=== PATIENT | male | born 1995 | race Caucasian/White ===

== ENCOUNTER 2023-05-23 14:41 | Outpatient (AMB) | payer BC, SELFPAY ==
[2023-05-23 14:46] VITALS: BP 120/90; PULSE 40; BMI 26.7
--- NOTE | 2023-05-23 14:46 | A.OFFVIS_ITS ---
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 We have seen him in the past in 2018. At that time, he had various symptoms including palpitations, dizziness extra. From notes, EKG with sinus bradycardia at 47 at that time and Holter had shown rare PVCs. He was only reassured. More recently, he had an episode of palpitations sometimes in December. After that, he is undergone workup through cardiology at [facility]. He has had episodes where he feels like his heart is beating very fast and also the sensation that heart is very erratic as well. Some dizziness off and on. No clear syncope. Otherwise, unlimited exercise tolerance. He has been extremely active in the past including playing various sports and also cycling outside extra. That might be the reason for low resting heart rate. [facility] Family History (Updated 05/23/23 @ 14:51 by Cassidy Singh MA) Mother A-fib Maternal Grandmother A-fib Social History (Updated 05/23/23 @ 14:52 by Cassidy Singh MA) Alcohol intake: current Alcohol intake frequency: a few times a week Patient Tobacco Use Status: Never used Tobacco Review of Systems Const Denies chills, Denies fatigue, Denies fever(s), Denies frequent falls, Denies weakness, Denies weight gain and Denies weight loss ENT Reports dizziness Card Reports chest pain, Denies leg edema, Reports lightheadedness, Denies palpitations, Denies dyspnea, Denies dyspnea on exertion and Denies orthopnea Resp Denies cough, Denies dyspnea and Denies dyspnea on exertion GI Denies bloating and Denies change in bowel habits Musc Denies muscle weakness, Denies numbness and Denies tingling Neuro Reports dizziness, Denies frequent falls, Denies numbness, Denies tingling and Denies weakness Endo Denies fatigue and Denies palpitations Physical Exam Vital Signs: Last Vital Signs Pulse 40 L 05/23/23 14:46 BP 120/90 H 05/23/23 14:46 BMI result Body Mass Index 26.7 Const General: comfortable and no acute distress Orientation/consciousness: patient oriented x3 HEENT Other: Unremarkable Head: Yes normal to inspection Neck Neck: Yes normal visual inspection Chest Chest palpation & inspection: normal inspection of the chest Resp Auscultation: clear to auscultation bilaterally Cardio Palpation: normal PMI Heart sounds: S1 normal heart sound present, S2 normal heart sound present, no gallops, no murmurs and no rubs GI Palpation (GI): Soft to palpation Back/Spine/Pelvis Other: unremarkable Skin General skin exam: no rashes or lesions noted Neuro General: patient oriented x3 Extrem General: Yes normal to inspection Psych Mental Status: mental status grossly normal Office Procedures EKG Details: EKG with sinus bradycardia at 40/Min; no significant ST-T changes and otherwise [place]remarkable[place] [id number], Complete Assessment & Plan Assessment & Plan (1) Sinus bradycardia: Code(s): R00.1 - Bradycardia, unspecified (2) Heart palpitations: Code(s): R00.2 - Palpitations (3) Elevated blood pressure reading without diagnosis of hypertension: Code(s): R03.0 - Elevated blood-pressure reading, without diagnosis of hypertension Plan All the available records were reviewed. In our prior notes from 2018, described to have sinus bradycardia 47 with Holter showing rare PVCs. At that time, normal chronotropic response on the stress test. More recently, cardiology consultation Say describes dizziness/presyncope episodes and there is mention of a blocked PAC and racing question of heart block. However, when he underwent Holter/30 day monitoring, there was really no significant arrhythmias noted. Holter had described rare PVCs/bradycardia during sleep. Heart rate average was 66/Min. In the 30 day monitor, average heart rate was 61/Min with rare PACs/PVCs. The patient had triggered the device 240 2 times but association is only with sinus/rare ectopy. In the echocardiogram, LVEF 65-70% with normal diastolic function. Normal right ventricular size and systolic function. Normal atrial dimensions. Valves are also unremarkable. In the stress test, he was able to exercise for 10:54 minutes on Gary protocol. Achieved 13.4 Mets. Reached 98% of max predicted heart rate. No ischemic findings on the EKG. Blood pressure responses also appropriate. Overall unremarkable. Hence essentially resting sinus bradycardia and rare supraventr icular/ventricular ectopy but symptoms are somewhat out of proportion to the findings. He might have had short runs of SVT but not clear. Either way, as he has slow heart rates at baseline not going to be suitable for any meds. So far, no evidence of any advanced AV blocks. Considering his young age and fairly active lifestyle vagal tone may just play a role. At this time, I am just reassuring him as much. It seems that was what done by other cardiologists including EP who have seen recently. I do suggest however doing a sleep study to ensure he does not have any occult obstructive sleep apnea. He agrees with that. With regard to blood pressure, borderline high on the diastolic side. Systolic seems normal. Possibly lose some weight for now but hold off meds. We discussed about this. Follow-up will be arranged. We will also need to look for the inpatient admission discharge summary from [facility]. Total time spent including review of data, counseling, documentation, coordination of care-50 minutes. All the available records reviewed. Orders: Orders RT home sleep study Today G47.33 - Obstructive sleep apnea (adult) (pediatric) Coding Level of Care Code New Pt Level 4 (94166) Diagnoses Sinus bradycardia R00.1 Heart palpitations R00.2 Elevated blood pressure reading without diagnosis of hypertension R03.0 CPT Codes EKG - CPT: [id number]-[id number], Complete ([id number])
== END 2023-05-23 15:23 | disposition home or self-care (01) ==
PROVIDERS: PCP Pediatrics; Visit Provider Internal Medicine
DX: R00.1 Bradycardia, unspecified (principal); R00.2 Palpitations; R03.0 Elevated blood-pressure reading, without diagnosis of hypertension
CPT/HCPCS: 93010; 99204

== ENCOUNTER → 2023-05-23 14:41 | Outpatient (BNVA) | payer BC, SELFPAY | PROVIDERS: PCP Pediatrics; Visit Provider Internal Medicine | DX: R00.1 Bradycardia, unspecified (principal); R00.2 Palpitations; R03.0 Elevated blood-pressure reading, without diagnosis of hypertension | CPT/HCPCS: 93005 ==

== ENCOUNTER 2023-08-15 14:24 | Outpatient (AMB) | payer BC, SELFPAY ==
--- NOTE | 2023-08-15 14:32 | A.OFFVIS_ITS ---
Vital Signs 08/15/23 14:33 Height 6 ft Weight 190 lb BMI 25.8 BP 116/60 Blood Pressure Location Lt brachial Position Sitting Pulse 42 L Pulse Source Monitor Intake Visit Reasons: f/u (home sleep study denied by ins) Allergies No Known Allergies Allergy (Unverified 11/14/19 16:33) Medication List - Last Reconciled 08/15/23 by Javon Rees MD buspirone 5 mg PO BID HPI Comments Details: Ry returns for follow-up. Recently seen in consultation regarding arrhythmias. We have seen him originally in 2018. At that time, he had various symptoms including palpitations, dizziness extra. From notes, EKG with sinus bradycardia at 47 at that time and Holter had shown rare PVCs. He was only reassured. More recently, he has been having brief episodes of palpitations, most likely lasting only seconds. He underwent extensive workup through [facility]. Otherwise, no symptoms like presyncope or syncope. Extremely active with no limitations. Please various sports including bicycling extra. No new concerns otherwise. [facility] Family History (Updated 05/23/23 @ 14:51 by Cassidy Singh DIRECTOR IT) Mother A-fib Maternal Grandmother A-fib Social History (Updated 05/23/23 @ 14:52 by Cassidy Singh CMA) Alcohol intake: current Alcohol intake frequency: a few times a week Patient Tobacco Use Status: Never used Tobacco Review of Systems Const Denies weakness ENT Denies dizziness Card Reports chest pain, Denies chest pain with activity, Denies syncope, Denies rapid heart rate, Denies pedal edema, Denies edema, Denies leg edema, Denies lightheadedness, Denies palpitations, Denies dyspnea, Denies dyspnea on exertion and Denies orthopnea Resp Denies cough, Denies dyspnea and Denies dyspnea on exertion GI Denies hematochezia and Denies change in stool character Musc Denies abnormal gait, Denies muscle cramps, Denies muscle weakness, Denies numbness, Denies radiating pain into limb and Denies tingling Neuro Denies abnormal gait, Denies dizziness, Denies syncope, Denies numbness, Denies tingling and Denies weakness Endo Denies palpitations Physical Exam Vital Signs: Last Vital Signs Pulse 42 L 08/15/23 14:33 BP 116/60 08/15/23 14:33 BMI result Body Mass Index 25.8 Const General: comfortable and no acute distress Orientation/consciousness: patient oriented x3 HEENT Other: Unremarkable Head: Yes normal to inspection Neck Neck: Yes normal visual inspection Chest Chest palpation & inspection: normal inspection of the chest Resp Auscultation: clear to auscultation bilaterally Cardio Palpation: normal PMI Heart sounds: S1 normal heart sound present, S2 normal heart sound present, no gallops, no murmurs and no rubs GI Palpation (GI): Soft to palpation Back/Spine/Pelvis Other: unremarkable Skin General skin exam: no rashes or lesions noted Neuro General: patient oriented x3 Extrem General: Yes normal to inspection Psych Mental Status: mental status grossly normal Office Procedures EKG Details: EKG with sinus bradycardia at 42/Min; no significant ST-T changes; normal CO and corrected QT. No evidence of pre-excitation. [id number], Complete Assessment & Plan Assessment & Plan (1) Heart palpitations: Code(s): R00.2 - Palpitations Category: Medical (2) Sinus bradycardia: Code(s): R00.1 - Bradycardia, unspecified Category: Medical (3) PAC (premature atrial contraction): Code(s): I49.1 - Atrial premature depolarization Category: Medical (4) PVC (premature ventricular contraction): Code(s): I49.3 - Ventricular premature depolarization Category: Medical Plan Cardiac results summarized. In our prior notes from 2018, described to have sinus bradycardia 47 with Holter showing rare PVCs. At that time, normal chronotropic response on the stress test. Holter/30 day monitoring- no significant arrhythmias noted. Holter had described rare PVCs/bradycardia during sleep. Heart rate average was 66/Min. In the 30 day monitor, average heart rate was 61/Min with rare PACs/PVCs. In the echocardiogram, LVEF 65-70% with normal diastolic function. Normal right ventricular size and systolic function. Normal atrial dimensions. Valves are also unremarkable. In the stress test, he was able to exercise for 10:54 minutes on Gary protocol. Achieved 13.4 Mets. Reached 98% of max predicted heart rate. No ischemic findings on the EKG. Blood pressure responses also appropriate. Overall unremarkable. Overall, he has sinus bradycardia and supraventricular/ventricular ectopy and possibly short runs of SVT but nothing persistent. As he also has resting sinus bradycardia, he is not going to be suitable for any beta-blockers or calcium channel blockers. We discussed this at length today. As episodes of palpitations are extremely brief and last only seconds, no specific interventions for now. In case they do get prolonged, then may need another Holter. With regard to the bradycardia episodes, probably all from active lifestyle and high vagal tone. Again no specific interventions and he does not need a pacemaker. Plan discussed in great detail and he understands. We will check another Holter in 1 year. Total time spent including review of data, counseling, documentation, coordinati on care-31 minutes. Orders: Orders ECG 7 day holter monitor 1 Year I47.10 - Supraventricular tachycardia, unspecified, R00.1 - Bradycardia, unspecified, R00.2 - Palpitations Coding Level of Care Code Est Pt Level 4 (20127) Diagnoses Heart palpitations R00.2 Sinus bradycardia R00.1 PAC (premature atrial contraction) I49.1 PVC (premature ventricular contraction) I49.3 CPT Codes EKG - CPT: [id number]-[id number], Complete ([id number])
[2023-08-15 14:33] VITALS: BP 116/60; PULSE 42; BMI 25.8
== END 2023-08-15 15:00 | disposition home or self-care (01) ==
PROVIDERS: PCP Pediatrics; Visit Provider Internal Medicine
DX: R00.2 Palpitations (principal); R00.1 Bradycardia, unspecified; I49.1 Atrial premature depolarization; I49.3 Ventricular premature depolarization
CPT/HCPCS: 93010; 99214

== ENCOUNTER → 2023-08-15 14:24 | Outpatient (BNVA) | payer BC, SELFPAY | PROVIDERS: PCP Pediatrics; Visit Provider Internal Medicine | DX: R00.2 Palpitations (principal); R00.1 Bradycardia, unspecified; I49.1 Atrial premature depolarization; I49.3 Ventricular premature depolarization; I47.10 Supraventricular tachycardia, unspecified | CPT/HCPCS: 93005 ==

== ENCOUNTER 2024-04-17 14:45 | Outpatient (AMB) | payer BC, SELFPAY ==
[2024-04-17 15:02] VITALS: BP 110/78; PULSE 67; BMI 27.0
--- NOTE | 2024-04-17 15:02 | MHC.OFFVIS ---
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 He was previously seen in the office for similar symptoms, at which time a Holter monitor revealed bradycardia and rare PVCs. Patient underwent a thorough cardiac workup at [facility], including a 30 day cardiac event monitor, echocardiogram and stress test all of which were negative. However, during the 30 day monitoring., patient was informed of the possible life-threatening arrhythmia and was called on it, but there are no records supporting this claim in the report. Today, the patient returns reporting similar symptoms. He is aware of bradycardia but notes that it persist during exertion such as walking or ejaculation, and when he checks his heart rate during these times the in the 40s. Patient checks for this due to symptoms of lightheadedness. Otherwise patient notes that his resting heart rate is mostly in the 50s. Additionally, the patient has been experiencing left-sided chest pain under the nipple, radiating into his back and he reports that this has been ongoing for the past 1 year. The pain comes on and off with exertion as well as with rest. Patient reports that he remains active and has no intolerance to exercise. He denies any associated symptoms of fatigue, orthopnea, PND, leg edema, presyncope, or syncope. COUNTS INCLUDE 234 BEDS AT THE [facility] Family History Mother A-fib Maternal Grandmother A-fib Social History Alcohol intake: current Alcohol intake frequency: a few times a week Patient Tobacco Use Status: Never used Tobacco Review of Systems Const Denies chills, Denies fatigue, Denies fever(s), Denies weight gain and Denies weight loss ENT Denies dizziness Card Reports chest pain, Reports irregular heart rhythm, Denies leg edema, Denies lightheadedness, Denies palpitations, Denies dyspnea on exertion, Denies orthopnea and Denies other Resp Denies cough and Denies dyspnea on exertion GI Denies hematochezia and Denies change in stool character Musc Denies abnormal gait, Denies muscle weakness, Denies numbness, Denies radiating pain into limb and Denies tingling Neuro Denies abnormal gait, Denies dizziness, Denies numbness and Denies tingling Endo Denies fatigue and Denies palpitations Physical Exam Vital Signs: Last Vital Signs Pulse 67 04/17/24 15:02 BP 110/78 04/17/24 15:02 BMI result Body Mass Index 27.0 Const General: cooperative, healthy appearing, comfortable and no acute distress Orientation/consciousness: patient oriented x3 HEENT Head: Yes normal to inspection Neck Neck: Yes normal visual inspection, Yes trachea midline and Yes supple Chest Chest palpation & inspection: normal inspection of the chest Resp Effort & Inspection: normal respiratory effort Auscultation: clear to auscultation bilaterally, no crackles, no rales, no rhonchi and no wheezes Cardio Jugular venous distension: no JVD Palpation: normal PMI Rate: regular rate Rhythm: regular rhythm Heart sounds: S1 normal heart sound present, S2 normal heart sound present, no click, no gallops, no murmurs and no rubs Peripheral pulses: Peripheral pulses 2+ throughout GI Inspection: Yes normal to inspection Palpation (GI): Soft to palpation Auscultation: normal bowel sounds Skin General skin exam: no rashes or lesions noted Neuro General: patient oriented x3 Extrem General: Yes normal to inspection, No no pedal edema and No calf tenderness Psych Appearance: grossly normal Mental Status: mental status grossly normal Speech and movement: Normal speech and movement present Office Procedures EKG Details: EKG today shows normal sinus rhythm, 67 beats per minute, nonspecific T-wave in lead 3 which could be a normal variant, normal [place], [place] [id number], Complete Assessment & Plan Assessment & Plan (1) Atypical chest pain: Code(s): R07.89 - Other chest pain Plan: No history of coronary artery disease, ischemic disease, or cardiomyopathy. Patient's symptoms of chest pain sound atypical in nature however we will proceed with a exercise treadmill stress test to look for any ischemic changes. (2) Dizziness: Code(s): R42 - Dizziness and giddiness Plan: Previous echo with EF 65-70% with normal wall motion and valve function. We will repeat an echo to look for any changes. Advised patient to increase water intake and to avoid caffeinated beverages. Sometimes patient states his symptoms are positional. Patient feels strongly about a tilt-table test, an order in place. Blood pressure stable today at 110/78. (3) Heart palpitations: Code(s): R00.2 - Palpitations Category: Medical Plan: EKG today showed normal sinus rhythm. Previous Holter so with rare PVCs shown. Due to his low resting heart rate, patient not suitable for any medication intervention at this time. Advised to continue with regular exercise. Follow up with the completion of test. In the interim, patient will call us with any concerns or change in symptoms. This note was generated using voice recognition software. While every effort has been made to ensure accuracy and proper wood patternmaker, there may be occasional errors that could affect the content or meaning of the described symptoms. Orders: Orders CA stress test Today R00.2 - Palpitations ECG Tilt Table Test Today AMB EKG-In Office Today R00.2 - Palpitations CA echo transthoracic complete Today R00.2 - Palpitations ECG 7 day holter monitor Today R00.2 - Palpitations Coding Level of Care Code Est Pt Level 4 (74149) Diagnoses Atypical chest pain R07.89 Dizziness R42 Heart palpitations R00.2 CPT Codes EKG - CPT: 77714-[id number], Complete ([id number]) Time Spent (min) 32 Comment Time spent in reviewing the chart, test results, assessment, counseling and documentation.
== END 2024-04-17 15:54 | disposition home or self-care (01) ==
DX: R07.89 Other chest pain (principal); R42 Dizziness and giddiness; R00.2 Palpitations
CPT/HCPCS: 93010; 99214

== ENCOUNTER → 2024-04-17 14:45 | Outpatient (BNVA) | payer BC, SELFPAY | DX: R00.2 Palpitations (principal); R07.89 Other chest pain; R42 Dizziness and giddiness | CPT/HCPCS: 93005 ==

== ENCOUNTER → 2024-05-07 07:52 | Outpatient (REF) | payer BC, SELFPAY ==
--- OUTSIDE RECORDS SUMMARY | 2024-05-07 07:55 | XMS_ITS | Encounter Summary ---
Author Organization Merged With [facility] Address [address] [place] [id number] Phone Care Team Providers Care Competency Evaluated Nurse Aide Name Role Phone Trell Serrano MD Primary Care Provider [phone] Trell Serrano MD Primary Care Provider [phone] Tona Barksdale CNP Unavailable [phone] Douglas Rojas MD Unavailable [phone] Encounter Details Date Type Department Care Team (Late st Contact Info) Description 01/25/2023 Procedure Pass [facility] [address] [place] [address] Social History Tobacco Use Types Packs/Day Years Used Date Smoking Tobacco: Never Smokeless Tobacco: Never Alcohol Use Standard Drinks/Week Comments Yes 0 (1 standard drink = 0.6 oz pur e alcohol) 4-5/ week Education Answer Date Recorded Are you interested in more education? Not on apple e 06/25/2022 Are you concerned about learning? Not on file 06/25/2022 No 06/25/2022 No 06/25/2022 Digital Access Answer Date Recorded No 07/26/2022 No 07/26/2022 Reliable internet access at home? Not on file 07/26/2022 Device with a working camera? Not on file Sex and Gender Information Value Date Recorded Sex Assigned at Male 01/18/2023 11:43 PM EST Gender Identity Male 01/18/2023 11:43 PM EST Sexual Orientation Not on file documented as of this encounter Plan of Treatment Upcoming Encounters Date Type Department Care Team (Late Contact Info) Description 05/13/2024 9:15 AM EDT Office Visit [facility] [address] [address] Antonia Onofre PA-C 104 [facility] [address] [place] [address] 05/13/2024 9:30 AM EDT Evaluation [facility] 104 [facility] [address] [place] [address] 06/20/2024 8:30 AM EDT Office Visit [address] [address] Douglas Rojas MD [address] [address] 06/25/2024 8:40 AM EDT Telemedicine [facility] [address] [address] Trell Serrano MD 2 [employer] [address] [phone] 09/12/2024 9:00 AM EDT Office Visit [facility] [address] [address] Trell Serrano MD [address] [phone] documented as of this encounter Visit Diagnoses Not on filedocumented in this encounter Additional Health Concerns Assessment Noted Time PHQ-2 Depression Total Score: 0 08/13/19 23 1:26 PM EDT documented as of this encounter Care Teams Competency Evaluated Nurse Aide Relationship Specialty Start Date End Date Trell Serrano MD 2 [facility] [address] [phone] PCP - General Family Medicine 04/19/22 03/06/23 Trell Serrano MD [address] [phone] PCP - General Family Medicine 03/07/23 Tona Barksdale CNP [address] [phone] Nurse Practitioner 06/08/23 Douglas Rojas MD [address] [place] [id number] Cardiology 06/08/23 documented as of this encounter Additional Source Comments The information contained in this document represents components of the legal health record. It is not the complete legal health record.[facility]
--- OUTSIDE RECORDS SUMMARY | 2024-05-07 07:55 | XMS_ITS | Encounter Summary ---
Author Organization [facility] Address [address] [place] [address] [place] [address] Phone Care Team Providers Care Civil Rights Investigator Name Role Phone Trell Serrano MD Primary Care Provider [phone] Tona Barksdale ACCOUNT DEVELOPMENT SPECIALIST Unavailable [phone] Douglas Rojas MD Unavailable [phone] Reason for Referral * Consultation (Elective) - New Request Specialty Diagnoses / Procedures Referred By [place] Referred To Contact Otolaryngology Diagnoses Fluid level behind tympanic membrane of both ears Trell Serrano MD [address] [facility] [address] [place] [address] Email: Yifan Hills MD [address] [facility] [address] [place] [address] Email: [email or web address] Referral ID Status Reason Start Date Expiration Date V isits Requested Visits Authorized [id number] New Request 04/19/2024 04/19/2025 1 1 Scheduling Instructions PLEASE CALL the office to schedule your appointment. [facility] - Dr. Yifan Hills [address] [facility], [address], [place] [address] Encounter Details Date Type Department Care Team ([facility] st Contact Info) Description 04/19/2024 Orders Only [facility] 2 [facility] [address] [place] [address] Trell Serrano MD 2 [facility] 180 [place] [address] [email or web address] Fluid level behind tympanic membrane of both ears (Primary Dx) Social History Tobacco Use Types Packs/Day Years Used Date Smoking Tobacco: Never Passive Smoke Exposure: Past Smokeless Tobacco: Never Alcohol Use Standard Drinks/Week Comments Yes 2 (1 standard drink = 0.6 oz pur e alcohol) 3/ week Education Answer Date Recorded Are you interested in more education? Not on apple e 06/25/2022 Are you concerned about learning? Not on file 06/25/2022 No 06/25/2022 No 06/25/2022 Digital Access Answer Date Recorded No 07/26/2022 No 07/26/2022 Reliable internet access at home? Not on file 07/26/2022 Device with a working camera? Not on file Intimate Partner Violence Answer Date R ecorded Are you denied basic needs s uch as food, clothing, or medical care? No 09/12/2023 In the past 12 months have y ou been in a relationship with a person who hurts, threatens, or tries to control you? No 09/12/2023 Are you denied basic needs s uch as food, clothing, or medical care? No 09/12/2023 In the past 12 months have y ou been in a relationship with a person who hurts, threatens, or tries to control you? No 09/12/2023 Sex and Gender Information Value Date Recorded Sex Assigned at Male 01/18/2023 11:43 PM EST Gender Identity Male 01/18/2023 11:43 PM EST Sexual Orientation Not on file documented as of this encounter Plan of Treatment Upcoming Encounters Date Type Department Care Team (Late st Contact Info) Description 05/13/2024 9:15 AM EDT Office Visit [facility] 104 [facility] 100 [place] [address] Antonia Onofre, OTIS 104 [facility] 100 [place] [address] 05/13/2024 9:30 AM EDT Evaluation [facility] 104 [facility] 100 [place] [address] 06/20/2024 8:30 AM EDT Office Visit [facility] 22 [facility] 301 [place] [address] Douglas Rojas MD 22 [facility] 301 [place] [address] 06/25/2024 8:40 AM EDT Telemedicine [facility] 2 [employer] [address] [address] Trell Serrano MD [address] [facility] [address] [phone] 09/12/2024 9:00 AM EDT Office Visit [facility] [address] [facility] [address] [address] Trell Serrano MD 2 [employer] [address] [phone] Scheduled Referrals Name Type Priority Associated Diagnoses Order Schedule Ambulatory referral to Otolaryngology Outpatient Referral Routine Fluid level behind tympanic membrane of both ears Ordered: 04/19/2024 documented as of this encounter Visit Diagnoses Diagnosis Fluid level behind tympanic membrane of both ears- Primary documented in this encounter Additional Health Concerns Assessment Noted Time PHQ-9 Depression Total Score: 5 04/25/19 24 8:35 AM EST PHQ-2 Depression Total Score: 0 09/12/19 24 1:28 PM EDT documented as of this encounter Care Teams Civil Rights Investigator Relationship Specialty Start Date End Date Trell Serrano MD 2 [employer] [address] [phone] PCP - General Family Medicine 03/07/23 Tona Barksdale CNP [address] [place] [address] [address] [place] [address] Nurse Practitioner 06/08/23 Douglas Rojas MD [address] [place] [address] [address] [place] [address] Cardiology 06/08/23 documented as of this encounter Additional Source Comments The information contained in this document represents components of the legal health record. It is not the complete legal health record.[facility]
--- OUTSIDE RECORDS SUMMARY | 2024-05-07 07:55 | XMS_ITS | Clinical Summary ---
Author Organization [facility] Address [address] [place] [address] Phone Care Team Providers Care Yoghurt Maker Name Role Phone Trevor Vásquez MD Primary Care Provider [phone] Surgical History Surgery Date Site/Laterality Comments KNEE ARTHROSCOPY W/ MENISCAL REPAIR 2011 PROCEDURE: [place] ARTHROSCOPY KNEE W/MENISCUS RPR MEDIAL/LATERAL; COMMENT: R knee OTHER SURGICAL HISTORY 05/13 PROCEDURE: ---- OTHER ----; COMMENT: trichilemmal cyst Medical History Medical History Date Comments Other developmental speech o r language disorder DX:Other developmental speec h or language disorder; COMMENT: language delay Contact dermatitis and other eczema due to other specified agent DX:Contact dermatitis and other eczema due to other specified agent; COMMENT: eczema Medial meniscus tear surg 07/08 DX:Medial m eniscus tear; COMMENT: lateral meniscus extensive tearing Asthma amadeo Chávez DX:Asthma; COMME NT: on Asmanex 04/10 Family History Medical History Relation Name Comments Depression Father 2000 Other: heart Paternal Grandmother Relation Name Status Comments Brother Alive older Father suicide 2000 Mother Alive Paternal Grandmother Sister Alive x3 - both young er Social History Tobacco Use Types Packs/Day Years Used Date Smoking Tobacco: Never Smokeless Tobacco: Never Alcohol Use Standard Drinks/Week Comments Yes 0 (1 standard drink = 0.6 oz pur e alcohol) Sex and Gender Information Value Date Recorded Sex Assigned at Not on file Legal Sex Male 6:03 PM EST Gender Identity Not on file Sexual Orientation Not on file Obstetrics History Plan of Treatment Upcoming Encounters Date Type Department Care Team (Late st Contact Info) Description 06/04/2024 2:30 PM EDT Appointment [facility] Xray [address] [place] [address] Health Maintenance Due Date Last Done Comments Pneumococcal Vaccine: Pediatrics (0 to 5 Years) and At-Risk Patients (6 to 64 Years) (1 of 2 - PCV) 2013 COVID-19 Vaccine (1 - season) 2023 Influenza Vaccine (#1) 2023 7, 01/19/2016, 03/02/2015, Additional history exists Depression Screening 04/19/2024 HIV Screening 04/19/2024 Hepatitis C Screening 04/19/2024 Social Influencers of Health Screening 04/19/2024 DTaP,Tdap,and Td Vaccines (8 - Td or Tdap) 09/20/2026 09/20/2016, 05/29/2006, 05/03/1999, Additional history exists Hepatitis B Vaccines Completed 01/31/1995, 1994, 1994 HIB Vaccines Completed 08/01/1995, 07/1994, 1994, Additional history exists IPV Vaccines Completed 05/03/1999, 05/1995, 1994, Additional history exists MMR Vaccines Completed 05/03/1999, 08/01/1995 Varicella Vaccines Completed 02/24/2009, 05/05/1995 Meningococcal ACWY Vaccine Completed 04/19/2012, HPV Vaccines Aged Out No longer eligi ble based on patient's age to complete this topic Hepatitis A Vaccines Aged Out No long er eligible based on patient's age to complete this topic Meningococcal B Vacine Aged Out No lo nger eligible based on patient's age to complete this topic RSV Immunization Patients Under 20 months Aged Out No longer eligible based on patient's age to complete this topic Insurance [facility] Member Subscriber Plan / Payer (Ef fective 2024-Present) Name:Ry Pino Relation to Subscriber:Self Name:AlvarezRy Michelle Payer ID:[id number] Type:Not on file Address: [place] [id number] Care Teams Yoghurt Maker Relationship Specialty Start Date End Date Trevor Vásquez MD PCP - General Internal Medicine 08/16/16
--- OUTSIDE RECORDS SUMMARY | 2024-05-07 07:55 | XMS_ITS | Encounter Summary ---
Author Organization [facility] Address [address] [place] [address] Phone Care Team Providers Care Storage Battery Inspector Name Role Phone Trell Serrano MD Primary Care Provider [phone] Trell Serrano MD Primary Care Provider + [phone] Tona Barksdale CNP Unavailable [phone] Douglas Rojas MD Unavailable [phone] Encounter Details Date Type Department Care Team (Late st Contact Info) Description 02/06/2023 Procedure Pass [facility], Ct Scan - [address] [address] Social History Tobacco Use Types Packs/Day Years [...] Description 05/13/2024 9:15 AM EDT Office Visit [facility] [address] [address] Antonia Onofre PA-C [address] [address] 05/13/2024 9:30 AM EDT Evaluation [facility] [address] [address] 06/20/2024 8:30 AM EDT Office Visit [facility] [address] [place] [address] Douglas Rojas MD [address] [place] [address] 06/25/2024 8:40 AM EDT Telemedicine [facility] [address] [address] Trell Serrano MD [address] [phone] 09/12/2024 9:00 AM EDT Office Visit [facility] [address] [address] Trell Serrano MD [address] [phone] documented as of this encounter Visit Diagnoses Not on filedocumented in this encounter Additional Health Concerns Assessment Noted Time PHQ-2 Depression Total Score: 0 01/27/20 23 8:32 AM EST documented as of this encounter Care Teams Storage Battery Inspector Relationship Specialty Start Date End Date Trell Serrano MD [address] [phone] PCP - General Family Medicine 04/19/22 03/06/23 Trell Serrano MD [address] [phone] PCP - General Family Medicine 03/07/23 Tona Barksdale CNP [address] [phone] Nurse Practitioner 06/08/23 Douglas Rojas MD [address] [place] [phone] Cardiology 06/08/23 documented as of this encounter Additional Source Comments The information contained in this document represents components of the legal health record. It is not the complete legal health record.[facility]
--- OUTSIDE RECORDS SUMMARY | 2024-05-07 07:55 | XMS_ITS | Encounter Summary ---
Author Organization [facility] Address [address] [place] [address] Phone Care Team Providers Care Production Grader Name Role Phone Trell Serrano MD Primary Care Provider + [phone] Trell Serrano MD Primary Care Provider + [phone] Tona Barksdale CNP Unavailable [phone] Douglas Rojas MD Unavailable [phone] Encounter Details Date Type Department Care Team (Late st Contact Info) Description 01/24/2023 Procedure Pass Non-Invasive Cardiology [address] [place] [address] Social History Tobacco Use Types Packs/Day Years [...] Description 05/13/2024 9:15 AM EDT Office Visit [facility] [address] [address] Antonia Onofre PA-C 104 [facility] 100 [place] [address] 05/13/2024 9:30 AM EDT Evaluation [facility] 104 [facility] 100 [place] [address] 06/20/2024 8:30 AM EDT Office Visit [address] [address] Douglas Rojas MD [address] [address] 06/25/2024 8:40 AM EDT Telemedicine [facility] [address] [address] Trell Serrano MD 2 [employer] [address] [phone] 09/12/2024 9:00 AM EDT Office Visit [facility] [address] [address] Trell Serrano MD [address] [phone] documented as of this encounter Visit Diagnoses Not on filedocumented in this encounter Additional Health Concerns Assessment Noted Time PHQ-2 Depression Total Score: 0 08/13/19 23 1:26 PM EDT documented as of this encounter Care Teams Production Grader Relationship Specialty Start Date End Date Trell Serrano MD [address] [employer] [address] [phone] PCP - General Family Medicine 04/19/22 03/06/23 Trell Serrano MD [address] [phone] PCP - General Family Medicine 03/07/23 Tona Barksdale CNP [address] [phone] Nurse Practitioner 06/08/23 Douglas Rojas MD [address] [place] [address] Cardiology 06/08/23 documented as of this encounter Additional Source Comments The information contained in this document represents components of the legal health record. It is not the complete legal health record.[facility]
--- OUTSIDE RECORDS SUMMARY | 2024-05-07 07:55 | XMS_ITS | Clinical Summary ---
Author Organization [facility] Address [address] [place] [phone] Phone Care Team Providers Care Technical Administrative Assistant Name Role Phone Trell Serrano MD Primary Care Provider [phone] Tona Barksdale INSURANCE CLAIMS ANALYST Unavailable [phone] Douglas Rojas MD Unavailable [phone] Allergies No known active allergies Medications Medication Sig Dispensed Refills Start Date End Date Status sertraline (ZOLOFT) 25 MG tabletIndications:A nxiety,Depression, unspecified depression type TAKE 1 TABLET (25 MG TOTAL) BY MOUTH DAILY. 90 tablet 1 03/14/2023 Active Additional Information Patient not taking.Reported on 03/23/2023 fluticasone propionate (FLONASE) 50 mcg/actuation nasal sprayIndications:Ac stebbins effusion of left ear SPRAY 2 SPRAYS BY NASAL ROUTE DAILY 48 mL 05/14/2023 Active busPIRone (BUSPAR) 5 MG tablet Take 5 mg by mouth 2 (two) times a day. Active sertraline (ZOLOFT) 25 MG tablet 1 tab daily for 3 weeks then 2 tabs daily 90 tablet 04/16/2024 Active Active Problems Problem Noted Date Diagnosed Date Palpitations 03/09/2023 Assessment & Plan (04/16/2024 11:41 AM EST): H/o atypical chest pain. S/p ETT - normal. Had seen cardiology. F/u as planned. Assessment & Plan (04/09/2023 11:13 PM EST): Patient's palpitations have come down currently. Anxiety 02/16/2023 Assessment & Plan (04/16/2024 11:41 AM EST): Ongoing symptoms. Not controlled. Tried zoloft 1 week only and stopped. Reiterated to try SSRI again, Aim to increase to 50 mg . Zoloft new script sent. F/u 6 weeks . VV . He lives in [facility] [place]. Restart buspar 5 mg bid. Encouraged to try therapy. Assessment & Plan (09/12/2023 3:06 PM EDT): Reports symptoms well-controlled on BuSpar 5 mg twice daily. Continue. Assessment & Plan (06/09/2023 2:41 PM EDT): Patient continues on BuSpar 5 mg twice daily. Patient is doing well on this dose. No side effects. He has Atarax 25 mg as needed. He has not needed to use this. He is aware that he can take another 5 mg of Buspar daily if his anxiety symptoms increase and to let me know when he does. He was trialed on 10 mg twice daily and stated that he did not like the side effects. Patient has been stable and will reach out if anything changes. He has a physical exam in June with Dr. Serrano. Assessment & Plan (03/23/2023 4:28 PM EST): Medications: BuSpar. Recommended counseling. Therapist offered through his work- will set up an initial appointment Instructed patient to contact office or on-call physician promptly should condition worsen or any new symptoms appear and provided on-call telephone numbers. IF THE PATIENT HAS ANY SUICIDAL OR HOMICIDAL IDEATIONS, CALL THE OFFICE, DISCUSS WITH A SUPPORT MEMBER, OR GO TO THE ER IMMEDIATELY. Patient was agreeable with this plan. Follow up: 1 month. Continue exercising and building coping skills to deal with anxiety In 2 weeks, if still feeling anxious and side effects are not worsening can increase to Buspar 20 mg daily. Advised 10 mg BID or 10 mg in the morning and 5 mg in the afternoon and at night. Continue exercising and building coping skills to deal with anxiety Assessment & Plan (02/16/2023 4:43 PM EST): He was recently diagnosed with heart arrhythmia. He is followed by cardiology. Hx anxiety and depression. Not on medication and not currently seeing a therapist. Started him on Zoloft 25 mg E-visit in 2 weeks- will increase 50 mg if tolerating medication Reviewed side effects- information provided Referral to [employer] to be connected with a therapist Referral to [facility] Depression 02/16/2023 Assessment & Plan (02/16/2023 4:43 PM EST): He was recently diagnosed with heart arrhythmia. He is followed by cardiology. Hx anxiety and depression. Not on medication and not currently seeing a therapist. Started him on Zoloft 25 mg E-visit in 2 weeks- will increase 50 mg if tolerating medication Reviewed side effects- information provided Referral to [employer] to be connected with a therapist Referral to [facility] Benign paroxysmal positional vertigo 02/16/2023 Assessment & Plan (02/16/2023 4:38 PM EST): Positive Standish-Hallpike Advised to take meclizine as needed for dizziness Reviewed Kev maneuver- assigned via portal to reference Follow-up in 1 to 2 weeks. If these interventions do not improve symptoms, will refer to vestibular physical therapy. Tachycardia 02/12/2023 Assessment & Plan (06/09/2023 2:38 PM EDT): Ry had a second opinion regarding his tachycardia symptoms. Recently seen by cardiology. They reviewed all of his tests and reassured him that there were no concerning findings. They recommended that he get a sleep apnea test. He wants them to review the specific episodes that occurred when he was wearing his Holter monitor. He stated that he will feel better once these are reviewed. No episodes of tachycardia since March. No cardiac symptoms. Will follow-up with cardiology Assessment & Plan (04/09/2023 11:12 PM EST): No clear evidence of supraventricular tachycardia. Patient symptoms have come down currently Assessment & Plan (02/12/2023 6:41 PM EST): He has episodes of tachycardia. These tachycardias do not have an abrupt rise and fall characteristic for SVT and or possibly related to sinus tachycardia. AV block 02/12/2023 Assessment & Plan (02/12/2023 6:42 PM EST): Episodes of AV block are noted at high heart rates. He also has sinus arrhythmia. Denies any episodes of syncope currently. These episodes also happen with artifact during the tracings. Will request for MRI and stress test to evaluate further SVT (supraventricular tachycardia) 01/29/2023 Assessment & Plan (01/29/2023 2:28 PM EST): Presyncopal event/SVT -Suspect underlying cardiac arrhythmia, possible SVT versus sick sinus syndrome -EKG on my interpretation revealed sinus rhythm with marked sinus arrhythmia, HR of 70, no ST/T wave changes, no Delta Wave. -Has had holter monitor for the last few days, no report available at this time. -Echocardiogram performed 01/25/2023 revealed normal LVEF otherwise unremarkable. -Spoke with cardiology, recommended admission for continued monitoring as well as initiation of metoprolol 12.5 mg twice daily Plan: Start metoprolol 12.5 mg twice daily Continue EKG monitoring Cardiology consulted recs appreciated Attempt to obtain limited report from monitor #[id number] Fall precautions Soft tissue mass 08/12/2022 Assessment & Plan (08/12/2022 2:00 PM EDT): Does not feel like a lymph node and area is not typical for LN. Could be a cyst. Hard tender lump in lower abdomen in midline - not soft like a lipoma. No overlying skin changes. No fevers or chills. Does not seem infected. - ultrasound ordered to better evaluate soft tissue mass - follow up with PCP after US results are back Annual physical exam 07/12/2022 Assessment & Plan (09/12/2023 3:05 PM EDT): Encouraged to continue healthy lifestyle-healthy diet, regular exercise, good sleep hygiene. - Labs ordered - UTD with vaccinations. Continue annual physical Assessment & Plan (07/12/2022 8:29 AM EDT): Encouraged to continue healthy lifestyle-healthy diet, regular exercise. Self testicular exam advised. Screening labs ordered. Up-to-date with vaccination. Continue annual physicals. Resolved Problems Problem Noted Date Diagnosed Date Resolved Date Hypophosphatemia 01/29/2023 04/16/2024 Assessment & Plan (01/29/2023 2:28 PM EST): Hypophosphatemia -Replete phosphate. Encounters Date Type Department Care Team Description 04/25/2024 Telephone [facility] [address] [place] [address] Trell Serrano MD Labs 04/19/2024 Orders Only [facility] [address] [place] [address] Trell Serrano MD Fluid level behind tympanic membrane of both ears (Primary Dx) 04/16/2024 11:35 AM EST - 04/16/2024 11:59 PM EST Hospital Encounter [facility] [address] [place] [address] Trell Serrano MD Discharge Disposition: Home or Self Care 04/16/2024 11:20 AM EST Office Visit [facility] [address] [place] [address] Trell Serrano MD Anxiety (Primary Dx); Screening for metabolic disorder; Palpitations; Fluid level behind tympanic membrane of both ears from Last 3 Months Immunizations Name Administration Dates Next Due COVID-19 (Pre-12/19) Pfizer Vaccine, mRNA, gaby-sucrose, PF 06/05/2021,05/04/2020 DTP 1994,1994,1994 DTaP 05/03/1999,11/03/1995 Flu H1n1 Tiv Preservative Free 02/10/2009 Hepatitis B, unspecified formulation 01/31/1995, 1994,1994 Hib, unspecified formulation 08/01/1995, 1994,1994,06/27 IPV 05/03/1999 Influenza Quadrivalent Prese rvative Free IM 02/07/2014,11/16/2012 Influenza, Unspecified Formulation 01/03,01/19/2016,03/02/2015,12/02,11/04/2010,04/19/2010,02/15/2009 ,12/15/2007,01/06/2007,12/29/2005,07/1997,12/18/1996,01/10/1996, 6 MMR 05/03/1999,08/01/1995 Meningococcal MCV4P 04/19/2012,10/06/2006 Polio, Unspecified Formulation 1994,1994,1994 Tdap 07/10/2022,09/20/2016,05/29/2006 Varicella 02/24/2009,05/05/1995 Family History Medical History Relation Comments Atrial fibrillation Mother Anxiety disorder Sister Breast cancer Neg Hx Colon polyps Neg Hx Coronary artery disease Neg Hx Relation Status Comments Mother Sister Social History Tobacco Use Types Packs/Day Years Used Date Smoking Tobacco: Never Passive Smoke Exposure: Past Smokeless Tobacco: Never Tobacco Cessation:Counseling Given: No Alcohol Use Standard Drinks/Week Comments Yes 2 [...] PM EST Sexual Orientation Not on file Last Filed Vital Signs Vital Sign Reading Time Taken Comments Blood Pressure 120/78 04/16/2024 11:11 AM EST Pulse 60 04/16/2024 11:11 AM EST Temperature 36.8 ??C (98.2 ??F) 04/16/2024 11:[address] Respiratory Rate 22 02/06/2023 8:00 PM EST Oxygen Saturation 98% 04/16/2024 11:11 AM EST Inhaled Oxygen Concentration - - Weight 88.5 kg (195 lb) 04/16/2024 11:11 AM EST Height 181.6 cm (5' 11.5 ) 12/21/2023 2:00 PM ED T Body Mass Index 26.82 12/21/2023 2:00 PM EDT Plan of Treatment Upcoming Encounters Date Type Department Care Team (Late st Contact Info) Description 05/13/2024 9:15 AM EDT Office Visit [facility] [address] [place] [phone] Antonia Onofre PA-C [address] [address] 05/13/2024 9:30 AM EDT Evaluation [facility] [address] [address] 06/20/2024 8:30 AM EDT Office Visit [facility] [address] [place] [phone] Douglas Rojas MD [address] [place] [address] 06/25/2024 8:40 AM EDT Telemedicine [facility] [address] [address] Trell Serrano MD [address] [phone] 09/12/2024 9:00 AM EDT Office Visit [facility] [address] [place] [address] Trell Serrano MD [address] [place] [address] Health Maintenance Due Date Last Done Comments INFLUENZA VACCINE (#1) 2023 7, 01/19/2016, 01/19/2016, Additional history exists COVID-19 VACCINE ( season) 2023 06/05/2021, 05/04/2020 DEPRESSION SCREENING 09/11/2024 09/12/2023, 04/25/19 24 Adult Td,Tdap Booster 07/10/2032 07/10/2022 , 09/20/2016, 05/29/2006 HIB VACCINES Completed 08/01/1995, 07/1994, 1994, Additional history exists MENINGOCOCCAL VACCINES (ACWY) Completed 04/19/2012, 10/06/2006 HEPATITIS C SCREENING Completed 07/13/2022 HIV ONE-TIME SCREENING (18-65 YEARS) Completed 07/13/2022 SMOKING STATUS SCREENING (Once After 26 Yrs) Completed 04/16/2024 HEPATITIS A VACCINES Aged Out No long er eligible based on patient's age to complete this topic PNEUMOCOCCAL VACCINES (0-49 years) Aged Out No longer eligible based on patient's age to complete this topic Medical Devices Not on file Procedures Procedure Name Priority Date/Time Associated Diagnosis Comments 25-OH VITAMIN D Routine 04/16/2024 11:36 AM EST Screening for metabolic disorder VITAMIN B12 Routine 04/16/2024 11:36 AM EST Screening for metabolic disorder HEPATITIS B SURFACE ANTIBODY Routine 04/16/2024 11:36 AM EST Screening for metabolic disorder CBC Routine 04/16/2024 11:36 AM EST Annual physical exam COMPREHENSIVE METABOLIC PANEL Routine 04/16/2024 11:36 AM EST Annual physical exam LIPID PANEL Routine 04/16/2024 11:36 AM EST Annual physical exam TSH WITH REFLEX Routine 04/16/2024 11:36 AM EST Annual physical exam HEMOGLOBIN A1C Routine 04/16/2024 11:36 AM EST Annual physical exam HEPATITIS C ANTIBODY, QUALITATIVE Routine 07/13/2022 10:54 AM EDT Need for hepatitis C screening test from Last 3 Months or Most Recently Relevant to Health Maintenance Results * (ABNORMAL) Comprehensive metabolic panel (04/16/2024 11:36 AM EST) SODIUM 142 136 - 145 mmol/L [facility] POTASSIUM 4.2 3.6 - 5.1 mmol/L [facility] CHLORIDE 100 98 - 107 mmol/L [facility] CO2 27 22 - 32 mmol/L [facility] BUN 13 6 - 20 mg/dL [facility] CREATININE 1.06 0.6 - 1.3 mg/dL [facility] GLUCOSE 84 65 - 99 mg/dL [facility] ALBUMIN 4.9 3.5 - 5.2 g/dL [facility] TOTAL PROTEIN 7.9 6.1 - 8.1 g/dL [facility] CALCIUM 10.4(H) 8.9 - 10.3 mg/dL [facility] ALKALINE PHOSPHATASE 94 40 - 130 U/L [facility] TOTAL BILIRUBIN 0.9 0.0 - 1.2 mg/dL [facility] AST 29 15 - 41 U/L [facility] ALT 39 10 - 50 U/L [facility] GLOBULIN 3.0 1.9 - 4.1 g/dL [facility] EGFR 97 60 - 128 mL/min/1.7 3m2 [facility] Comment:Estimated glomerular filtration rate calculated using the CKD-EPI refit equation. ANION GAP 15 3 - 17 mmol/L [facility] Blood 04/16/2024 11:3 6 AM EST 04/16/2024 4:07 PM EST Trell Serrano MD LAB BLOOD ORDERABLES Performing Organization Address City/[facility]/ZIP Co de Phone Number [address] [phone] * TSH with reflex (04/16/2024 11:36 AM EST) SCREENING PANEL: TSH 2.03 0.34 - 5.00 uIU/mL [facility] Blood 04/16/2024 11:3 6 AM EST 04/16/2024 4:07 PM EST Trell Serrano MD LAB BLOOD ORDERABLES Performing Organization Address [facility]/ZIP Co de Phone Number [address] [phone] * 25-OH vitamin D (04/16/2024 11:36 AM EST) 25 OH VIT D (TOTAL) 35 20 - 80 ng/mL [facility] Comment: ? REFERENCE RANGE: Optimal: ??25-80 Suboptimal: 20-24 Deficient: ??<20 At risk for toxicity: >80 Blood 04/16/2024 11:3 6 AM EST 04/16/2024 4:07 PM EST Trell Serrano MD LAB BLOOD ORDERABLES Performing Organization Address City/[facility]/ZIP Co de Phone Number [address] [phone] * Hepatitis B surface antibody (04/16/2024 11:36 AM EST) HBV SURFACE AB,QUAL Negative Negative [facility] Blood 04/16/2024 11:3 6 AM EST 04/16/2024 4:07 PM EST Trell Serrano MD LAB BLOOD ORDERABLES [address] [phone] * (ABNORMAL) CBC (04/16/2024 11:36 AM EST) WBC 7.58 4.00 - 11.00 K/uL [facility] RBC 5.27 4.50 - 5.90 M/uL [facility] HGB 16.5 13.5 - 17.5 g/dL [facility] HCT 49.5 41.0 - 53.0 % [facility] PLT 245 150 - 450 K/uL [facility] MCV 93.9 80.0 - 100.0 fL [facility] MCH 31.3(H) 27.0 - 31.0 pg [facility] MCHC 33.3 32.0 - 36.0 g/dL [facility] RDW 12.1 11.5 - 14.5 % [facility] MPV 9.9 8.4 - 12.0 fL [facility] NRBC 0.00 0.00 /100 WBCs [facility] ABSOLUTE NRBC 0.00 0.00 K/uL [facility] Blood 04/16/2024 11:3 6 AM EST 04/16/2024 4:07 PM EST Trell Serrano MD LAB BLOOD ORDERABLES [address] [phone] * Hemoglobin A1c (04/16/2024 11:36 AM EST) HEMOGLOBIN A1C 5.0 4.2 - 5.6 % [facility] Comment:Hemoglobin A1c value s between 5.7 and 6.4% indicate an increased risk for diabetes. Values of 6.5% or greater are diagnostic of diabetes. CALC MEAN BLD GLUC 97 mg/dL [facility] Blood 04/16/2024 11:3 6 AM EST 04/16/2024 4:06 PM EST Trell Serrano MD LAB BLOOD ORDERABLES [place] [id number], [facility] [phone] * Vitamin B12 (04/16/2024 11:36 AM EST) VITAMIN B12 692 251 - 911 pg/mL [facility] Comment: ? Additional Interpretative Information: Deficiency Unlikely: >300 pg/mL Borderline: 200-300 pg/mL Low (c/w Deficiency): <200 pg/mL Blood 04/16/2024 11:3 6 AM EST 04/16/2024 4:07 PM EST Trell Serrano MD LAB BLOOD ORDERABLES Performing Organization Address City/[facility] Co de Phone Number [address] [address], [facility] [phone] * (ABNORMAL) Lipid panel (04/16/2024 11:36 AM EST) HDL 52 >39 mg/dL [facility] CHOLESTEROL 232(H) 0 - 200 mg/dL [facility] TRIGLYCERIDES 136 0 - 150 mg/dL [facility] LDL 153(H) <130 mg/dL [facility] Comment: REFERENCE RANGE: Adult >= 18 years: - Desirable: ??<100 - Above desirable: 100-129 - Borderline high: 130-159 - High: 160-189 - Very High: >=190 Pediatric 2-17 years: - Acceptable: <110 - Borderline high: 110-129 - High: >=130 Reference ranges have not been established for patients that are less than 24 months of age. CARDIAC RISK RATIO 4.5 <5 N [facility] NON-HDL CHOLESTEROL 180 mg/dL [facility] Comment:Reference Range: The non-HDL Cholesterol value should not exceed the desired LDL-C by more than 30 mg/dl. Blood 04/16/2024 11:3 6 AM EST 04/16/2024 4:07 PM EST Trell Serrano MD LAB BLOOD ORDERABLES [address] [address], [facility] [phone] * Hepatitis C antibody, qualitative (07/13/2022 10:54 AM EDT) HCV ANTIBODY Negative Negative [facility] Blood 07/13/2022 10:5 4 AM EDT 07/13/2022 1:42 PM EDT Trell Serrano MD [place] [address], [facility] [phone] from Last 3 Months or Most Recently Relevant to Health Maintenance Advance Directives For more information, please contact: [phone] (9AM - 5PM [employer], Monday-Monday) Documents on File Type Date Recorded Patient Binder And Box Builder Expl anation Healthcare Proxy 01/31/2023 3:10 PM * Full Code (Latest Code Status on File) Date Activated Date Inactivated Comments 01/29/2023 3:44 PM Question Answer Comments Code Status Confirmed With: Patient Code Status Communicated To: Inpatient Attending Care Teams Technical Administrative Assistant Relationship Specialty Start Date End Date Trell Serrano MD [address] [phone] [email or web address] PCP - General Family Medicine 03/07/23 Tona Barksdale CNP [address] [phone] Nurse Practitioner 06/08/23 Douglas Rojas MD [address] [place] [address], [facility] [address] [place] [address] [email or web address] Cardiology 06/08/23 Additional Source Comments The information contained in this document represents components of the legal health record. It is not the complete legal health record.[facility]
--- OUTSIDE RECORDS SUMMARY | 2024-05-07 07:55 | XMS_ITS | Encounter Summary ---
Author Organization [facility] Address [address] [place] [address] [place] [address] Phone Care Team Providers Care Scrap Metal Burner Name Role Phone Trell Serrano MD Primary Care Provider Tona Barksdale [employer] Unavailable [phone] Douglas Rojas MD Unavailable [phone] Reason for Visit * Reason Comments Ear Pain Fluid in ears for mo nths, they pop, a little jaw pain Encounter Details Date Type Department Care Team (Late st Contact Info) Description 04/16/2024 11:20 AM EST Office Visit [facility] 2 [facility] [address] [place] [address] Trell Serrano MD 2 [facility] [address] [place] [address] [email or web address] Anxiety (Primary Dx); Screening for metabolic disorder; Palpitations; Fluid level behind tympanic membrane of both ears Social History Tobacco Use Types Packs/Day Years [...] on file documented as of this encounter Last Filed Vital Signs Vital Sign Reading Time Taken Comments Blood Pressure 120/78 04/16/2024 11:11 AM EST Pulse 60 04/16/2024 11:11 AM EST Temperature 36.8 ??C (98.2 ??F) 04/16/2024 11:[address] Respiratory Rate - - Oxygen Saturation 98% 04/16/2024 11:11 AM EST Inhaled Oxygen Concentration - - Weight 88.5 kg (195 lb) 04/16/2024 11:11 AM EST Height - - Body Mass Index 26.82 12/21/2023 2:00 PM EDT documented in this encounter Progress Notes * Trell Serrano MD - 04/16/2024 11:20 AM EST Reason for visit :Ear Pain (Fluid in ears for months, they pop, a little jaw pain) HPI Follow up Anxiety, atypical chest pain, palpitations. Ears feel full - both sides for few months now. Some mild ringing . No vertigo H/o ear infections in childhood. Has ent scheduled appt in oct 2024 . Feels some Pressure in face .No pnd . No fevers , cough. Anxiety - takes buspar once a day only. Tried zoloft 1 week only and had some sexual side effect. Admits ongoing anxiety symptoms daily. He will be getting labs today and wants to add new labs. Current Outpatient Medications on File Prior to Visit Medication Sig Dispense Refill Last Dispense busPIRone (BUSPAR) 5 MG tablet Take 5 mg by mouth 2 (two) times a day. Unknown (patient-reported) fluticasone propionate (FLONASE) 50 mcg/actuation nasal spray SPRAY 2 SPRAYS BY NASAL ROUTE DAILY 48 mL 0 Unknown (outside pharmacy) sertraline (ZOLOFT) 25 MG tablet TAKE 1 TABLET (25 MG TOTAL) BY MOUTH DAILY. (Patient not taking: Reported on 03/23/2023) 90 tablet 1 Unknown (outside pharmacy) No current facility-administered medications on file prior to visit. Past Medical History: Diagnosis Date Anxiety disorder Past Surgical History: Procedure Laterality Date right knee surgery Right meniscal repair at 15/17 y/ o Social History Social History Narrative Has GF [employer] - does off [employer] Exercise - gym 5-6 days/ week Review of Systems Physical Exam Constitutional: Appearance: Normal appearance. HENT: Right Ear: A middle ear effusion is present. Tympanic membrane is not injected. Left Ear: A middle ear effusion is present. Tympanic membrane is not injected. Ears: Comments: No wax Cardiovascular: Rate and Rhythm: Regular rhythm. Heart sounds: Normal heart sounds. Pulmonary: Effort: No respiratory distress. Breath sounds: Normal breath sounds. Neurological: Mental Status: He is oriented to person, place, and time. No visits with results within 3 Month(s) from this visit. Latest known visit with results is: Hospital Outpatient Visit on 10/17/2023 Component Date Value Ref Range Status Max Predicted Heart Rate 10/17/2023 191 bpm Final Assessment and Plan: Assessment & Plan Screening for metabolic disorder Orders: 25-OH vitamin D; Future Vitamin B12; Future Hepatitis B surface antibody; Future Anxiety Ongoing symptoms. Not controlled. Tried zoloft 1 week only and stopped. Reiterated to try SSRI again, Aim to increase to 50 mg . Zoloft new script sent. F/u 6 weeks . VV . He lives in [facility] now. Restart buspar 5 mg bid. Encouraged to try therapy. Palpitations H/o atypical chest pain. S/p ETT - normal. Had seen cardiology. F/u as planned. Fluid level behind tympanic membrane of both ears chronic. will need ENT eval , will try to get appt scheduled earlier than oct. The above assessment and plan was discussed with the patient in detail and patient understood the assessment and agrees with the plan. Patient had time to ask questions and all concerns and questionswere addressed. The patient was advised to call the office if worsening symptoms or develops any new or worrisome symptoms. Trell Serrano MD documented in this encounter Miscellaneous Notes * Assessment & Plan Note - Trell Serrano MD - 04/16/2024 11:20 AM EST Associated Problem(s): Anxiety Ongoing symptoms. Not controlled. Tried zoloft 1 week only and stopped. Reiterated to try SSRI again, Aim to increase to 50 mg . Zoloft new script sent. F/u 6 weeks . VV . He lives in [facility] now. Restart buspar 5 mg bid. Encouraged to try therapy. * Assessment & Plan Note - Trell Serrano MD - 04/16/2024 11:20 AM EST Associated Problem(s): Palpitations H/o atypical chest pain. S/p ETT - normal. Had seen cardiology. F/u as planned. documented in this encounter Plan of Treatment Upcoming Encounters Date Type Department Care Team (Late st Contact Info) Description 05/13/2024 9:15 AM EDT Office Visit [facility] [address] [place] [address] Antonia Onofre PA-C 104 [facility] 100 [place] [address] 05/13/2024 9:30 AM EDT Evaluation [facility] 104 [facility] 100 [place] [address] 06/20/2024 8:30 AM EDT Office Visit [facility] 22 [facility] 301 [place] [address] Douglas Rojas MD 22 [facility], [address] [place] [address] 06/25/2024 8:40 AM EDT Telemedicine [facility] 2 [facility] [address] [place] [address] Trell Serrano MD [address] [facility] [address] [phone] 09/12/2024 9:00 AM EDT Office Visit [facility] 2 [facility] [address] [place] [address] Trell Serrano MD [address] [phone] documented as of this encounter Results * Hepatitis B surface antibody (04/16/2024 11:36 AM EST) HBV SURFACE AB,QUAL Negative Negative [facility] Blood 04/16/2024 11:3 6 AM EST 04/16/2024 4:07 PM EST Trell Serrano MD LAB BLOOD ORDERABLES [address] [phone] * Vitamin B12 (04/16/2024 11:36 AM EST) VITAMIN B12 692 251 - 911 pg/mL [facility] Comment: ? Additional Interpretative Information: Deficiency Unlikely: >300 pg/mL Borderline: 200-300 pg/mL Low (c/w Deficiency): <200 pg/mL Blood 04/16/2024 11:3 6 AM EST 04/16/2024 4:07 PM EST Trell Serrano MD LAB BLOOD ORDERABLES [address] [phone] * 25-OH vitamin D (04/16/2024 11:36 AM EST) 25 OH VIT D (TOTAL) 35 20 - 80 ng/mL [facility] Comment: ? REFERENCE RANGE: Optimal: ??25-80 Suboptimal: 20-24 Deficient: ??<20 At risk for toxicity: >80 Blood 04/16/2024 11:3 6 AM EST 04/16/2024 4:07 PM EST Trell Serrano MD LAB BLOOD ORDERABLES [address] [phone] documented in this encounter Visit Diagnoses Diagnosis Anxiety- Primary Anxiety state, unspecified Screening for metabolic disorder Palpitations Fluid level behind tympanic membrane of both ears documented in this encounter Additional Health Concerns Assessment Noted Time PHQ-9 Depression Total Score: 5 04/25/19 24 8:35 AM EST PHQ-2 Depression Total Score: 0 09/12/19 24 1:28 PM EDT documented as of this encounter Care Teams Scrap Metal Burner Relationship Specialty Start Date End Date Trell Serrano MD [address] [place] [phone] PCP - General Family Medicine 03/07/23 Tona Barksdale CNP [address] [place] [phone] Nurse Practitioner 06/08/23 Douglas Rojas MD [address] [place] [address], [facility] 301 [place] [address] [email or web address] Cardiology 06/08/23 documented as of this encounter Additional Source Comments The information contained in this document represents components of the legal health record. It is not the complete legal health record.[facility]
--- OUTSIDE RECORDS SUMMARY | 2024-05-07 07:55 | XMS_ITS | Encounter Summary ---
Author Organization [facility] Address [address] [place] [address] Phone Care Team Providers Care Slide Fastener Chain Assembler Name Role Phone Trell Serrano MD Primary Care Provider [phone] Trell Serrano MD Primary Care Provider [phone] Tona Barksdale CNP Unavailable [phone] Douglas Rojas MD Unavailable [phone] Encounter Details Date Type Department Care Team (Late st Contact Info) Description 01/25/2023 Procedure Pass Non-Invasive Cardiology 30 [place] [address] Social History Tobacco Use Types Packs/Day Years [...] Description 05/13/2024 9:15 AM EDT Office Visit [facility] [address] [address] Antonia Onofre PA-C 104 [facility] 100 [place] [address] 05/13/2024 9:30 AM EDT Evaluation [facility] 104 [facility] 100 [place] [address] 06/20/2024 8:30 AM EDT Office Visit [facility] [address] [place] [address] Douglas Rojas MD [address] [address] 06/25/2024 8:40 AM EDT Telemedicine [facility] [address] [address] Trell Serrano MD [address] [employer] [address] [phone] 09/12/2024 9:00 AM EDT Office Visit [facility] [address] [address] Trell Serrano MD [address] [phone] documented as of this encounter Visit Diagnoses Not on filedocumented in this encounter Additional Health Concerns Assessment Noted Time PHQ-2 Depression Total Score: 0 08/13/19 23 1:26 PM EDT documented as of this encounter Care Teams Slide Fastener Chain Assembler Relationship Specialty Start Date End Date Trell Serrano MD [address] [employer] [address] [phone] PCP - General Family Medicine 04/19/22 03/06/23 Trell Serrano MD [address] [phone] PCP - General Family Medicine 03/07/23 Tona Barksdale CNP [address] [phone] Nurse Practitioner 06/08/23 Douglas Rojas MD [address] [place] [address] Cardiology 06/08/23 documented as of this encounter Additional Source Comments The information contained in this document represents components of the legal health record. It is not the complete legal health record.[facility]
--- NOTE | 2024-05-07 07:56 | CA_ITS ---
Transthoracic Echocardiogram Patient (Last, First, Middle): Ry Pino T Gender: Male Date of : 1995 Age: 29 Procedure Date: 05/07/2024 Procedure Type: Transthoracic Echocardiogram Location: OP Height: 182.88 cm Weight: 87.09 kg BSA: 2.09 m2 Heart Rate: bpm BP: 120 / 70 mmHg Truck Loader Overhead Crane: TO Referring MD: Shaggy Maradiaga WIG COMBER Symptoms: R00.2 - Palpitations Study Quality: Adequate ECG Rhythm: Sinus bradycardia Conclusions: - The left ventricular systolic function is low normal. The visually estimated ejection fraction is between 50-55%. The calculated ejection fraction is 55% by biplane method. LVEF by 3D 54%. - No obvious valvular pathology seen on this study. Findings Left Ventricle Normal left ventricular cavity size. The left ventricular systolic function is low normal. The visually estimated ejection fraction is between 50-55%. The calculated ejection fraction is 55% by biplane method. There is no evidence of regional wall motion abnormalities. There is mild septal and mild basal asymmetric hypertrophy. LV peak GLS -18.1%. LVEF by 3D 54%. Right Ventricle Mildly increased right ventricular cavity size. There is normal right ventricular systolic function. Atria The left atrium is mildly dilated. The right atrium is normal in size. Aortic Valve There is a normal trileaflet aortic valve. There is no aortic valve stenosis. There is no aortic valve regurgitation. Mitral Valve The mitral valve appears normal. There is no mitral valve regurgitation. There is no mitral valve stenosis. Pulmonic Valve There is trace to mild pulmonic valve regurgitation. Tricuspid Valve There is trace tricuspid valve regurgitation. There is no evidence of pulmonary hypertension. Great Vessels The asc aorta is normal in size. Venous The inferior vena cava is mildly dilated and collapses greater than 50% with inspiration. Pericardium/Pleural There is no evidence of pericardial effusion. Prior Study Comparison No significant change compared to prior study dated: 01/31/2018. LVEF slightly lower than previously reported; on visual comparison, no major change. Recommendations, Care & Conclusions No obvious valvular pathology seen on this study. Measurements 2D Linear Measurements IVSd: 1.03 0.6-0.9/0.6-1.0 cm LVIDd: 5.18 3.9-5.3/4.2-5.9 cm LVIDd Index: 2.48 2.4-3.2/2.2-3.1 cm/m2 LVIDs: 3.65 2.0-3.6 cm LVPWd: 0.81 0.7-1.1 cm LA Diam: 3.20 2.7-3.8/3.0-4.0 cm LAIDs Index: 1.53 1.5-2.3 cm/m2 LV Mass: 215.23 67-162/88-224 g LV Mass Index: 102.98 43-95/49-115 g/m2 LVOT Diam: 2.70 3.0+(-)1.3 cm 2D Systolic Function EF 4C: 51.30 >55% EF 2C: 55.60 >55% EF BiP: 54.50 >55% Mitral Valve MV Pk E: 0.66 MV PK A: 0.25 MV Decel Time: 148.00 E/A: 2.60 E'Lateral: 17.20 E'Medial: 11.70 E/E' Med: 5.60 E/E' Lat: 3.80 PHT: 57.00 MVA PHT: 3.86 Decel Russell: 3.42 Aortic Valve AoV Pk Manas: 1.12 AoV Mn Manas: 0.77 AoV VTI: 0.27 AoV Pk Grad: 5.00 Aov Mn Grad: 3.00 VANCE Cont.VTI: 4.62 LVOT LVOT Pk Manas: 0.97 LVOT Mn Manas: 0.60 LVOT VTI: 0.22 LVOT Pk Grad: 4.00 LVOT Mn Grad: 2.00 LVOT Diam: 2.70 LVOT Area: 5.73 Diastolic Function MV Pk E: 0.66 MV Pk A: 0.25 E/A: 2.60 E'Medial: 11.70 E/E' Med: 5.60 E' Laterial: 17.20 E/E' Lat: 3.80 Right Ventricle TAPSE (mm): 20.40 TVS' Manas: 13.60 Tricuspid Valve RA Press: 8.00 Great Vessels Aorta Sinus of Valsalva: 3.71 2.0-3.5 cm Ao Asc: 3.00 2.1-3.4 cm Ao Arch: 2.90 Updated in Other Vendor System with Status of Final Javon Rees MD electronically signed on 05/07/2024 10:52:18 AM with status of Final
--- NOTE | 2024-05-07 07:56 | CA_ITS ---
Acquisition Time: 2024-05-07 09:25:28 Total Exercise Time: 00:12:46 Test Indications: CP,Abnormal ECG BRADYCARDIA/PVC'S Medications: SERTRALINE Protocol: PAULO Max HR: 162 BPM 85% of Pred: 190 BPM Max BP: 168/80 mmHG Max Work Load: 14.8 METS Exercise Stress Test with exercise 12 mins 46 secs of Paulo Protocol, achieving 85% MPHR, with rerpots of dizziness at baseline that got worse with exercise, no chest discomfort, without any arrythmias, with normotensive response to exercise. Without EKG changes meeting criteria for ischemia. In recovery, dizziness returned to baseline that pt states is constant. Test reviewed with Dr. Rees. Referred By: Shaggy Maradiaga Electronically Signed By: Shaggy Maradiaga
--- OUTSIDE RECORDS SUMMARY | 2024-05-07 07:56 | XMS_ITS | Encounter Summary ---
Author Organization [facility] Address [address] [place] [address] Phone Care Team Providers Care Kettle Room Helper Name Role Phone Trell Serrano MD Primary Care Provider [phone] Trell Serrano MD Primary Care Provider + [phone] Tona Barksdale CNP Unavailable [phone] Douglas Rojas MD Unavailable [phone] Encounter Details Date Type Department Care Team (Late st Contact Info) Description 09/02/2022 Ancillary Orders [facility] [address] [place] [address] Giselle Flor MD [email or web address] Soft tissue mass Social History Tobacco Use Types Packs/Day Years [...] Description 05/13/2024 9:15 AM EDT Office Visit [facility] 104 [facility] 100 [place] [address] Antonia Onofre PA-C 104 [facility] 100 [place] [address] 05/13/2024 9:30 AM EDT Evaluation [facility] 104 [facility] 100 [place] [address] 06/20/2024 8:30 AM EDT Office Visit [facility] [address] [place] [address] Douglas Rojas MD [address] [address] 06/25/2024 8:40 AM EDT Telemedicine [facility] 2 [address] [employer] [address] [address] Trell Serrano MD [address] [employer] [address] [phone] 09/12/2024 9:00 AM EDT Office Visit [facility] [address] [address] Trell Serrano MD [address] [place] [phone] documented as of this encounter Results * US Inguinal (Right) (08/26/2022 5:19 PM EDT) Anatomical Region Laterality Modality Chest Ultrasound Impressions 08/26/2022 6:33 PM EDT 1. ??The palpable abnormality likely represents an area of cellulitis and reactive adenopathy. An inflamed skin appendage could also have this appearance. 2. ??No organized abscess or pathologic mass or adenopathy. RECOMMENDATION: Recommend clinical follow-up. Narrative 08/26/2022 6:33 PM EDT US INGUINAL (BILATERAL) TECHNIQUE: Ultrasound of the right inguinal region at the site of the patient's palpable lump.. COMPARISON: None. FINDINGS: The palpable abnormality corresponds to a hypoechoic linear area originating from the skin and extending into the subcutaneous fat of the right groin. There is an adjacent lymph node measuring 12 x 9 mm in the subcutaneous fat of the right inguinal region. Giselle Flor MD IMG US EXTREMITY documented in this encounter Visit Diagnoses Diagnosis Soft tissue mass Disorders of soft tissue, unspecified Soft tissue mass Disorders of soft tissue, unspecified documented in this encounter Additional Health Concerns Assessment Noted Time PHQ-2 Depression Total Score: 0 08/13/19 1:26 PM EDT documented as of this encounter Care Teams Kettle Room Helper Relationship Specialty Start Date End Date Trell Serrano MD [address] [employer] [address] [phone] [email or web address] PCP - General Family Medicine 04/19/22 03/06/23 Trell Serrano MD [address] [phone] [email or web address] PCP - General Family Medicine 03/07/23 Tona Barksdale CNP [address] [employer] [address] [phone] Nurse Practitioner 06/08/23 Douglas Rojas MD [address] [place] [address], [facility] 301 [place] [address] Cardiology 4/11/24 documented as of this encounter Additional Source Comments The information contained in this document represents components of the legal health record. It is not the complete legal health record.[facility]
--- OUTSIDE RECORDS SUMMARY | 2024-05-07 07:56 | XMS_ITS | Encounter Summary ---
Author Organization [facility] Address [address] [place] [address] Phone Care Team Providers Care Poultry Inseminator Name Role Phone Trell Serrano MD Primary Care Provider [phone] Trell Serrano MD Primary Care Provider + [phone] Tona Barksdale CNP Unavailable [phone] Douglas Rojas MD Unavailable [phone] Encounter Details Date Type Department Care Team (Late st Contact Info) Description 08/26/2022 Ancillary Orders [facility] [address] [place] [address] Giselle Flor MD [email or web address] Soft tissue mass Social History Tobacco Use [...] Description 05/13/2024 9:15 AM EDT Office Visit [facility] 104 [facility] 100 [place] [address] Antonia Onofre PA-C 104 [facility] 100 [place] [address] 05/13/2024 9:30 AM EDT Evaluation [facility] 104 [facility] 100 [place] [address] 06/20/2024 8:30 AM EDT Office Visit [facility] [address] [address] Douglas Rojas MD [address] [address] 06/25/2024 8:40 AM EDT Telemedicine [facility] [address] [employer] [address] [address] Trell Serrano MD [address] [employer] [address] [phone] 09/12/2024 9:00 AM EDT Office Visit [facility] [address] [employer] [address] [address] Trell Serrano MD [address] [employer] [address] [phone] documented as of this encounter Visit Diagnoses Diagnosis Soft tissue mass Disorders of soft tissue, unspecified documented in this encounter Additional Health Concerns Assessment Noted Time PHQ-2 Depression Total Score: 0 08/13/19 23 1:26 PM EDT documented as of this encounter Care Teams Poultry Inseminator Relationship Specialty Start Date End Date Trell Serrano MD 2 [facility] 180 [place] [phone] [email or web address] PCP - General Family Medicine 04/19/22 03/06/23 Trell Serrano MD [address] [phone] [email or web address] PCP - General Family Medicine 03/07/23 Tona Barksdale CNP [address] [phone] [email or web address] Nurse Practitioner 06/08/23 Douglas Rojas MD [address] [place] [address] [email or web address] Cardiology 06/08/23 documented as of this encounter Additional Source Comments The information contained in this document represents components of the legal health record. It is not the complete legal health record.[facility]
--- OUTSIDE RECORDS SUMMARY | 2024-05-07 07:56 | XMS_ITS | Encounter Summary ---
Author Organization [facility] Address [address] [place] [address] [place] [address] Phone Care Team Providers Care Scientific Glass Blower Name Role Phone Trell Serrano MD Primary Care Provider Tona Barksdale ONSITE CASE MANAGER Unavailable [phone] Douglas Rojas MD Unavailable [phone] Reason for Visit * Reason Onset Date Comments Labs 04/25/2024 Encounter Details Date Type Department Care Team (Late st Contact Info) Description 04/25/2024 Telephone [facility] [address] [place] [address] Trell Serrano MD [address] [place] [address] [email or web address] Social History Tobacco Use Types Packs/Day Years [...] on file documented as of this encounter Progress Notes * Freida Handley - 04/25/2024 8:35 AM EST Images from the original note were not included. Please advise if PT needs appt or if labs can be added. PT was here on 04/16/24 Appointment Request (Newest Message First) Ry Zhou [facility] Nancy Fd10 hours ago (9:39 PM) AG Dc Freida, is it possible to just have Dr. Serrano order the hormone labs? I don't think I need another appointment, no new symptoms, just forgot to ask when I was there the other day. The drive is [address] for me. Feel free to call me if need be. Thanks! You Ry Hancockk2 days ago DANIEL Raza. I have scheduled your follow up visit to discuss request for lab work with Dr. Serrano on 05/01/24 at1:40 pm with arrival time of 1:25 pm. Eloisa Youngblood routed conversation to You2 days ago Ry [facility] Napoleon Fd2 days ago AG Appointment Request From: Ry Pino With Provider: Trell Serrano MD [[facility]] Preferred Date Range: Any Preferred Times: Any Time Reason for visit: Follow-Up Visit Comments: Hi - I was looking to get one more blood test ordered to check all hormone levels including thyroid. Forgot to bring this up when I was at my appointment last week. Thank you! documented in this encounter Plan of Treatment Upcoming Encounters Date Type Department Care Team (Late st Contact Info) Description 05/13/2024 9:15 AM EDT Office Visit [facility] [address] [facility] [address] [place] [address] Antonia Onofre PA-C 104 [facility] 100 [place] [address] 05/13/2024 9:30 AM EDT Evaluation [facility] [address] [address] 06/20/2024 8:30 AM EDT Office Visit [facility] [address] [place] [address] Douglas Rojas MD [address] [place] [address] 06/25/2024 8:40 AM EDT Telemedicine [facility] [address] [address] Trell Serrano MD [address] [phone] 09/12/2024 9:00 AM EDT Office Visit [facility] [address] [address] Trell Serrano MD [address] [phone] documented as of this encounter Visit Diagnoses Not on filedocumented in this encounter Additional Health Concerns Assessment Noted Time PHQ-9 Depression Total Score: 5 04/25/19 24 8:35 AM EST PHQ-2 Depression Total Score: 0 09/12/19 24 1:28 PM EDT documented as of this encounter Care Teams Scientific Glass Blower Relationship Specialty Start Date End Date Trell Serrano MD [address] [facility] [address] [place] [phone] [email or web address] PCP - General Family Medicine 03/07/23 Tona Barksdale CNP [address] [place] [address] [email or web address] Nurse Practitioner 06/08/23 Douglas Rojas MD [address] [place] [address], [address] [address] [email or web address] Cardiology 06/08/23 documented as of this encounter Additional Source Comments The information contained in this document represents components of the legal health record. It is not the complete legal health record.[facility]
--- OUTSIDE RECORDS SUMMARY | 2024-05-07 07:56 | XMS_ITS | Encounter Summary ---
Author Organization [facility] Address [address] [place] [address] [place] [address] Phone Care Team Providers Care Breaker Layer Name Role Phone Trell Serrano MD Primary Care Provider [phone] Trell Serrano MD Primary Care Provider [phone] Tona Barksdale CNP Unavailable [phone] Douglas Rojas MD Unavailable [phone] Encounter Details Date Type Department Care Team (Late st Contact Info) Description 08/26/2022 Ancillary Orders [facility] [address] [place] [address] Giselle Flor MD [email or web address] Social History Tobacco Use Types Packs/Day Years [...] Description 05/13/2024 9:15 AM EDT Office Visit [facility] [address] [address] Antonia Onofre PA-C [address] [address] 05/13/2024 9:30 AM EDT Evaluation [facility] [address] [address] 06/20/2024 8:30 AM EDT Office Visit [facility] [address] [address] Douglas Rojas MD [address] [place] [address] 06/25/2024 8:40 AM EDT Telemedicine [facility] [address] [place] [address] [address] [address] Trell Serrano MD [address] [address] 09/12/2024 9:00 AM EDT Office Visit [facility] [address] [place] [address] [address] [address] Trell Serrano MD [address] [place] [address] [address] documented as of this encounter Visit Diagnoses Not on filedocumented in this encounter Additional Health Concerns Assessment Noted Time PHQ-2 Depression Total Score: 0 08/13/19 23 1:26 PM EDT documented as of this encounter Care Teams Breaker Layer Relationship Specialty Start Date End Date Trell Serrano MD [address] [address] [email or web address] PCP - General Family Medicine 04/19/22 03/06/23 Trell Serrano MD 2 [facility] [address] [place] [address] [email or web address] PCP - General Family Medicine 03/07/23 Tona Barksdale CNP 2 [facility] [address] [place] [address] [email or web address] Nurse Practitioner 06/08/23 Douglas Rojas MD [address] [place] [address] [address] [place] [address] [email or web address] Cardiology 06/08/23 documented as of this encounter Additional Source Comments The information contained in this document represents components of the legal health record. It is not the complete legal health record.[facility]
[2024-05-07 12:03] LABS: Mean Corpuscular HGB Conc 34.9 g/dl (31.0-36.0); Mean Corpuscular Hemoglobin 31.6 pg (27.0-33.0); Mean Corpuscular Volume 90.5 fL (80.0-98.0); Mean Platelet Volume 10.2 fL (9.4-12.4); Platelet Count 215 X10*3/uL (160-400); Red Blood Count 4.75 X10*6/uL (4.60-5.80); Red Cell Distribution Width 11.8 % (11.0-16.0); White Blood Count 4.6 X10*3/uL (4.8-10.8)
[2024-05-07 12:51] LABS: Anion Gap 13 (12-20); Blood Urea Nitrogen 12 mg/dL (9-16); Calcium 10.1 mg/dL (8.4-10.2); Carbon Dioxide 28 mmol/L (22-29); Chloride 107 mmol/L (96-108); Estimated Glomerular Filt Rate > 60; Glucose Random 84 mg/dL (60-115); Potassium 4.6 mmol/L (3.3-5.1); Sodium 143 mmol/L (135-145)
[2024-05-07 13:11] LABS: TSH reflex Free T4 0.97 uIU/mL (0.32-4.0)
== END ==
LOC: HO.CARD 07:52
DX: R00.2 Palpitations (principal); R42 Dizziness and giddiness
CPT/HCPCS: 36415; 80048; 84443; 85027; 93017; 93242; 93306

== ENCOUNTER → 2024-05-07 07:56 | Outpatient (BNV) | payer BC, SELFPAY | PROVIDERS: Visit Provider Internal Medicine | DX: I42.2 Other hypertrophic cardiomyopathy (principal); I37.1 Nonrheumatic pulmonary valve insufficiency; R94.31 Abnormal electrocardiogram [ECG] [EKG]; R42 Dizziness and giddiness | CPT/HCPCS: 76376; 93016; 93018; 93350; 93356 ==

== ENCOUNTER 2024-06-07 14:04 | Outpatient (AMB) | payer BC, SELFPAY ==
--- NOTE | 2024-06-07 14:16 | MHC.OFFVIS ---
Vital Signs 06/07/24 14:20 Height 6 ft Weight 190 lb 0.615 oz BMI 25.8 BP 120/70 Blood Pressure Location Lt brachial Position Sitting Pulse 56 Pulse Source Pulse Oximeter Intake Visit Reasons: pt request results echo stress tilt holter Intake Note: f/up stress echo/tilt/ holter Core Rescuer Required: No Accompanied by: Self / Same As Patient Allergies No Known Allergies Allergy (Unverified 11/14/19 16:33) Medication List - Last Reconciled 06/07/24 by Shaggy Maradiaga NP sertraline 50 mg PO DAILY HPI Comments Details: This is a 29-year-old male patient presenting for a follow-up visit. Patient has had a history of recurrent palpitations and dizziness which has been on ongoing. He has undergone multiple Holter monitors including a comprehensive cardiac workup at [facility] with a 30 day event monitor, echocardiogram, stress test of which showed bradycardia and occasional PVCs. Due to his persistent symptoms and complaints of chest pain, patient recently underwent another Holter monitor, stress test, tilt-table test. Today, the patient reports continued palpitations and dizziness but no add that he has also been experiencing neck pain, headaches, blurry vision and occasional tingling in his tongue and down his arms during these episodes. However, he denies any more chest pain, shortness of breath, orthopnea, PND, leg edema, presyncope, or syncope. The patient also reports reducing his alcohol intake to occasional use due to these symptoms. [facility] Family History Mother A-fib Maternal Grandmother A-fib Social History Alcohol intake: current Alcohol intake frequency: a few times a week Patient Tobacco Use Status: Never used Tobacco Review of Systems Const Denies chills, Denies fatigue, Denies fever(s), Denies frequent falls, Denies weakness, Denies weight gain and Denies weight loss ENT Denies dizziness Card Denies chest pain, Denies leg edema, Denies lightheadedness, Denies palpitations, Denies dyspnea and Denies dyspnea on exertion Resp Denies cough, Denies dyspnea and Denies dyspnea on exertion GI Denies hematochezia Musc Denies abnormal gait, Denies muscle weakness, Denies numbness, Denies radiating pain into limb and Denies tingling Neuro Denies abnormal gait, Denies dizziness, Denies frequent falls, Denies numbness, Denies tingling and Denies weakness Endo Denies fatigue and Denies palpitations Physical Exam Vital Signs: Last Vital Signs Pulse 56 06/07/24 14:20 BP 120/70 06/07/24 14:20 BMI result Body Mass Index 25.8 Const General: cooperative, healthy appearing, comfortable and no acute distress Orientation/consciousness: patient oriented x3 HEENT Head: Yes normal to inspection Neck Neck: Yes normal visual inspection, Yes trachea midline and Yes supple Chest Chest palpation & inspection: normal inspection of the chest Resp Effort & Inspection: normal respiratory effort Auscultation: clear to auscultation bilaterally, no crackles, no rales, no rhonchi and no wheezes Cardio Jugular venous distension: no JVD Palpation: normal PMI Rate: bradycardic Rhythm: regular rhythm Heart sounds: S1 normal heart sound present, S2 normal heart sound present, no click, no gallops, no murmurs and no rubs Peripheral pulses: Peripheral pulses 2+ throughout GI Inspection: Yes normal to inspection Palpation (GI): Soft to palpation Auscultation: normal bowel sounds Skin General skin exam: no rashes or lesions noted Neuro General: patient oriented x3 Extrem General: Yes normal to inspection, No no pedal edema and No calf tenderness Psych Appearance: grossly normal Mental Status: mental status grossly normal Speech and movement: Normal speech and movement present Assessment & Plan Assessment & Plan (1) Dizziness: Code(s): R42 - Dizziness and giddiness Category: Medical (2) Sinus bradycardia: Code(s): R00.1 - Bradycardia, unspecified Category: Medical (3) Heart palpitations: Code(s): R00.2 - Palpitations Category: Medical Plan 05/07/2024-patient underwent a treadmill stress test with exercise of 12 minutes 40 seconds achieving 85% MPHR without any EKG changes. 05/07/2024-patient's echo study showed low-normal EF between 50-55% with no wall motion or valvular abnormalities. 05/07/2024-patient underwent another Holter monitor for 7 days that showed frequent sinus bradycardia 68% of the time with 1 pause of 2.7 seconds during sleep hours, and occasional PACs. Due to his symptomatic bradycardia and the pause seen on the Holter, we have referred patient out to an EP for a pacemaker discussion. He is waiting to hear back from the EP office for an appointment. 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 Given his orthostatic response, recommended trying midodrine for his symptoms. But at this time, the patient would like to hold off on starting a new medication until he sees a Neurology to see if his symptoms of facial tingling, blurry vision, and headache. We will refer him to Neurology for this matter. Advised increasing fluid intake and salt intake. Advised regular exercise and avoiding stimulants. Patient will follow-up with us in a year, sooner if needed. In the interim, patient will call us with any concerns or change in symptoms. This note was generated using voice recognition software. While every effort has been made to ensure accuracy and proper immersion metalcleaner, there may be occasional errors that could affect the content or meaning of the described symptoms. Orders: Referrals Neurology Referral R42 - Dizziness and giddiness Coding Level of Care Code Est Pt Level 4 (36881) Complex EM visit Add On G2211 Diagnoses Dizziness R42 Sinus bradycardia R00.1 Heart palpitations R00.2 Time Spent (min) 31 Comment Time spent in reviewing the chart, test results, assessment, counseling and documentation.
[2024-06-07 14:20] VITALS: BP 120/70; PULSE 56; BMI 25.8
--- OUTSIDE RECORDS SUMMARY | 2024-06-07 14:27 | XMS_ITS | Clinical Summary ---
Author Organization [facility] Address [address] [place] [address] Phone Care Team Providers Care Clinical Research Management Associate Name Role Phone Abraham Loredo MD Primary Care Provider [phone] Encounters Date Type Department Care Team Description 06/04/2024 2:12 PM EDT - 06/04/2024 11:59 PM EDT Hospital Encounter [facility] Xray [address] [place] [address] Palpitations Discharge Disposition: Home or Self Care from Last 3 Months Surgical History Surgery Date Site/Laterality Comments KNEE ARTHROSCOPY W/ MENISCAL REPAIR 2011 PROCEDURE: VA ARTHROSCOPY KNEE W/MENISCUS RPR MEDIAL/LATERAL; COMMENT: R [...] tear; COMMENT: lateral meniscus extensive tearing Asthma sees Kyler DX:Asthma; COMME NT: on Asmanex 04/10 Family [...] Value Date Recorded Sex Assigned at Male 05/31/2024 10:32 AM EDT Legal Sex Male 6:03 PM EST Gender Identity Male 05/31/2024 10:32 AM EDT Sexual Orientation Straight 05/31/2024 10 :32 AM EDT Obstetrics History Plan of Treatment Health Maintenance Due Date Last Done Comments Pneumococcal Vaccine: Pediatrics (0 to 5 Years) and At-Risk Patients (6 to 64 Years) (1 of 2 - PCV) 2013 COVID-19 Vaccine (3 - season) 2023 06/05/2021, 05/04/2020 HIV Screening 04/19/2024 Social Influencers of Health Screening 04/19/2024 Depression Screening 04/25/2024 04/25/2023 Influenza Vaccine (Season Ended) 2024 01/03/2017, 01/19/2016, 03/02/2015, Additional history exists Cholesterol Screening (Lipid Panel) 04/16/2029 04/16/2024 DTaP,Tdap,and Td Vaccines (9 - Td or Tdap) 07/10/2032 07/10/2022, 09/20/2016, 05/29/2006, Additional history exists Hepatitis B Vaccines Completed 01/31/1995, 1994, 1994 HIB Vaccines Completed 08/01/1995, 05/1995, 1994, Additional history exists IPV Vaccines Completed 05/03/1999, 05/1995, 1994, Additional history exists MMR Vaccines Completed 05/03/1999, 08/01/1995 Varicella Vaccines Completed 02/24/2009, 05/05/1995 Meningococcal ACWY Vaccine Completed 04/19/2012, Hepatitis C Screening Completed 07/13/2022 HPV Vaccines Aged Out No longer eligi ble based on patient's age to complete this topic Hepatitis A Vaccines Aged Out No long er eligible based on patient's age to complete this topic Meningococcal B Vaccine Aged Out No l onger eligible based on patient's age to complete this topic RSV Immunization Patients Under 20 months Aged Out No longer eligible based on patient's age to complete this topic Procedures Procedure Name Priority Date/Time Associated Diagnosis Comments TILT TABLE Routine 06/04/2024 2:36 PM EDT Palpitations from Last 3 Months Results * Tilt table (06/04/2024 2:36 PM EDT) Anatomical Region Laterality Modality Radiographic Pura ging Narrative 06/04/2024 3:18 PM EDT Pt given information on Vasovagal Syncope. ??He has high vagal tone with resting bradycardia but appropriate HR and BP response to activity. Reassurance given regarding bradycardia as this causes him anxiety. Tilt Table The patient was brought to lab in fasting state. Patient lied supine for 5 minutes for equilibrium. Baseline ECG showed sinus bradycardia. Baseline supine minimum BP: 116/78 mmHg Baseline supine minimum HR: 35 bpm Patient tilted to 70 degrees. Tilt maintained for 1 minutes. Minimum BP during tilt: 76/40 mmHg Maximum BP during tilt: 128/80 mmHg Minimum heart rate during tilt: 31 bpm Maximum heart rate during tilt: 78 bpm Rhythm during tilt: SB then junctional There was a clear orthostatic response noted. Patient experienced a physiologic HR increase with tilt. Symptoms seen on tilt include: dizziness and near syncope. Premonitory symptoms were reproduced. Syncope/presyncope symptoms were reproduced. Patient experienced sudden onset of concomitant bradycardia and hypotension. Conclusion: Abnormal tilt test with findings consistant with neurocardiogenic physiology. Javon Rees MD [facility] PRO CEDURES Final Result from Last 3 Months Insurance [facility] ([facility]) Care Teams Clinical Research Management Associate Relationship Specialty Start Date End Date Abraham Loredo MD [facility] [address] [place] [address] [address] [place] [address] PCP - General Internal Medicine 05/31/24
--- OUTSIDE RECORDS SUMMARY | 2024-06-07 14:27 | XMS_ITS | Encounter Summary ---
Author Organization [facility] Address [address] [place] [address] Care Team Providers Care Wax Pourer Name Role Phone Abraham Loredo MD Primary Care Provider [phone] Reason for Referral * Cardiac Stress Testing (Routine) - Pending Review Specialty Diagnoses / Procedures Referred By Santa akins Referred To Contact Cardiology Diagnoses Palpitations Procedures Tilt table Javon Rees MD [address] [facility] [place] [address] Phone: tel: fax: [facility] Referral ID Status Reason Start Date Expiration Date V isits Requested Visits Authorized [id number] Pending Review 04/19/2024 04/19/2025 1 1 Reason for Visit * Cardiac Stress Testing (Routine) - Pending Review Specialty Diagnoses / Procedures Referred By Santa akins Referred To Contact Cardiology Diagnoses Palpitations Procedures Tilt table Javon Rees MD [address] [facility] [place] [address] Phone: tel: fax: [facility] Referral ID Status Reason Start Date Expiration Date V isits Requested Visits Authorized [id number] Pending Review 04/19/2024 04/19/2025 1 1 Encounter Details Date Type Department Care Team (Latest Contact Info) Description 06/04/2024 2:12 PM EDT - 06/04/2024 11:59 PM EDT Hospital Encounter [facility] Xray [address] [place] [address] Palpitations Discharge Disposition: Home or Self Care Social History Tobacco Use Types Packs/Day Years [...] Orientation Straight 05/31/2024 10 :32 AM EDT documented as of this encounter Discharge Disposition Disposition Code Departure Means Destination Home or Self Care documented in this encounter Plan of Treatment Not on file documented as of this encounter Procedures Procedure Name Priority Date/Time Associated Diagnosis Comments TILT TABLE Routine 06/04/2024 2:36 PM EDT Palpitations documented in this encounter Results * Tilt table (06/04/2024 2:36 PM [...] test with findings consistant with neurocardiogenic physiology. us Javon Rees MD [facility] PRO CEDURES Final Result documented in this encounter Visit Diagnoses Diagnosis Palpitations documented in this encounter Care Teams Wax Pourer Relationship Specialty Start Date End Date Abraham Loredo MD [facility] [address] [place] [address] [address] [place] [address] PCP - General Internal Medicine 05/31/24 documented as of this encounter
== END 2024-06-07 14:45 | disposition home or self-care (01) ==
DX: R42 Dizziness and giddiness (principal); R00.1 Bradycardia, unspecified; R00.2 Palpitations
CPT/HCPCS: 99214

== ENCOUNTER → 2024-06-07 14:04 | Outpatient (BNVA) | payer BC, SELFPAY | DX: Z13.89 Encounter for screening for other disorder (principal) ==

== ENCOUNTER 2024-11-13 13:16 | Outpatient (AMB) | payer BC, SELFPAY ==
--- NOTE | 2024-11-13 13:20 | MHC.OFFVIS ---
Vital Signs 11/13/24 13:21 Height 6 ft Weight 201 lb 4 oz BMI 27.3 BP 112/70 Blood Pressure Location Rt brachial Position Sitting Pulse 59 Pulse Source Pulse Oximeter Pulse Oximetry (%) 97 Oxygen Delivery Method Room Air Intake Visit Reasons: INP-Dizziness and giddiness Intake Note: Dizziness and Giddiness Senior Web Engineer Required: No Accompanied by: Self / Same As Patient Allergies No Known Allergies Allergy (Verified 11/13/24 13:21) Medication List - Last Reconciled 11/13/24 by Jennifer Bartlett MD amitriptyline 10 mg PO BEDTIME HPI Comments Details: 29y/o male comes for neurological evaluation . 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 He had numbness in neck and rios UE - CT showed dissection .He was on Plavix for 3 weeks and on aspirin for 3 mths. He sees neurovascular specialist at [facility]. For his dizziness ( started 18 mths ago ) he had extensive cardiac evaluation . His first episode was palpitations and he thought it was a panic attack . He describes the dizziness as his body moving . He denies syncope has some lightheadedness.He has on and off tinnitus . he feels his ears are full , was seen by ENT but no diagnosis. The dizziness is worse when he drives, moves his head, when he bends and has headaches. He describes the headaches are band in the forehead. No nausea. He has light sensitivity . He has visual tracking issues.No recent head injury . He has headaches almost everyday - takes ibuprofen on and off tylenol .He sees flashes of light during headaches. He also reports excessive daytime fatigue. He does not sleep well. He snores and has excessive daytime sleepiness. [facility] Medical History (Updated 11/13/24 @ 13:57 by Jennifer Bartlett MD) Chronic headaches Hypersomnia Snoring Family History Mother A-fib Maternal Grandmother A-fib Social History Alcohol intake: current Alcohol intake frequency: a few times a week Patient Tobacco Use Status: Never used Tobacco Physical Exam Vital Signs: Last Vital Signs Pulse 59 11/13/24 13:21 BP 112/70 11/13/24 13:21 Pulse Ox 97 11/13/24 13:21 Oxygen Delivery Method Room Air 11/13/24 13:21 BMI result Body Mass Index 27.3 Const General: cooperative, healthy appearing, comfortable, no acute distress and anxious Nutritional Appearance: average body habitus Orientation/consciousness: patient oriented x3 Eyes Pupils: Equal, round and reactive pupils present Neck Neck: Yes no meningeal signs Neuro General: patient oriented x3, gait normal, tone normal, moves all extremities, no meningeal signs and no focal motor deficits Cranial nerves: Yes Facial sensation intact/muscles of mastication intact, Yes Equal, round and reactive pupils present, Yes Bilaterally intact EOM present, Yes Nystagmus not present, Yes Normal facial strength present, Yes Midline tongue present, Yes Symmetric palate elevation present and Yes Ability to bilaterally elevate shoulders present Cognition (Neuro): normal cognition Gait exam (Neuro): Normal gait present Motor exam (neuro): 5/5 motor strength present throughout Deep tendon reflexes (DTR's): Right triceps reflex intensity grade: 2+, Left triceps reflex intensity grade: 2+, Rt Biceps (C5, C6): 2+, Left biceps reflex intensity grade: 2+, Right brachioradialis reflex intensity grade: 2+, Left brachioradialis reflex intensity grade: 2+, Right patellar reflex intensity grade: 2+ and Left patellar reflex intensity grade: 2+ Coordination: [id number] test normal Assessment & Plan Assessment & Plan (1) Dizziness: Comment: ? vertgo BPV Vetsibular migraine Code(s): R42 - Dizziness and giddiness Category: Medical (2) Snoring: Code(s): R06.83 - Snoring Category: Medical (3) Hypersomnia: Code(s): G47.10 - Hypersomnia, unspecified Category: Medical (4) Chronic headaches: Comment: cervicogenic , vestibular migraine Code(s): R51.9 - Headache, unspecified; G89.29 - Other chronic pain Category: Medical Plan MRI MRA report from [facility] for review I will trial him on amitriptyline 10mg qhs Home sleep test to r/o sleep apnea. Orders: Orders RT home sleep study Today G47.10 - Hypersomnia, unspecified, R06.83 - Snoring Medications: New amitriptyline 10 mg PO BEDTIME 30 tabs 6RF Coding Level of Care Code New Pt Level 4 (25117) Complex EM visit Add On G2211 Diagnoses Dizziness R42 Snoring R06.83 Hypersomnia G47.10 Chronic headaches R51.9; G89.29
[2024-11-13 13:21] VITALS: BP 112/70; PULSE 59; O2SAT 97; BMI 27.3
--- OUTSIDE RECORDS SUMMARY | 2024-11-13 17:00 | XMS_ITS | Encounter Summary ---
Author Organization [facility] Address [address] [facility] [address] [place] [address] Phone Care Team Providers Care Deburring Machine Operator Name Role Phone Trell Serrano MD Primary Care Provider [phone] Trell Serrano MD Primary Care Provider [phone] Tona Barksdale CNP Unavailable [phone] Douglas Rojas MD Unavailable [phone] Encounter Details Date Type Department Care Team (Late st Contact Info) Description 09/02/2022 Ancillary Orders [facility] [address] [place] [address] Giselle Flor MD [email or web address] Soft tissue mass Social History Tobacco Use [...] Assigned at Male 01/18/2023 11:43 PM EST Legal Sex Male 11:02 AM EST Gender Identity Male 01/18/2023 11:43 PM EST Sexual Orientation Not on file documented as of this encounter Plan of Treatment Upcoming Encounters Date Type Department Care Team (Late st Contact Info) Description 11/28/2024 11:15 AM EDT Office Visit [facility] Division of Community Surgery [address] [place] [address] Jeanette Mueller, HEALTHCARE RECRUITER [address] [place] [address] [email or web address] 03/28/2025 1:30 PM EST Office Visit [facility] Neurology [address] [place] [address] Edmar Severino MD 22 [facility], 2nd [place] [address] [email or web address] 05/12/2025 9:00 AM EDT Office Visit [facility] Department of Neurology [address] [facility], 8th Floor, [address] [place] [address] Ana Luisa Guerrier MD 60 [place] [address] [email or web address] documented as of this encounter Results * US Inguinal (Right) (08/26/2022 5:19 PM EDT) Anatomical Region Laterality Modality Chest Ultrasound Impressions 08/26/2022 6:33 PM EDT 1. The palpable abnormality likely represents an area of cellulitis and reactive adenopathy. An inflamed skin appendage could also have this appearance. 2. No organized abscess or pathologic mass or adenopathy. [...] the right inguinal region. Giselle Flor MD [facility] Edited Result - Final documented in this encounter Visit Diagnoses Diagnosis Soft tissue mass Disorders of soft tissue, unspecified Soft tissue mass Disorders of soft tissue, unspecified documented in this encounter Additional Health Concerns Assessment Noted Time PHQ-2 Depression Total Score: 0 08/13/19 1:26 PM EDT documented as of this encounter Care Teams Deburring Machine Operator Relationship Specialty Start Date End Date Trell Serrano MD 2 [employer] [address] [address] PCP - General Family Medicine 04/19/22 03/06/23 Trell Serrano MD 2 [employer] [address] [address] PCP - General Family Medicine 03/07/23 Tona Barksdale CNP [address] [employer] [address] [address] Nurse Practitioner 06/08/23 Douglas Rojas MD [address] [place] [address], [address] [address] Cardiology 06/08/23 documented as of this encounter Additional Source Comments The information contained in this document represents components of the legal health record. It is not the complete legal health record.[facility]
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
--- OUTSIDE RECORDS SUMMARY | 2024-11-13 17:00 | XMS_ITS | Encounter Summary ---
Author Organization [facility] Address [address] [facility] [address] [place] [address] Phone Care Team Providers Care Coin Machine Service Repairer Name Role Phone Trell Serrano MD Primary Care Provider [phone] Trell Serrano MD Primary Care Provider [phone] Tona Barksdale CNP Unavailable [phone] Douglas Rojas MD Unavailable [phone] Encounter Details Date Type Department Care Team (Late st Contact Info) Description 01/25/2023 Procedure Pass Non-Invasive Cardiology [address] [place] [address] Social History Tobacco Use Types Packs/Day Years Used Date Smoking Tobacco: Never Smokeless Tobacco: Never Alcohol Use Standard Drinks/Week Comments Yes 0 (1 standard drink = 0.6 oz pur e alcohol) 4-5/ week Education Answer Date Recorded Are you interested in more education? Not on appel e 06/25/2022 Are you concerned about learning? [...] on file documented as of this encounter Functional Status * Calculated C-SSRS Risk Score (Lifetime/Recent) Answer Date of Assessment Author No Risk Indicated 01/25/2023 8:24 AM Jessica Hidalgo RN * Hale Suicide Severity Rating Scale (Screener/Recent Self-Report) Question Answer Date of Assessment Author 1. Wish to be (Past 1 Month) No 01/25/2023 8:24 AM Lisa Santillan RN 2. Non-Specific Active Suicidal Thoughts (Past 1 Month) No 01/25/2023 8:24 AM Lisa Santillan RN 6. Suicidal Behavior (Lifetime) No 01/25/2023 8:24 AM Lisa Santillan RN documented as of this encounter Plan of Treatment Upcoming Encounters Date Type Department Care Team ([facility] st Contact Info) Description 11/28/2024 11:15 AM EDT Office Visit [facility] Division of Community Surgery [address] [facility] [address] [place] [address] Jeanette Mueller CNP [address] [place] [address] [email or web address] 03/28/2025 1:30 PM EST Office Visit [facility] Neurology [address] [place] [address] Edmar Severino MD [address] [place] [address], 2nd [place] [address] [email or web address] 05/12/2025 9:00 AM EDT Office Visit [facility] Department of Neurology [address] [facility], 8th Floor, [address] [place] [address] Ana Luisa Guerrier MD 60 [place] [address] [email or web address] documented as of this encounter Visit Diagnoses Not on filedocumented in this encounter Additional Health Concerns Assessment Noted Time PHQ-2 Depression Total Score: 0 08/13/19 23 1:26 PM EDT documented as of this encounter Care Teams Coin Machine Service Repairer Relationship Specialty Start Date End Date Trell Serrano MD 2 [facility] 180 [place] [phone] PCP - General Family Medicine 04/19/22 03/06/23 Trell Serrano MD 2 [facility] [address] [place] [address] PCP - General Family Medicine 03/07/23 Tona Barksdale CNP [address] [phone] Nurse Practitioner 06/08/23 Douglas Rojas MD [address] [place] [address] Cardiology 06/08/23 documented as of this encounter Additional Source Comments The information contained in this document represents components of the legal health record. It is not the complete legal health record.[facility]
--- OUTSIDE RECORDS SUMMARY | 2024-11-13 17:00 | XMS_ITS | Encounter Summary ---
Author Organization [facility] Address [address] [facility] [address] [place] [address] Phone Care Team Providers Care School Office Manager Name Role Phone Trell Serrano MD Primary Care Provider [phone] Trell Serrano MD Primary Care Provider + [phone] Tona Barksdale CNP Unavailable [phone] Douglas Rojas MD Unavailable [phone] Encounter Details Date Type Department Care Team (Late st Contact Info) Description 01/24/2023 Procedure Pass Non-Invasive Cardiology [address] [place] [address] Social History Tobacco Use Types Packs/Day Years [...] 01/25/2023 8:24 AM Jessica Hidalgo RN * Barnes Suicide Severity Rating Scale (Screener/Recent Self-Report) Question [...] Upcoming Encounters Date Type Department Care Team ([facility] st Contact Info) Description 11/28/2024 11:15 AM EDT Office Visit [facility] Division of Community Surgery [address] [facility] [address] [place] [address] Jeanette Mueller CNP 55 [place] [address] [email or web address] 03/28/2025 1:30 PM EST Office Visit [facility] Neurology [address] [place] [address] Edmar Severino MD [address] [place] [address], 2nd [place] [address] [email or web address] 05/12/2025 9:00 AM EDT Office Visit [facility] Department of Neurology [address] [facility], 8th Floor, [address] [place] [address] Ana Luisa Guerrier MD 60 [place] [address] [email or web address] documented as of this encounter Visit Diagnoses Not on filedocumented in this encounter Additional Health Concerns Assessment Noted Time PHQ-2 Depression Total Score: 0 08/13/19 23 1:26 PM EDT documented as of this encounter Care Teams School Office Manager Relationship Specialty Start Date End Date Trell Serrano MD 2 [facility] 180 [place] [phone] [email or web address] PCP - General Family Medicine 04/19/22 03/06/23 Trell Serrano MD 2 [facility] [address] [place] [address] PCP - General Family Medicine 03/07/23 Tona Barksdale CNP [address] [address] Nurse Practitioner 06/08/23 Douglas Rojas MD [address] [place] [address] Cardiology 06/08/23 documented as of this encounter Additional Source Comments The information contained in this document represents components of the legal health record. It is not the complete legal health record.[facility]
--- OUTSIDE RECORDS SUMMARY | 2024-11-13 17:00 | XMS_ITS | Encounter Summary ---
Author Organization [facility] Address [address] [facility] [address] [place] [address] Phone Care Team Providers Care Field Services Analyst Name Role Phone Trell Serrano MD Primary Care Provider [phone] Trell Serrano MD Primary Care Provider + [phone] Tona Barksdale CNP Unavailable [phone] Douglas Rojas MD Unavailable [phone] Encounter Details Date Type Department Care Team (Late st Contact Info) Description 02/06/2023 Procedure Pass [facility] Scan - [address] [address] Social History Tobacco Use Types Packs/Day Years [...] Date of Assessment Author No Risk Indicated 02/06/2023 4:45 PM EST Chris Cannon RN * Mono Suicide Severity Rating Scale (Screener/Recent Self-Report) Question Answer Date of Assessment Author 1. Wish to be (Past 1 Month) No 023 4:45 PM Chris Reyes RN 2. Non-Specific Active Suici teddy Thoughts (Past 1 Month) No 02/06/2023 4:45 PM EST Omar Cannon RN 6. Suicidal Behavior (Lifetime) No 3 4:45 PM EST Chris Cannon RN documented as of this encounter Plan of Treatment Upcoming Encounters Date Type Department Care Team ([facility] st Contact Info) Description 11/28/2024 11:15 AM EDT Office Visit [facility] Division of Community Surgery [address] [facility] [address] [place] [address] Jeanette Mueller, KIM [address] [place] [address] [email or web address] 03/28/2025 1:30 PM EST Office Visit [facility] Neurology [address] [place] [address] Edmar Severino MD [address] [place] [address], 2nd [place] [address] [email or web address] 05/12/2025 9:00 AM EDT Office Visit [facility] Department of Neurology [address] [facility], 8th Floor, [address] [place] [address] Ana Luisa Guerrier MD 60 [place] [address] [email or web address] documented as of this encounter Visit Diagnoses Not on filedocumented in this encounter Additional Health Concerns Assessment Noted Time PHQ-2 Depression Total Score: 0 01/27/20 23 8:32 AM EST documented as of this encounter Care Teams Field Services Analyst Relationship Specialty Start Date End Date Trell Serrano MD 2 [facility] [address] [place] [phone] [email or web address] PCP - General Family Medicine 04/19/22 03/06/23 Trell Serrano MD 2 [facility] [address] [place] [phone] [email or web address] PCP - General Family Medicine 03/07/23 Tona Barksdale CNP 2 [facility] 180 [place] [address] [email or web address] Nurse Practitioner 06/08/23 Douglas Rojas MD [address] [place] [id number] [email or web address] Cardiology 06/08/23 documented as of this encounter Additional Source Comments The information contained in this document represents components of the legal health record. It is not the complete legal health record.[facility]
--- OUTSIDE RECORDS SUMMARY | 2024-11-13 17:00 | XMS_ITS | Encounter Summary ---
Author Organization [facility] Address [address] [facility] [address] [place] [address] Phone Care Team Providers Care Enrichment Director Name Role Phone Trell Serrano MD Primary Care Provider [phone] Trell Serarno MD Primary Care Provider [phone] Tona Barksdale CNP Unavailable [phone] Douglas Rojas MD Unavailable [phone] Encounter Details Date Type Department Care Team (Late st Contact Info) Description 08/26/2022 Ancillary Orders [facility] [address] [facility] [address] [address] [place] [address] Giselle Flor MD [email or web address] Soft tissue mass Social History Tobacco Use [...] Description 11/28/2024 11:15 AM EDT Office Visit [facility] Division of Community Surgery [address] [place] [address] Jeanette Mueller, COURTROOM DEPUTY 55 [place] [address] [email or web address] 03/28/2025 1:30 PM EST Office Visit [facility] Neurology 22 [place] [address] Edmar Severino MD 22 [facility], 2nd [place] [address] [email or web address] 05/12/2025 9:00 AM EDT Office Visit [facility] Department of Neurology 55 [facility], 8th Floor, [address] [place] [address] Ana Luisa Guerrier MD 60 [place] [address] [email or web address] documented as of this encounter Visit Diagnoses Diagnosis Soft tissue mass Disorders of soft tissue, unspecified documented in this encounter Additional Health Concerns Assessment Noted Time PHQ-2 Depression Total Score: 0 08/13/19 23 1:26 PM EDT documented as of this encounter Care Teams Enrichment Director Relationship Specialty Start Date End Date Trell Serrano MD 2 [facility] 180 [place] [phone] PCP - General Family Medicine 04/19/22 03/06/23 Trell Serrano MD [address] [employer] [address] [phone] PCP - General Family Medicine 03/07/23 Tona Barksdale CNP [address] [place] [address] 180 [place] [phone] [email or web address] Nurse Practitioner 06/08/23 Douglas Rojas MD [address] [place] [address] 301 [place] [address] [email or web address] 06/08/23 documented as of this encounter Additional Source Comments The information contained in this document represents components of the legal health record. It is not the complete legal health record.[facility]
--- OUTSIDE RECORDS SUMMARY | 2024-11-13 17:00 | XMS_ITS | Clinical Summary ---
Author Organization [facility] Address [address] [place] [address] Phone Care Team Providers Care Diesel Lube Tech Name Role Phone Trell Serrano MD Primary Care Provider [phone] Tona Barksdale TICKET SPECULATOR Unavailable [phone] Douglas Rojas MD Unavailable [phone] Allergies No known active allergies Medications aspirin 81 MG EC tablet Take 81 mg by mouth daily. Active amitriptyline (ELAVIL) 10 MG tabletIndicatio ns:Chronic daily headache Take 1 tablet (10 mg total) by mouth nightly at bedtime. 90 tablet 2 5 Active sertraline (ZOLOFT) 25 MG tabletIndicatio ns:Depression, unspecified depression type,Anxiety state TAKE 1 TABLET (25 MG TOTAL) BY MOUTH DAILY. 90 tablet 5 Active sertraline (ZOLOFT) 25 MG tabletIndicatio ns:Depression, unspecified depression type,Anxiety state Take 1 tablet (25 mg total) by mouth daily. 90 tablet 5 025 Discontinued Active Problems Problem Noted Date Diagnosed Date Dizziness and giddiness 09/12/2024 Assessment & Plan (09/12/2024 12:26 PM EDT): Ongoing dizziness and ear fullness with history of vertebral artery dissection. Neurology suspects vestibular cause. ENT evaluation scheduled for 2nd opinion. First ENT evaluation did not evaluate vestibular cause - Proceed with ENT appointment for vestibular evaluation. - Consider MRI of vestibular area if recommended by ENT. TMJ (temporomandibular joint disorder) Assessment & Plan (09/12/2024 12:27 PM EDT): TMJ disorder causing headaches and ear fullness. Physical therapy beneficial. Amitriptyline started for headaches, minimal improvement. Neurology advised continuation before dosage adjustment. - Continue physical therapy for TMJ. - Consider increasing amitriptyline to 25 mg if no improvement after 1-1.5 months. Pilar cyst of scalp 09/12/2024 Assessment & Plan (09/12/2024 12:27 PM EDT): Chronic scalp cysts, larger cyst 1.75 cm, smaller 1 cm. No infection or acute changes. Considering removal. - Referral placed Mixed hyperlipidemia 09/12/2024 Assessment & Plan (09/12/2024 12:31 PM EDT): Previously elevated levels. Lost 6 pounds and has changed diet - Will recheck cholesterol levels Vertebral artery dissection 07/25/2024 Assessment & Plan (09/12/2024 12:24 PM EDT): Post-chiropractic manipulation vertebral artery dissection. On aspirin. Completed plavix - Continue aspirin until October 10 follow-up. - Follow up with neurology as scheduled Assessment & Plan (07/25/2024 5:57 AM EDT): Post chiropractic manipulation. Records in media-noted. Pulmonary history from the patient. Agree with aspirin, Plavix as per neurology, neurosurgery plan. Follow-up with specialist as planned. Palpitations 03/09/2023 Assessment & Plan (04/16/2024 11:41 AM EST): H/o atypical chest pain. S/p ETT - normal. Had seen cardiology. F/u as planned. Assessment & Plan (04/09/2023 11:13 PM EST): Patient's palpitations have come down currently. Anxiety about health 02/16/2023 Assessment & Plan (09/12/2024 12:28 PM EDT): Health anxiety post-vertebral artery dissection. Tapering sertraline, engaged in beneficial weekly therapy. Off ativan. Overall, patient is doing better - Continue tapering sertraline to 12.5 mg for two weeks, then discontinue. - Continue weekly in-person therapy sessions. Assessment & Plan (07/25/2024 5:57 AM EDT): Anxiety worsened with recent vertebral artery dissection. Uses ativan prn - refills given. Follow-up with me as planned in office. Assessment & Plan (06/25/2024 9:15 AM EDT): History of panic attack in 2022 . anxiety symptoms since then. Ongoing phobia, body regarding possible palpitations. No history of mental health illness ongoing up. Never had neuropsych exam. Denies depression. Situational low mood from him being single currently. He exercises-runs daily. No cardiac symptoms. He feels better with exercise. Minimal generalized stress. Currently single. Family history of anxiety in mom and sister. Restarted Zoloft since last 6 weeks. Also seeing therapist weekly. -Continue 50 mg dose. Follow-up in August. Plan to increase dose as needed and tolerated -Reports no ongoing panic attacks at this time. Hold off short acting medications including BuSpar at this time -Sleep disturbed but no anxiety symptoms at night. Encouraged to try OTC melatonin. Continue healthy lifestyle. Include yoga, meditation and lifestyle. Assessment & Plan (04/16/2024 11:41 AM EST): Ongoing symptoms. Not controlled. Tried zoloft 1 week only and stopped. Reiterated to try SSRI again, Aim to increase to 50 mg . Zoloft new script sent. F/u 6 weeks . VV . He lives in [facility] now. Restart buspar 5 mg bid. Encouraged [...] Reviewed side effects- information provided Referral to [employer] to be connected with a therapist Referral to Depression 02/16/2023 Assessment & Plan (02/16/2023 4:43 PM EST): He was recently diagnosed with heart arrhythmia. He is followed by cardiology. Hx anxiety and depression. Not on medication and not currently seeing a therapist. Started him on Zoloft 25 mg E-visit in 2 weeks- will increase 50 mg if tolerating medication Reviewed side effects- information provided Referral to [facility] to be connected with a therapist Referral to SW Tachycardia 02/12/2023 Assessment & Plan (06/09/2023 2:38 [...] MRI and stress test to evaluate further Annual physical exam 07/12/2022 Assessment & Plan (09/12/2024 12:23 PM EDT): 29-year-old male presenting for routine wellness exam. Age and gender appropriate health maintenance and counseling provided during visit. Routine lab work ordered. Vaccines: UTD Colonoscopy: age 44, no red flag symptoms Vision: eye exam completed, reports floaters---no other vision changes Hearing: no issues Dental: routine cleanings Skin: does not wear sunscreen. Advised importance, no concerning lesions Chronic problems addressed as above. Follow-up in 1 year for next annual exam. Counseled patient on the following: Reviewed seat belt/sports safety Emphasized importance of using sunscreen/hat/protective clothing. Monitor for any new or changing skin lesions. Reviewed ABCD's melanoma. Safe sex/contraception/STD prevention Reinforced smoking cessation. Reviewed available options/methods Reviewed healthy diet- plant based foods, less processed foods. Less red meat, more leaner options such as poultry and fish. Fruits in moderation. Aerobic exercise- at least 30 minutes five times per week- brisk walking, running, cycling, elliptical, stair stepper, swimming --> promotes cardiovascular health Resistance exercise- body weight exercises -yoga, band exercises, weights--> promotes musculoskeletal health Core exercise- body weight, band, weight exercises that focus on abdominal and low back strength--> promotes improved balance Assessment & Plan (09/12/2023 3:05 PM EDT): [...] Problem Noted Date Diagnosed Date Resolved Date Benign paroxysmal positional vertigo 02/16/2023 09/12/2024 Assessment & Plan (02/16/2023 4:38 PM EST): Positive Neoga-Hallpike Advised to take meclizine as needed for dizziness Reviewed Kev maneuver- assigned via portal to reference Follow-up in 1 to 2 weeks. If these interventions do not improve symptoms, will refer to vestibular physical therapy. SVT (supraventricular tachycardia) 01/29/2023 06/25/2024 Assessment & Plan (01/29/2023 2:28 PM EST): [...] Attempt to obtain limited report from monitor #[phone] Fall precautions Hypophosphatemia 01/29/2023 04/16/2024 Assessment & Plan (01/29/2023 2:28 PM EST): Hypophosphatemia -Replete phosphate. Soft tissue mass 08/12/2022 09/12/2024 Assessment & Plan (08/12/2022 2:00 PM EDT): [...] with PCP after US results are back Encounters Date Type Department Care Team Description 11/09/2024 Refill [facility] [address] [place] [address] Trell Serrano MD Medication Refill 09/25/2024 8:40 AM EDT - 09/25/2024 11:59 PM EDT Hospital Encounter [facility] [address] [place] [address] Tona Barksdale CNP Discharge Disposition: Home or Self Care 09/25/2024 Transcribe Orders [facility] [address] [place] [address] Tona Barksdale CNP Mixed hyperlipidemia (Primary Dx); Annual physical exam 09/12/2024 8:00 AM EDT Office Visit [facility] [address] [employer] [facility] [address] [place] [address] Tona Barksdale CNP Annual physical exam (Primary Dx); Screening for human immunodeficiency virus; Need for hepatitis C screening test; Pilar cyst of scalp; Screening examination for STI; Need for hepatitis B screening test; Mixed hyperlipidemia; Vertebral artery dissection; Dizziness and giddiness; TMJ (temporomandibular joint disorder); Anxiety about health 08/27/2024 1:00 PM EDT Telemedicine [facility] [address] [place] [address] Tashi Smith PA-C Chronic daily headache (Primary Dx); Dizziness 08/25/2024 Refill [facility] [address] [facility] [address] [place] [address] Trell Serrano MD Med Change Request 08/15/2024 Orders Only [facility] [address] [place] [address] Anotnia Onofre PA-C TMJ (dislocation of temporomandibular joint) (Primary Dx) from Last 3 Months Immunizations Immunization Administration Dates Next Due COVID-19 (Pre-12/19) Pfizer Vaccine, mRNA, gaby-sucrose, PF 06/05/2021,05/04/2020 DTP 1994,1994,1994 DTaP 05/03/1999,11/03/1995 Flu H1n1 Tiv Preservative Free 02/10/2009 Hepatitis B, unspecified formulation 01/31/1995, 1994,1994 Hib, unspecified formulation 08/01/1995, 1994,1994,06/27 IPV 05/03/1999 Influenza Quadrivalent Prese rvative Free IM 02/07/2014,11/16/2012 Influenza, Unspecified Formulation 01/03,01/19/2016,03/02/2015,12/02,11/04/2010,04/19/2010,02/15/2009 ,12/15/2007,01/06/2007,12/29/2005,1107/1997,12/18/1996,01/10/1996, 6 MMR 05/03/1999,08/01/1995 Meningococcal MCV4P 04/19/2012,10/06/2006 Polio, Unspecified Formulation 1994,1994,1994 Tdap 07/10/2022,09/20/2016,05/29/2006 Varicella 02/24/2009,05/05/1995 Family History Medical History Relation Comments Atrial fibrillation Mother Anxiety disorder Sister Breast cancer Neg Hx Colon cancer Neg Hx Colon polyps Neg Hx Coronary artery disease Neg Hx Relation Status Comments Mother Sister Social History Tobacco Use Types Packs/Day Years Used Date Smoking Tobacco: Never Passive Smoke Exposure: Past Smokeless Tobacco: Never Tobacco Cessation:Counseling Given: Not Answered Alcohol Use Standard Drinks/Week Comments Yes 2 [...] Sign Reading Time Taken Comments Blood Pressure 122/76 09/12/2024 7:58 AM EDT Pulse 90 09/12/2024 7:58 AM EDT Temperature 36.8 C (98.2 F) 04/16/2024 11:11 AM EST Respiratory Rate 22 02/06/2023 8:00 PM EST Oxygen Saturation 98% 09/12/2024 7:58 AM EDT Inhaled Oxygen Concentration - - Weight 86.1 kg (189 lb 12.8 oz) 09/12/2024 7:58 AM EDT Height 182 cm (5' 11.65 ) 09/12/2024 7:58 AM EDT Body Mass Index 25.99 09/12/2024 7:58 AM EDT Plan of Treatment Upcoming Encounters Date Type Department Care Team (Late st Contact Info) Description 11/28/2024 11:15 AM EDT Office Visit [facility] Division of Community Surgery [address] [place] [address] Jeanette Mueller, TICKET SPECULATOR [address] [place] [address] [email or web address] 03/28/2025 1:30 PM EST Office Visit [facility] Neurology [address] [place] [address] Edmar Severino MD [address] [place] [address], 2nd [place] [address] [email or web address] 05/12/2025 9:00 AM EDT Office Visit [facility] Department of Neurology [address] [facility], 8th Floor, [address] [place] [address] Ana Luisa Guerrier MD [address] [place] [address] [email or web address] Health Maintenance Due Date Last Done Comments INFLUENZA VACCINE (#1) 2024 7, 01/19/2016, 01/19/2016, Additional history exists COVID-19 VACCINE (2024- season) 2024 06/05/2021, 05/04/2020 DEPRESSION SCREENING 09/11/2025 09/11/2024, 04/25/19 24 Adult Td,Tdap Booster 07/10/2032 07/10/2022 , 09/20/2016, 05/29/2006 HIB VACCINES Completed 08/01/1995, 07/1994, 1994, Additional history exists MENINGOCOCCAL VACCINES (ACWY) Completed 04/19/2012, 10/06/2006 HEPATITIS C SCREENING Completed 07/13/2022 HIV ONE-TIME SCREENING (18-65 YEARS) Completed 07/13/2022 SMOKING STATUS SCREENING (Once After 26 Yrs) Completed 09/12/2024 HEPATITIS A VACCINES Aged Out No long er eligible based on patient's age to complete this topic MENINGOCOCCAL VACCINES (B) Aged Out N o longer eligible based on patient's age to complete this topic PNEUMOCOCCAL VACCINES (0-49 years) Aged Out No longer eligible based on patient's age to complete this topic Medical Devices Not on file Procedures Procedure Name Priority Date/Time Associated Diagnosis Comments CHLAMYDIA TRACHOMATIS AND NEISSERIA GONORRHOEAE NUCLEIC ACID DETECTION Routine 09/25/2024 9:28 AM EDT Screening examination for STI HEPATITIS C ANTIBODY, QUALITATIVE Routine 07/13/2022 10:54 AM EDT Need for hepatitis C screening test from Last 3 Months or Most Recently Relevant to Health Maintenance Results * Chlamydia trachomatis and Neisseria gonorrhoeae Nucleic Acid Amplification (09/25/2024 9:28 AM EDT) CHLAMYDIA TRACHOMATIS Not Detected Not Detected [facility] NEISERIA GONORRHOEAE Not Detected Not Detected [facility] SPECIMEN TYPE URINE [facility] Urine (Urine) 09/25/2024 9:2 8 AM EDT 09/25/2024 9:49 AM EDT us Tona Barksdale TICKET SPECULATOR NON CULTURE MICROBI OLOGY Final Result [address] [address] * Hepatitis C antibody, qualitative (07/13/2022 10:54 AM EDT) HCV ANTIBODY Negative Negative [facility] Blood 07/13/2022 10:5 4 AM EDT 07/13/2022 1:42 PM EDT us Trell Serrano MD LAB BLOOD ORDERABLES Final R esult [address] [place] [address], [facility] [phone] from Last 3 Months or Most Recently Relevant to Health Maintenance Insurance [employer]UE [employer]OSS OUT OF STATE PPO [employer] OUT OF STATE PPO [employer] OUT OF STATE PPO [employer] OUT OF STATE PPO [employer] OUT OF STATE PPO [employer] OUT OF STATE PPO [employer] OUT OF STATE PPO Advance Directives For more information, please contact: [phone] (9AM - 5PM [place]/[facility], Monday-Monday) Documents on File Type Date Recorded Patient Whale Trainer Expl anation Healthcare Proxy 01/31/2023 3:10 PM * Full Code (Latest Code Status on File) Date Activated Date Inactivated Comments 01/29/2023 3:44 PM Question Answer Comments Code Status Confirmed With: Patient Code Status Communicated To: Inpatient Attending Care Teams Diesel Lube Tech Relationship Specialty Start Date End Date Trell Serrano MD [address] [phone] PCP - General Family Medicine 03/07/23 Tona Barksdale, KIM [address] [phone] Nurse Practitioner 06/08/23 Douglas Rojas MD [address] [place] [address], [facility] [address] [place] [address] Cardiology 06/08/23 Additional Source Comments The information contained in this document represents components of the legal health record. It is not the complete legal health record.[facility]
--- OUTSIDE RECORDS SUMMARY | 2024-11-13 17:00 | XMS_ITS | Encounter Summary ---
Author Organization [facility] Address [address] [place] [address] Phone Care Team Providers Care Signals Intelligence Analysis Manager Name Role Phone Trell Serrano MD Primary Care Provider [phone] Trell Serrano MD Primary Care Provider [phone] Tona Barksdale CNP Unavailable [phone] Douglas Rojas MD Unavailable Encounter Details Date Type Department Care Team (Late st Contact Info) Description 08/26/2022 Ancillary Orders [facility] [address] [place] [address] Giselle Flor MD [email or web address] Social History Tobacco Use Types Packs/Day Years [...] Description 11/28/2024 11:15 AM EDT Office Visit [facility] Division of Community Surgery [address] [place] [address] Jeanette Mueller CNP [address] [place] [address] [email or web address] 03/28/2025 1:30 PM EST Office Visit [facility] Neurology [address] [place] [address] Edmar Severino MD 22 [facility], 2nd [place] [address] [email or web address] 05/12/2025 9:00 AM EDT Office Visit [facility] Department of Neurology [address] [facility], 8th Floor, [address] [place] [address] Ana Luisa Guerrier MD 60 [place] [address] [email or web address] documented as of this encounter Visit Diagnoses Not on filedocumented in this encounter Additional Health Concerns Assessment Noted Time PHQ-2 Depression Total Score: 0 08/13/19 23 1:26 PM EDT documented as of this encounter Care Teams Signals Intelligence Analysis Manager Relationship Specialty Start Date End Date Trell Serrano MD [address] [employer] [address] [phone] PCP - General Family Medicine 04/19/22 03/06/23 Trell Serrano MD 2 [employer] [address] [phone] PCP - General Family Medicine 03/07/23 Tona Barksdale, KIM [address] [place] [address] [address] [place] [address] [email or web address] Nurse Practitioner 06/08/23 Douglas Rojas MD [address] [place] [address] [address] [place] [address] [email or web address] Cardiology 06/08/23 documented as of this encounter Additional Source Comments The information contained in this document represents components of the legal health record. It is not the complete legal health record.[facility]
--- OUTSIDE RECORDS SUMMARY | 2024-11-13 17:00 | XMS_ITS | Encounter Summary ---
Author Organization [facility] Address [address] [facility] [address] [place] [address] Phone Care Team Providers Care Extermination Inspector Name Role Phone Trell Serrano MD Primary Care Provider [phone] Tona Barksdale MACHINE OPERATIONS SUPERVISOR Unavailable [phone] Douglas Rojas MD Unavailable [phone] Reason for Visit * Reason Comments Med Change Request Encounter Details Date Type Department Care Team (Late st Contact Info) Description 08/25/2024 Refill [facility] [address] [facility] [address] [place] [address] Trell Serrano MD 2 [facility] [address] [place] [phone] [email or web address] Med Change Request Social History Tobacco Use Types Packs/Day Years [...] Upcoming Encounters Date Type Department Care Team ([facility] st Contact Info) Description 11/28/2024 11:15 AM EDT Office Visit [facility] Division of Community Surgery [address] [facility] [address] [place] [address] Jeanette Mueller CNP 55 [place] [address] [email or web address] 03/28/2025 1:30 PM EST Office Visit [facility] Neurology [address] [place] [address] Edmar Severino MD [address] [place] [address], 2nd [place] [address] [email or web address] 05/12/2025 9:00 AM EDT Office Visit [facility] Department of Neurology [address] [facility], 8th Floor, [address] [place] [address] Ana Luisa Guerrier MD 60 [place] [address] [email or web address] documented as of this encounter Visit Diagnoses Not on filedocumented in this encounter Additional Health Concerns Assessment Noted Time PHQ-9 Depression Total Score: 5 04/25/19 24 8:35 AM EST PHQ-2 Depression Total Score: 2 06/26/19 25 9:01 AM EDT documented as of this encounter Care Teams Extermination Inspector Relationship Specialty Start Date End Date Trell Serrano MD [address] [phone] PCP - General Family Medicine 03/07/23 Tona Barksdale CNP [address] [phone] Nurse Practitioner 06/08/23 Douglas Rojas MD [address] [place] [address], [address] [address] Cardiology 06/08/23 documented as of this encounter Additional Source Comments The information contained in this document represents components of the legal health record. It is not the complete legal health record.[facility]
--- OUTSIDE RECORDS SUMMARY | 2024-11-13 17:00 | XMS_ITS | Encounter Summary ---
Author Organization [facility] Address [address] [facility] [address] [place] [address] Phone Care Team Providers Care Collection Teller Name Role Phone Trell Serrano MD Primary Care Provider [phone] Trell Serrano MD Primary Care Provider [phone] Tona Barksdale CNP Unavailable [phone] Douglas Rojas MD Unavailable [phone] Encounter Details Date Type Department Care Team (Late st Contact Info) Description 01/25/2023 Procedure Pass [facility] [address] [place] [address] Social History Tobacco Use Types Packs/Day Years [...] 01/25/2023 8:24 AM Jessica Hidalgo RN * [place] Suicide Severity Rating Scale (Screener/Recent Self-Report) Question [...] Upcoming Encounters Date Type Department Care Team ([facility] st Contact Info) Description 11/28/2024 11:15 AM EDT Office Visit [facility] Division of Community Surgery [address] [facility] [address] [place] [address] Jeanette Mueller CNP [address] [place] [address] [email or web address] 03/28/2025 1:30 PM EST Office Visit [facility] Neurology [address] [place] [address] Edmar Severino MD [address] [place] [address], 2nd [place] [address] [email or web address] 05/12/2025 9:00 AM EDT Office Visit [facility] Department of Neurology [address] [facility], 8th Floor, [address] [place] [address] Ana Luisa Guerrier MD [address] [place] [address] [email or web address] documented as of this encounter Visit Diagnoses Not on filedocumented in this encounter Additional Health Concerns Assessment Noted Time PHQ-2 Depression Total Score: 0 08/13/19 23 1:26 PM EDT documented as of this encounter Care Teams Collection Teller Relationship Specialty Start Date End Date Trell Serrano MD 2 [facility] [address] [place] [phone] [email or web address] PCP - General Family Medicine 04/19/22 03/06/23 Trell Serrano MD 2 [facility] [address] [place] [phone] PCP - General Family Medicine 03/07/23 Tona Barksdale CNP [address] [phone] Nurse Practitioner 06/08/23 Douglas Rojas MD [address] [place] [address] Cardiology 06/08/23 documented as of this encounter Additional Source Comments The information contained in this document represents components of the legal health record. It is not the complete legal health record.[facility]
== END 2024-11-13 14:08 | disposition home or self-care (01) ==
LOC: HO.HSMS 13:17
PROVIDERS: Visit Provider Psychiatry & Neurology Neurology
DX: R42 Dizziness and giddiness (principal); R06.83 Snoring; G47.10 Hypersomnia, unspecified; R51.9 Headache, unspecified; G89.29 Other chronic pain
CPT/HCPCS: 99204

== ENCOUNTER 2024-12-26 13:16 | Outpatient (AMB) | payer BC, SELFPAY ==
[2024-12-26 13:19] VITALS: BP 102/68; PULSE 50; BMI 27.4
--- NOTE | 2024-12-26 13:19 | MHC.OFFVIS ---
Vital Signs 12/26/24 13:19 Height 6 ft Weight 201 lb 15.095 oz BMI 27.4 BP 102/68 Blood Pressure Location Rt brachial Position Sitting Pulse 50 Pulse Source Pulse Oximeter Intake Visit Reasons: Concerns over blood pooling in feet & hands. 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 Most recent Holter study showed sinus bradycardia with a pause as he was symptomatic with these, patient was referred out to EP for pacemaker evaluation. Today, patient reports that he was recently at [facility] for face and neck tingling that he developed roughly 5 days after neck treatment with chiropractor. 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 Patient states that he has completed this and was recently cleared at a follow up appointment. Today, patient is here to discuss his concerns about palms getting red when they are down versus how it gets pale upon raising it up. Patient also concerned about having some mild swelling in his legs after standing hold his work. Patient does have significant anxiety and states that he gets fixated on things. Patient is otherwise denying any exertional symptoms of chest pain, shortness of breath, palpitations, orthopnea, PND, leg edema, presyncope or syncope. [facility] Medical History Chronic headaches Hypersomnia Snoring Family History Mother A-fib Maternal Grandmother A-fib Social History Alcohol intake: current Alcohol intake frequency: a few times a week Patient Tobacco Use Status: Never used Tobacco Review of Systems Const Denies daytime sleepiness, Denies difficulty sleeping, Denies snoring, Denies stops breathing during sleep and Denies weakness Card Denies chest pain, Denies rapid heart rate, Denies irregular heart rhythm, Denies claudication, Denies leg edema, Denies lightheadedness, Denies palpitations, Denies dyspnea, Denies dyspnea on exertion, Denies orthopnea, Denies paroxysmal nocturnal dyspnea and Denies slow heart rate Resp Denies cough, Denies dyspnea, Denies dyspnea on exertion and Denies snoring GI Reports no additional complaints, Denies hematochezia, Denies change in stool character and Denies dyspepsia Musc Denies abnormal gait, Denies muscle weakness and Denies numbness Neuro Denies abnormal gait, Denies numbness and Denies weakness Endo Denies palpitations Physical Exam Vital Signs: Last Vital Signs Pulse 50 12/26/24 13:19 BP 102/68 12/26/24 13:19 BMI result Body Mass Index 27.4 Const General: cooperative, healthy appearing, comfortable and no acute distress Orientation/consciousness: patient oriented x3 HEENT Head: Yes normal to inspection Neck Neck: Yes normal visual inspection, Yes trachea midline and Yes supple Chest Chest palpation & inspection: normal inspection of the chest Resp Effort & Inspection: normal respiratory effort Auscultation: clear to auscultation bilaterally, no crackles, no rales, no rhonchi and no wheezes Cardio Jugular venous distension: no JVD Palpation: normal PMI Rate: bradycardic Rhythm: regular rhythm Heart sounds: S1 normal heart sound present, S2 normal heart sound present, no click, no gallops, no murmurs and no rubs Peripheral pulses: Peripheral pulses 2+ throughout GI Inspection: Yes normal to inspection Palpation (GI): Soft to palpation Auscultation: normal bowel sounds Skin General skin exam: no rashes or lesions noted Neuro General: patient oriented x3 Extrem General: Yes normal to inspection, No no pedal edema and No calf tenderness Psych Appearance: grossly normal Mental Status: mental status grossly normal Speech and movement: Normal speech and movement present Assessment & Plan Assessment & Plan (1) Sinus bradycardia: Code(s): R00.1 - Bradycardia, unspecified Category: Medical (2) Dizziness: Comment: ? vertgo BPV Vetsibular migraine Code(s): R42 - Dizziness and giddiness Category: Medical Plan 05/07/2024-patient underwent a treadmill stress test with exercise of 12 minutes 40 seconds achieving 85% MPHR without any EKG changes. 05/07/2024-patient's echo study showed low-normal EF between 50-55% with no wall motion or valvular abnormalities. 05/07/2024-patient underwent another Holter monitor for 7 days that showed frequent sinus bradycardia 68% of the time with 1 pause of 2.7 seconds during sleep hours, and occasional PACs. Due to his symptomatic bradycardia and the pause seen on the Holter, we had referred patient out to an EP for a pacemaker discussion. Patient states that he has not heard back and therefore our office is reaching out to [facility]. 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 Patient is following with Neurology for this. Today's appointment patient mostly just anxious about his palms getting red and mild leg edema upon standing all day. Reassurance provided his palms getting red with gravity versus pale upon raising it up with normal and just shows there is circulation. Also reassured that mild leg edema he is dependent position and advised wearing compression socks to help with that. Patient also requested to check his orthostatic blood pressure which was negative. Blood pressure today is within normal limits. Advised addressing anxiety. Advised on heart healthy diet, adequate hydration, regular exercise, stress mitigation strategies, and avoiding stimulants. This note was generated using voice recognition software. While every effort has been made to ensure accuracy and proper pharmaceutical officer, there may be occasional errors that could affect the content or meaning of the described symptoms. Coding Level of Care Code Est Pt Level 3 (37336) Diagnoses Sinus bradycardia R00.1 Dizziness R42 Time Spent (min) 29 Comment Time spent in reviewing the chart, test results, assessment, counseling and documentation.
--- OUTSIDE RECORDS SUMMARY | 2024-12-26 16:12 | XMS_ITS | Encounter Summary ---
Author Organization [facility] Address [address] [facility] [address] [place] [address] Phone Care Team Providers Care Route Sales Delivery Drivers Supervisor Name Role Phone Trell Serrano MD Primary Care Provider [phone] Trell Serrano MD Primary Care Provider [phone] Tona Barksdale CNP Unavailable [phone] Douglas Rojas MD Unavailable [phone] Encounter Details Date Type Department Care Team (Late st Contact Info) Description 01/25/2023 Procedure Pass Non-Invasive Cardiology [address] [place] [address] Social History Tobacco Use Types Packs/Day Years [...] 01/25/2023 8:24 AM Jessica Hidalgo RN * [place] Suicide Severity Rating Scale (Screener/Recent Self-Report) Question [...] Care Team (Late st Contact Info) Description 03/28/2025 1:30 PM EST Office Visit [facility] Neurology [address] [place] [address] Edmar Severino MD [address] [place] [address], 2nd [place] [address] [email or web address] 05/14/2025 1:00 PM EDT Office Visit NEUROBEHAVIORAL [address], 3[address] Floor, [address] [place] [address] Rony Moore MD [address] [place] [address] [email or web address] documented as of this encounter Visit Diagnoses Not on filedocumented in this encounter Additional Health Concerns Assessment Noted Time PHQ-2 Depression Total Score: 0 08/13/19 23 1:26 PM EDT documented as of this encounter Care Teams Route Sales Delivery Drivers Supervisor Relationship Specialty Start Date End Date Trell Serrano MD [address] [place] [address] [address] [place] [phone] [email or web address] PCP - General Family Medicine 04/19/22 03/06/23 Trell Serrano MD [address] [place] [address] [email or web address] PCP - General Family Medicine 03/07/23 Tona Barksdale CNP [address] [facility] [address] [place] [address] [email or web address] Nurse Practitioner 06/08/23 Douglas Rojas MD [address] [place] [address], [address] [address] [email or web address] Cardiology 06/08/23 documented as of this encounter Additional Source Comments The information contained in this document represents components of the legal health record. It is not the complete legal health record.[facility]
--- OUTSIDE RECORDS SUMMARY | 2024-12-26 16:12 | XMS_ITS | Encounter Summary ---
Author Organization [facility] Address [address] [facility] [address] [place] [address] Phone Care Team Providers Care Refueling Rampman Name Role Phone Trell Serrano MD Primary Care Provider [phone] Trell Serrano MD Primary Care Provider [phone] Tona Barksdale CNP Unavailable [phone] Douglas Rojas MD Unavailable [phone] Encounter Details Date Type Department Care Team (Late st Contact Info) Description 01/24/2023 Procedure Pass Non-Invasive Cardiology [address] [place] [address] Social History Tobacco Use Types Packs/Day Years [...] 01/25/2023 8:24 AM Jessica Hidalgo RN * [place] Suicide Severity Rating Scale (Screener/Recent Self-Report) Question [...] Description 03/28/2025 1:30 PM EST Office Visit [facility] Neurology [address] [place] [address] Edmar Severino MD [address] [place] [address] 2nd [place] [address] [email or web address] 05/14/2025 1:00 PM EDT Office Visit NEUROBEHAVIORAL [address], 3rd Floor, [address] [place] [address] Rony Moore MD [address] [place] [address] [email or web address] documented as of this encounter Visit Diagnoses Not on filedocumented in this encounter Additional Health Concerns Assessment Noted Time PHQ-2 Depression Total Score: 0 08/13/19 23 1:26 PM EDT documented as of this encounter Care Teams Refueling Rampman Relationship Specialty Start Date End Date Trell Serrano MD [address] [place] [address] [address] [place] [phone] [email or web address] PCP - General Family Medicine 04/19/22 03/06/23 Trell Serrano MD [address] [place] [address] [email or web address] PCP - General Family Medicine 03/07/23 Tona Barksdale CNP [address] [place] [address] [email or web address] Nurse Practitioner 06/08/23 Douglas Rojas MD [address] [facility], [address] [address] [email or web address] Cardiology 06/08/23 documented as of this encounter Additional Source Comments The information contained in this document represents components of the legal health record. It is not the complete legal health record.[facility]
--- OUTSIDE RECORDS SUMMARY | 2024-12-26 16:12 | XMS_ITS | Encounter Summary ---
Author Organization [facility] Address [address] [facility] [address] [place] [address] Phone Care Team Providers Care Jewelry Coater Name Role Phone Trell Serrano MD Primary Care Provider [phone] Trell Serrano MD Primary Care Provider [phone] Tona Barksdale CNP Unavailable + [phone] Douglas Rojas MD Unavailable [phone] Encounter Details Date Type Department Care Team (Late st Contact Info) Description 01/25/2023 Procedure Pass [facility] [address] [place] [address] Social History Tobacco Use Types Packs/Day Years [...] 01/25/2023 8:24 AM Jessica Hidalgo RN * [place] Suicide Severity Rating Scale (Screener/Recent Self-Report) Question [...] Description 03/28/2025 1:30 PM EST Office Visit [facility] Neurology [address] [place] [address] Edmar Severino MD [address] [place] [address] 2nd [place] [address] [email or web address] 05/14/2025 1:00 PM EDT Office Visit NEUROBEHAVIORAL [address], 3[address] Floor, [address] [place] [address] Rony Moore MD [address] [place] [address] [email or web address] documented as of this encounter Visit Diagnoses Not on filedocumented in this encounter Additional Health Concerns Assessment Noted Time PHQ-2 Depression Total Score: 0 08/13/19 23 1:26 PM EDT documented as of this encounter Care Teams Jewelry Coater Relationship Specialty Start Date End Date Trell Serrano MD [address] [place] [address] [address] [place] [phone] [email or web address] PCP - General Family Medicine 04/19/22 03/06/23 Trell Serrano MD [address] [place] [address] [email or web address] PCP - General Family Medicine 03/07/23 Tona Barksdale CNP [address] [place] [address] [email or web address] Nurse Practitioner 06/08/23 Douglas Rojas MD [address] [facility], [address] [address] [email or web address] Cardiology 06/08/23 documented as of this encounter Additional Source Comments The information contained in this document represents components of the legal health record. It is not the complete legal health record.[facility]
--- OUTSIDE RECORDS SUMMARY | 2024-12-26 16:13 | XMS_ITS | Encounter Summary ---
Author Organization [facility] Address [address] [facility] [address] [place] [address] Phone Care Team Providers Care Senior It Auditor Name Role Phone Trell Serrano MD Primary Care Provider [phone] Trell Serrano MD Primary Care Provider + [phone] Tona Barksdale CNP Unavailable [phone] Douglas Rojas MD Unavailable [phone] Encounter Details Date Type Department Care Team (Late st Contact Info) Description 02/06/2023 Procedure Pass [facility], Ct Scan - [address] [address] Social History Tobacco Use Types Packs/Day Years [...] 4:45 PM EST Chris Cannon RN * [place] Suicide Severity Rating Scale (Screener/Recent Self-Report) Question Answer Date of Assessment Author 1. Wish to be (Past 1 Month) No 023 4:45 PM EST Chris Cannon RN 2. Non-Specific Active Suici teddy Thoughts (Past 1 Month) No 02/06/2023 4:45 PM EST Omar Cannon RN 6. Suicidal Behavior (Lifetime) No 3 4:45 PM EST Chris Cannon RN documented as of this encounter Plan of Treatment Upcoming Encounters Date Type Department Care Team (Late st Contact Info) Description 03/28/2025 1:30 PM EST Office Visit [facility] Neurology [address] [place] [address] Edmar Severino MD [address] [place] [address], 2nd [place] [address] [email or web address] 05/14/2025 1:00 PM EDT Office Visit NEUROBEHAVIORAL [address], 3[address] Floor, [address] [place] [address] Rony Moore MD [address] [place] [address] [email or web address] documented as of this encounter Visit Diagnoses Not on filedocumented in this encounter Additional Health Concerns Assessment Noted Time PHQ-2 Depression Total Score: 0 01/27/20 23 8:32 AM EST documented as of this encounter Care Teams Senior It Auditor Relationship Specialty Start Date End Date Trell Serrano MD [address] [address] [email or web address] PCP - General Family Medicine 04/19/22 03/06/23 Trell Serrano MD [address] [place] [address] PCP - General Family Medicine 03/07/23 Tona Barksdale CNP 2 [facility] [address] [place] [address] Nurse Practitioner 06/08/23 Douglas Rojas MD [address] [place] [address], [address] [address] Cardiology 06/08/23 documented as of this encounter Additional Source Comments The information contained in this document represents components of the legal health record. It is not the complete legal health record.[facility]
--- OUTSIDE RECORDS SUMMARY | 2024-12-26 16:13 | XMS_ITS | Data Portability ---
Author Organization [place] - [facility], Allergy Address [address] [address] Care Team Providers Care Engineer Steam Name Role Phone YOANDY SETES Primary Care Provider Assessment Encounter Date Assessment Date Assessment LastModified by Organization Details LastModified Time 11/08/2024 11/08/2024 29-year-old male presents today for evaluation of ear pressure. He notes for a couple years, but we have previous visits in 2016 and 2019 for similar symptoms. Ear exam is normal. Audiometric testing is normal. 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 This showed clear sinuses and mastoids. He does clench his teeth. I counseled him that inflammation of the jaw joint can contribute to his sensation of ear pressure. We reviewed jaw joint precautions. He also has symptoms of migraine. This would be a risk factor also for the facial pressure and the dizziness. We did give him some literature regarding this. He asked if it is possible that he has increased pressure in the brain, but I counseled him that there is usually there would be evidence of that on dilated eye exam which he had recently and MRI which was unremarkable. All questions answered [email or web address] Not available 11/08/2024 12:06:15 Plan of Treatment Reminders Order Date Submit Date Provider Last Modified By Organization Details Last Modified Time Details Appointments None record ed. Lab None record ed. Referral None record ed. Procedures None record ed. Surgeries None record ed. Imaging None record ed. Medication Orders None record ed. Patient TargetsNo targets recorded. Patient InstructionsNo instructions recorded. Reason for Referral None Reported. Results Created Date Observation Date Name Description Value Unit Range Abnormal Flag Note LastModifiedBy Organization Detail LastModifiedTime 11/20/1911/08/2024 audio gram No observ ation record ed. [email or web address] Not Available 2024 12:21:43 11/30/19 25 07/08/2024 MRI, brain , w/o contr ast No observ ation record ed. [email or web address] Not Available 2024 15:27:22 11/30/19 25 10/04/2024 CT, angio gram, neck, w/ contr ast No observ ation record ed. [email or web address] Not Available 2024 15:27:56 Result Notes None recorded. Problems Name Problem SNOMED Code Status Onset Date Resolution Date Notes Provider Name and Address Organization Details Recorded Time Otitic barotraum a 66323244 Active 2016 Otitic barotraum a, initial encounter ; Note: Date Diagnosed : 05/19/2016 10:59 AM (T70.0XXA ) Not Available [facility] 4 02:58:03 Bilateral disorder of Eustachia n tubes 07222190471 99072 Active 2016 Other specified disorders of Eustachia n tube, bilateral ; Note: Date Diagnosed : 05/19/2016 10:59 AM (H69.83) Not Available [facility] 4 02:58:03 Bilateral temporoma ndibular joint pain 18593894697 061819 Active 2016 Arthralgi a of bilateral temporoma ndibular joint; Note: Date Diagnosed : 05/19/2016 10:59 AM (M26.623) Not Available [facility] 4 02:58:00 Bilateral earache 887568658 Active 2019 Otalgia, bilateral ; Note: Date Diagnosed : 03/26/2019 10:47 AM (H92.03) Not Available [facility] 4 02:58:02 Otalgia of right ear 3801187943 Active 2019 Otalgia, right ear; Note: Date Diagnosed : 03/26/2019 10:35 AM (H92.01) Not Available [facility] 4 02:58:00 Abnormal auditory perceptio n 28667717 Active 2019 Other abnormal auditory perceptio ns, bilateral ; Note: Date Diagnosed : 03/26/2019 10:49 AM (H93.293) Not Available [facility] 4 02:58:02 Abnormal auditory perceptio n 58944359 Active [address],[place] [facility][note 3], [place], [address] , [place] - [facility] 5 10:32:12 Temporoma ndibular joint disorder 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 Procedures Surgical History Date Name Laterality Status Provider Name and Address Organization Details Recorded Time 11/08/2024 Air & Speech Audio with Tymps - 36972, 01982 & 92155 completed Do FRAUSTO [address],[place] [address], [place], [address], [facility] - [facility] 11/08/2024 10:30:40 Imaging Results None recorded. Procedure Notes None recorded. Medical Equipment None Reported. Allergies No known drug allergies Medications Name Sig Start Date Stop Date Status Note LastModified by Organization Details LastModified Time penicilli n V potassium 500 mg tablet TAKE 1 TABLET BY MOUTH TWICE A DAY FOR 10 DAYS 11/08 completed Not Available Not Available Not Available clopidogr el 75 mg tablet TAKE 1 TABLET BY MOUTH EVERY DAY X18 DAYS 11/08 completed Not Available Not Available Not Available aspirin 81 mg tablet,de layed release TAKE 1 TABLET BY MOUTH EVERY DAY 11/08 completed Not Available Not Available Not Available cephalexi n 500 mg capsule 11/08 completed Medicatio n ID: [id number] Du ration Value: 10 Brand Name: cephalexi n Send Method: E-Prescri bed Subs Allowed: subs OK Specia l Instructi on: TAKE 1 CAPSULE BY MOUTH 3 TIMES A DAY Medic ationGene ricName: cephalexi n Not Available Not Available Not Available polymyxin B sulfate 10,000 unit-trim ethoprim 1 mg/mL eye drops 11/08 completed Medicatio n ID: [id number] Du ration Value: 10 Brand Name: polymyxin B sulf-trim ethoprim Send Method: E-Prescri bed Subs Allowed: subs OK Specia l Instructi on: INSTILL 1 DROP INTO AFFECTED EYE EVERY 4 HOURS FOR 7 TO 10 DAYS (FOR 2 DAYS AFTER SYMPTOMS RESOLVE) Medicatio nGenericN brandie: polymyxin B sulf-trim ethoprim Not Available Not Available Not Available sertralin e 25 mg tablet TAKE 1 TABLET (25 MG TOTAL) BY MOUTH DAILY. 11/08 completed Not Available Not Available Not Available lorazepam 1 mg tablet TAKE 1/2 TO 1 TABLET BY MOUTH EVERY DAY NEEDED 11/08 completed Not Available Not Available Not Available sertralin e 50 mg tablet TAKE 1 TABLET BY MOUTH EVERY DAY 11/08 completed Not Available Not Available Not Available Vitals Date Recorded Body height Body mass index (BMI) Body weight Provider Name and Address Organization Details Last Updated DateTime 11/08/2024 182.88 cm 26.4 kg/m2 50821.51 g Tatyana Mejia [place] - [facility] 11/08/2024 10:30:13 Social History Question Answer Notes LastModified by Organizat ion Details LastModified Time Tobacco Smoking Status Never Smoker ROMY MADDEN MD [address] [place] [address], [address], [place] - [facility] 11/08/2024 12:00:41 How Many Years Have You Consumed Alcohol? 10 Information not available 11/08/2024 What Type Of Net Manager Do You Use? None Information not available 11/08/2024 How Many Alcoholic Drinks Do You Consume Per Day On Average? 3 Information not available 11/08/2024 Do You Have Any Pets? Yes Information not available 11/08/2024 Are You Passively Exposed To Smoke? No Information not available 11/08/2024 Are There Any Smokers In Your House? No Information not available 11/08/2024 Sex: Unknown Functional Status Question Answer Note LastModified by Organization Details LastModified Time How many times per week do you consume alcohol? 1-2 times per week Information not available 11/08/2024 Do you use any illicit or recreational drugs? No Information not available 11/08/2024 Do you or have you ever used any other forms of tobacco or nicotine? No Information not available 11/08/2024 What is your level of alcohol consumption? Moderate Information not available 11/08/2024 What type of noise exposure are you exposed to? noExposureToExcessiveNoise Infor mation not available 11/08/2024 Mental Status None recorded. Family History Nothing Reported. Medical History Condition Response Allergies/Hayfever N Heart Problems N Anxiety Y Tonsil Infections N Emphysema N Migraines N Thyroid Problems N Glaucoma N Depression N COPD N Developmental Delay N Nasal or Sinus Problems Y Anemia N Immune System Disorder N Anesthesia Complications N Heart Attack (IA) N Other Skin Condition N Diabetes N Rhinitis N Bleeding Disorder N Food Allergy N Arthritis N Hearing Loss N Hyperlipidemia N Cancer N Stroke N Dementia N Nasal polyps N Asthma N Sleep Disorder N GERD/Reflux N High Cholesterol N Liver Disease N Headaches Y Fibromyalgia N Hypertension N Speech Delay N Kidney Disease N Past Encounters Encounter ID Performer Location Encounter Start Date Encounter Closed Date Diagnosis/Indication Diagnosis SNOMED-CT Code Diagnosis ICD10 Code Diagnosis IMO Codes Diagnosis Note [id number] ROMY MADDEN MD [facility] includes the [facility] on [address] [place] [address] 11/08/2024 10:12:39 11/08/2024 11:00:05 Abnormal auditory perception 17543503 H93.293 59233600 Audiologic al evaluation results: Right ear: Normal hearing with excellent word recognitio n. Left ear: Normal hearing with excellent word recognitio n. Tympanomet ry: Right Ear:Type A Left Ear:Type A Temporoman dibular joint disorder 43717133 M26.609 265637 Migraine 64366319 G43.90 9 81338 Health Concerns Section Related Observation LastModified by Organization Detai ls LastModified Time None Recorded Concern Status LastModified by Organization Details LastModified Time None Recorded Advance Directives Directive None Recorded Payers Insurance Date Sequence Insurance Name Policy Number Policy Crawford Covered Member ID Crawford Member ID Guarantor Name 11/08/2024 1 MARLA (PPO) [id number] 3 Ry Pino [id number] Ry Pino Notes Date Note Type Note Provider Name and Address Organization Details Recorded Time 5 text/htm l 29-year-old male presents today for evaluation of ear pressure. He was previously seen in our office in 2019 with normal audiogram and FOL and before that in 2016 for similar symptoms. 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
--- OUTSIDE RECORDS SUMMARY | 2024-12-26 16:13 | XMS_ITS | Clinical Summary ---
Author Organization [facility] Address [address] [place] [address] Phone Care Team Providers Care Assistant Women'S Soccer Coach Name Role Phone Trell Serrano MD Primary Care Provider [phone] Tona Barksdale FURNITURE ASSEMBLY SUPERVISOR Unavailable [phone] Douglas Rojas MD Unavailable [phone] Allergies No known active allergies Medications aspirin 81 MG EC tablet Take 81 mg by mouth daily. Active amitriptyline (ELAVIL) 10 MG tabletIndication s:Chronic daily headache Take 1 tablet (10 mg total) by mouth nightly at bedtime. 90 tablet 2 5 Active sertraline (ZOLOFT) 25 MG tabletIndication s:Depression, unspecified depression type,Anxiety state TAKE 1 TABLET (25 MG TOTAL) BY MOUTH DAILY. 90 tablet 5 Active Additional Information Patient not taking.Reported on 11/28/2024 Active Problems Problem Noted Date Diagnosed Date [...] weeks . VV . He lives in [facility] now. Restart buspar 5 mg bid. Encouraged [...] Reviewed side effects- information provided Referral to [facility] to be connected with a therapist Referral [...] Reviewed side effects- information provided Referral to [facility] to be connected with a therapist Referral to [facility] Tachycardia 02/12/2023 Assessment & Plan (06/09/2023 2:38 [...] & Plan (02/16/2023 4:38 PM EST): Positive Steph-Hallpike Advised to take meclizine as needed for [...] Attempt to obtain limited report from monitor #[phone] Fall precautions Hypophosphatemia 01/29/2023 04/16/2024 Assessment & [...] Encounters Date Type Department Care Team Description 11/28/2024 11:15 AM EDT Office Visit [facility] Division of Community Surgery [address] [place] [address] Jeaentte Mueller CNP Pilar cyst of scalp (Primary Dx) 11/28/2024 8:45 AM EDT - 11/28/2024 11:59 PM EDT Hospital Encounter [facility] Lab Pathology [address] [place] [address] Jeanette Mueller CNP Discharge Disposition: Home or Self Care 11/14/2024 Telephone [facility] [address] [address] Trell Serrano MD Appointment 11/09/2024 Refill [facility] [address] [facility] [address] [place] [address] Trell Serrano MD Medication Refill 09/25/2024 8:40 AM EDT - 09/25/2024 11:59 PM EDT Hospital [facility] [address] [place] [address] Tona Barksdale CNP Discharge Disposition: Home or Self Care 09/25/2024 Transcribe Orders [facility] [address] [place] [address] Tona Barksdale CNP Mixed hyperlipidemia (Primary Dx); Annual physical exam from Last 3 Months Immunizations Immunization Administration [...] Pressure 122/76 09/12/2024 7:58 AM EDT Pulse 87 11/28/2024 10:57 AM EDT Temperature 37.2 C (99 F) 11/28/2024 10:57 AM EDT Respiratory Rate 22 02/06/2023 8:00 PM EST Oxygen Saturation 98% 11/28/2024 10: 57 AM EDT Inhaled Oxygen Concentration - - Weight 86.1 kg (189 lb 12.8 oz) 09/12/2024 7:58 AM EDT Height 182 cm (5' 11.65 ) 09/12/2024 7:58 AM EDT Body Mass Index 25.99 09/12/2024 7:58 AM EDT Plan of Treatment Upcoming Encounters Date Type Department Care Team (Late st Contact Info) Description 03/28/2025 1:30 PM EST Office Visit [facility] Neurology [address] [place] [address] Edmar Severino MD [address] [facility]nd [place] [address] 05/14/2025 1:00 PM EDT Office Visit NEUROBEHAVIORAL [address], [address], [address] [place] [address] Rony Moore MD [address] [place] [address] [email or web address] Health Maintenance Due Date Last Done Comments INFLUENZA VACCINE (#1) 2024 7, 01/19/2016, 01/19/2016, Additional history exists COVID-19 VACCINE ( season) 2024 06/05/2021, 05/04/2020 DEPRESSION SCREENING 09/11/2025 09/11/2024, 04/25/19 24 Adult Td,Tdap Booster 07/10/2032 07/10/2022 , 09/20/2016, 05/29/2006 HIB VACCINES Completed 08/01/1995, 07/1994, 1994, Additional history exists MENINGOCOCCAL VACCINES (ACWY) Completed 04/19/2012, 10/06/2006 HEPATITIS C SCREENING Completed 07/13/2022 HIV ONE-TIME SCREENING (18-65 YEARS) Completed 07/13/2022 SMOKING STATUS SCREENING (Once After 26 Yrs) Completed 11/28/2024 HEPATITIS A VACCINES Aged Out No long [...] Procedure Name Priority Date/Time Associated Diagnosis Comments ANATOMIC PATHOLOGY Routine 11/28/2024 8: 54 AM EDT CHLAMYDIA TRACHOMATIS AND NEISSERIA GONORRHOEAE NUCLEIC ACID DETECTION Routine 09/25/2024 9:28 AM EDT Screening examination for STI HEPATITIS C ANTIBODY, QUALITATIVE Routine 07/13/2022 10:54 AM EDT Need for hepatitis C screening test from Last 3 Months or Most Recently Relevant to Health Maintenance Results * Anatomic Pathology (11/28/2024 8:54 AM EDT) [place] [address] Certified Physician'S Assistant: Aubree Galvan MD Surgical Pathology Report FINAL PATHOLOGIC DIAGNOSIS: A. RIGHT ANTERIOR SCALP CYST, EXCISION: Pilar cyst. B. LEFT LATERAL SCALP CYST, EXCISION: Pilar cyst. Electronicall y Signed Out By Jimmie Morin MD By his/her signature above, the pathologist listed as making the Final Diagnosis certifies that he/she has personally reviewed this case and confirmed or corrected the diagnosis. CLINICAL HISTORY Pilar cyst of scalp [L72.11] Right anterior scalp cyst and left lateral scalp cyst SPECIMENS SUBMITTED: A: RIGHT ANTERIOR SCALP CYST B: LEFT LATERAL SCALP CYST GROSS DESCRIPTION A. RIGHT ANTERIOR SCALP CYST: The specimen is received in formalin labeled with the patient's name, medical record number, and right anterior scalp , and consists of a disrupted portion of quintero-white soft tissue measuring 2.1 x 0.9 x 0.9 cm. No skin is grossly identified. The intact margin is inked blue. Sectioning reveals a cystic cut surface filled with friable brownyellow material. Lapel Padder sections are submitted in A1. B. LEFT LATERAL SCALP CYST: The specimen is received in formalin labeled with the patient's name, medical record number, and left lateral scalp , and consists of a disrupted portion of quintero-white soft tissue measuring 2.4 x 1.1 x 0.7 cm. No skin is grossly identified. The intact margin is inked blue. Sectioning reveals a cystic cut surface. Lapel Padder sections are submitted in B1. [facility] 11/30/2024 Grossing Staff: [facility] Some processing of this specimen was performed at [facility], [address] [place] [address], Certified Physician'S Assistant Aubree Galvan MD. Due to loss of elastic tension and/or tissue shrinkage in formalin, the clinical sizes of tissue specimens may be larger than those provided in this report. Patient Name: RY MORALES : 1995 (Age: 29) Sex: M Institution: [facility] Location: [facility] Date of Operation: 11/28/2024 Date of Reported: 12/02/2024 15:26 Ordered By: Jeanette Mueller CNP Copy To: [facility] Clinical History Pilar cyst of scalp [L72.11]Right anterior scalp cyst and left lateral scalp cyst [facility] Final Diagnosis A. RIGHT ANTERIOR SCALP CYST, EXCISION:Pilar cyst.B. LEFT LATERAL SCALP CYST, EXCISION: Pilar cyst. [facility] Gross Description A. RIGHT ANTERIOR SCALP CYST: The specimen is received in formalin labeled with the patient's name, medical record number, and right anterior scalp , and consists of a disrupted portion of quintero-white soft tissue measuring 2.1 x 0.9 x 0.9 cm. No skin is grossly identified. The intact margin is inked blue. Sectioning reveals a cystic cut surface filled with friable brownyellow material. Lapel Padder sections are submitted in A1.B. LEFT LATERAL SCALP CYST: The specimen is received in formalin labeled with the patient's name, medical record number, and left lateral scalp , and consists of a disrupted portion of quintero-white soft tissue measuring 2.4 x 1.1 x 0.7 cm. No skin is grossly identified. The intact margin is inked blue. Sectioning reveals a cystic cut surface. Lapel Padder sections are submitted in B1. [facility] Conversion Type 11/28/2024 8 :54 AM EDT 11/29/2024 8:54 AM EDT Jeanette Mueller CNP PATHOLOGY ORDERABLES E dited Result - Final Performing Organization Address City/State/[facility] Co de Phone Number [place] [id number], [facility] [phone] * Chlamydia trachomatis and Neisseria gonorrhoeae Nucleic Acid Amplification (09/25/2024 9:28 AM EDT) CHLAMYDIA TRACHOMATIS Not Detected Not Detected [facility] NEISERIA GONORRHOEAE Not Detected Not Detected [facility] SPECIMEN TYPE URINE [facility] Urine (Urine) 09/25/2024 9:2 8 AM EDT 09/25/2024 9:49 AM EDT us Tona Barksdale FURNITURE ASSEMBLY SUPERVISOR NON CULTURE MICROBI OLOGY Final Result [facility] [address] [place] [address] * Hepatitis C antibody, qualitative (07/13/2022 10:54 AM EDT) HCV ANTIBODY Negative Negative [facility] Blood 07/13/2022 10:5 4 AM EDT 07/13/2022 1:42 PM EDT us Trell Serrano MD LAB BLOOD ORDERABLES Final R esult [address] [address], [facility] [phone] from Last 3 Months or Most Recently Relevant to Health Maintenance Insurance [facility] OUT OF [facility] PPO BLUE CROSS OUT OF STATE PPO BLUE CROSS OUT OF STATE PPO BLUE CROSS OUT OF STATE PPO BLUE CROSS OUT OF STATE PPO BLUE CROSS OUT OF STATE PPO Advance Directives For more information, please contact: [phone] (9AM - 5PM [place], Monday-Monday) Documents on File Type Date Recorded Patient Lapel Padder Expl anation Healthcare Proxy 01/31/2023 3:10 PM * Full Code (Latest Code Status on File) Date Activated Date Inactivated Comments 01/29/2023 3:44 PM Question Answer Comments Code Status Confirmed With: Patient Code Status Communicated To: Inpatient Attending Care Teams Assistant Women'S Soccer Coach Relationship Specialty Start Date End Date Trell Serrano MD [address] [place] [phone] PCP - General Family Medicine 03/07/23 Tona Barksdale CNP [address] [place] [address] [address] [place] [address] Nurse Practitioner 06/08/23 Douglas Rojas MD [address] [place] [address] [address] [place] [address] Cardiology 06/08/23 Additional Source Comments The information contained in this document represents components of the legal health record. It is not the complete legal health record.[facility]
--- OUTSIDE RECORDS SUMMARY | 2024-12-26 16:13 | XMS_ITS | Encounter Summary ---
Author Organization [facility] Address [address] [place] [address] Phone Care Team Providers Care Newspaper Stuffer Name Role Phone Trell Serrano MD Primary Care Provider Tona Barksdale [facility] Unavailable [phone] Douglas Rojas MD Unavailable [phone] Reason for Visit * Reason Onset Date Comments Appointment 11/14/2024 Encounter Details Date Type Department Care Team (Late st Contact Info) Description 11/14/2024 Telephone [facility] [address] [place] [address] Trell Serrano MD [address] [place] [address] [email or web address] Appointment Social History Tobacco Use Types Packs/Day Years [...] encounter Progress Notes * Freida Handley - 11/14/2024 3:19 PM EDT LVM schedule follow up go over medication management [id number] 11/14/24 documented in this encounter Plan of Treatment Upcoming Encounters Date Type Department Care Team (Late st Contact Info) Description 03/28/2025 1:30 PM EST Office Visit [facility] Neurology [address] [place] [address] Edmar Severino MD [address] [place] [address] 05/14/2025 1:00 PM EDT Office Visit NEUROBEHAVIORAL [address] 3[address], [address] [place] [address] Rony Moore MD [address] [place] [address] [email or web address] documented as of this encounter Visit Diagnoses Not on filedocumented in this encounter Additional Health Concerns Assessment Noted Time PHQ-9 Depression Total Score: 5 04/25/19 24 8:35 AM EST PHQ-2 Depression Total Score: 1 09/12/19 1:37 PM EDT documented as of this encounter Care Teams Newspaper Stuffer Relationship Specialty Start Date End Date Trell Serrano MD [address] [address] PCP - General Family Medicine 03/07/23 Tona Barksdale CNP [address] [address] Nurse Practitioner 06/08/23 Douglas Rojas MD [address] [place] [address] Cardiology 06/08/23 documented as of this encounter Additional Source Comments The information contained in this document represents components of the legal health record. It is not the complete legal health record.[facility]
--- OUTSIDE RECORDS SUMMARY | 2024-12-26 16:13 | XMS_ITS | Encounter Summary ---
Author Organization [facility] Address [address] [place] [address] Phone Care Team Providers Care Resident Services Supervisor Name Role Phone Trell Serrano MD Primary Care Provider [phone] Trell Serrano MD Primary Care Provider [phone] Tona Barksdale CNP Unavailable [phone] Douglas Rojas MD Unavailable [phone] Encounter Details Date Type Department Care Team (Late st Contact Info) Description 08/26/2022 Ancillary Orders [facility] [address] [place] [address] Giselle Flor MD [email or web address] Social History Tobacco Use Types Packs/Day Years [...] Description 03/28/2025 1:30 PM EST Office Visit [facility] Neurology [address] [place] [address] Edmar Severino MD [address] [facility], 2nd [place] [address] [email or web address] 05/14/2025 1:00 PM EDT Office Visit NEUROBEHAVIORAL [address], 3rd Floor, [address] [place] [address] Rony Moore MD [address] [place] [address] [email or web address] documented as of this encounter Visit Diagnoses Not on filedocumented in this encounter Additional Health Concerns Assessment Noted Time PHQ-2 Depression Total Score: 0 08/13/19 23 1:26 PM EDT documented as of this encounter Care Teams Resident Services Supervisor Relationship Specialty Start Date End Date Trell Serrano MD [address] [address] [email or web address] PCP - General Family Medicine 04/19/22 03/06/23 Trell Serrano MD [address] [phone] [email or web address] PCP - General Family Medicine 03/07/23 Tona Barksdale CNP 2 [facility] [address] [place] [address] [email or web address] Nurse Practitioner 06/08/23 Douglas Rojas MD [address], [address] [place] [address] [email or web address] Cardiology 06/08/23 documented as of this encounter Additional Source Comments The information contained in this document represents components of the legal health record. It is not the complete legal health record.[facility]
--- OUTSIDE RECORDS SUMMARY | 2024-12-26 16:13 | XMS_ITS | Clinical Summary ---
Author Organization [facility] Address [address] [place] [address] Phone Care Team Providers Care Slipper Maker Name Role Phone Abraham Loredo MD Primary Care Provider [phone] Surgical History Surgery Date Site/Laterality Comments KNEE ARTHROSCOPY W/ MENISCAL REPAIR 2011 PROCEDURE: CT ARTHROSCOPY KNEE W/MENISCUS RPR MEDIAL/LATERAL; COMMENT: R [...] 5 Years) and At-Risk Patients (6 to 49 Years) (1 of 2 - PCV) 2013 HPV Vaccines (1 - 3-dose SCDM series) 2021 Depression Screening 02/28/2024 HIV Screening 04/19/2024 Social Influencers of Health Screening 04/19/2024 COVID-19 Vaccine (3 - season) 2024 06/05/2021, 05/04/2020 Influenza Vaccine (#1) 2024 7, 01/19/2016, 03/02/2015, Additional history exists Cholesterol Screening (Lipid Panel) 04/16/2029 04/16/2024 DTaP,Tdap,and Td Vaccines (9 - Td or Tdap) 07/10/2032 07/10/2022, 09/20/2016, 05/29/2006, Additional history exists RSV Immunization Adult Patients (1 - 1-dose 75+ series) 2069 Hepatitis B Vaccines Completed 01/31/1995, 1994, 1994 HIB Vaccines Completed 08/01/1995, 05/1995, 1994, Additional history exists IPV Vaccines Completed 05/03/1999, 05/1995, 1994, Additional history exists MMR Vaccines Completed 05/03/1999, 08/01/1995 Varicella Vaccines Completed 02/24/2009, 05/05/1995 Meningococcal ACWY Vaccine Completed 04/19/2012, Hepatitis C Screening Completed 07/13/2022 Hepatitis A Vaccines Aged Out No long er eligible based on patient's age to complete this topic Meningococcal B Vaccine Aged Out No l onger eligible based on patient's age to complete this topic RSV Immunization Patients Under 20 months Aged Out No longer eligible based on patient's age to complete this [place] [id number] [facility] Care Teams Slipper Maker Relationship Specialty Start Date End Date Abraham Loredo MD [facility] [address] [place] [address] [address] [place] [address] PCP - General Internal Medicine 05/31/24
--- OUTSIDE RECORDS SUMMARY | 2024-12-26 16:13 | XMS_ITS | Encounter Summary ---
Author Organization [facility] Address [address] [place] [address] Phone Care Team Providers Care Teacher Specialist Name Role Phone Trell Serrano MD Primary Care Provider [phone] Trell Serrano MD Primary Care Provider [phone] Tona Barksdale CNP Unavailable [phone] Douglas Rojas MD Unavailable [phone] Encounter Details Date Type Department Care Team (Late st Contact Info) Description 09/02/2022 Ancillary Orders [facility] [address] [place] [address] Giselle Flor MD [email or web address] Soft tissue mass Social History Tobacco Use [...] 03/28/2025 1:30 PM EST Office Visit [facility] Neurology [address] [place] [address] Edmar Severino MD [address] [facility], 2nd [place] [address] 05/14/2025 1:00 PM EDT Office Visit [address], 3rd Floor, [address] [place] [address] Rony Moore MD [address] [place] [address] [email or web address] documented as of this encounter Results * [...] the right inguinal region. Giselle Flor MD [facility] US EXTREMITY Edited Result - Final documented in this encounter Visit Diagnoses Diagnosis Soft tissue mass Disorders of soft tissue, unspecified Soft tissue mass Disorders of soft tissue, unspecified documented in this encounter Additional Health Concerns Assessment Noted Time PHQ-2 Depression Total Score: 0 08/13/19 23 1:26 PM EDT documented as of this encounter Care Teams Teacher Specialist Relationship Specialty Start Date End Date Trell Serrano MD [address] [facility] [address] [place] [address] [email or web address] PCP - General Family Medicine 04/19/22 03/06/23 Trell Serrano MD 2 [facility] [address] [place] [address] [email or web address] PCP - General Family Medicine 03/07/23 Tona Barksdale CNP [address] [address] [email or web address] Nurse Practitioner 06/08/23 Douglas Rojas MD [address] [place] [address], [address] [address] Cardiology 06/08/23 documented as of this encounter Additional Source Comments The information contained in this document represents components of the legal health record. It is not the complete legal health record.[facility]
--- OUTSIDE RECORDS SUMMARY | 2024-12-26 16:13 | XMS_ITS | Encounter Summary ---
Author Organization [facility] Address [address] [place] [address] Phone Care Team Providers Care Remote Sensing Engineer Name Role Phone Trell Serrano MD Primary Care Provider [phone] Trell Serrano MD Primary Care Provider [phone] Tona Barksdale CNP Unavailable [phone] Douglas Rojas MD Unavailable [phone] Encounter Details Date Type Department Care Team (Late st Contact Info) Description 08/26/2022 Ancillary Orders [facility] [address] [place] [address] Giselle Flor MD [email or web address] Soft tissue mass Social History Tobacco Use [...] 03/28/2025 1:30 PM EST Office Visit [facility] Neurology [address] [place] [address] Edmar Severino MD 22 [facility], 2nd [place] [address] [email or web address] 05/14/2025 1:00 PM EDT Office Visit NEUROBEHAVIORAL [address], 3rd Floor, [address] [place] [address] Rony Moore MD [address] [place] [address] [email or web address] documented as of this encounter Visit Diagnoses Diagnosis Soft tissue mass Disorders of soft tissue, unspecified documented in this encounter Additional Health Concerns Assessment Noted Time PHQ-2 Depression Total Score: 0 08/13/19 23 1:26 PM EDT documented as of this encounter Care Teams Remote Sensing Engineer Relationship Specialty Start Date End Date Trell Serrano MD [address] [employer] [address] [address] [email or web address] PCP - General Family Medicine 04/19/22 03/06/23 Trell Serrano MD [address] [employer] [address] [place] [address] [email or web address] PCP - General Family Medicine 03/07/23 Tona Barksdale CNP [address] [employer] [address] [address] [email or web address] Nurse Practitioner 06/08/23 Douglas Rojas MD [address] [place] [address], [facility] [address] [place] [address] [email or web address] Cardiology 06/08/23 documented as of this encounter Additional Source Comments The information contained in this document represents components of the legal health record. It is not the complete legal health record.[facility]
== END 2024-12-26 13:43 | disposition home or self-care (01) ==
LOC: HO.HCS 13:17
DX: R00.1 Bradycardia, unspecified (principal); R42 Dizziness and giddiness
CPT/HCPCS: 99213

== ENCOUNTER 2025-01-14 11:29 | Outpatient (AMB) | payer BC, SELFPAY ==
[2025-01-14 11:33] VITALS: BP 112/82; PULSE 87; O2SAT 98; BMI 26.9
--- NOTE | 2025-01-14 11:33 | MHC.OFFVIS ---
Vital Signs 01/14/25 11:33 Height 6 ft Weight 198 lb 4 oz BMI 26.9 BP 112/82 Blood Pressure Location Rt brachial Position Sitting Pulse 87 Pulse Source Pulse Oximeter Pulse Oximetry (%) 98 Oxygen Delivery Method Room Air Intake Visit Reasons: 2mnth OK PER MD Intake Note: Follow up Headache, Snoring and hypersomnia, dizziness and giddiness Superintendent Laundry Required: No Accompanied by: Self / Same As Patient Allergies No Known Allergies Allergy (Verified 01/14/25 11:33) Medication List - Last Reconciled 01/14/25 by Jennifer Bartlett MD baclofen 5 mg PO BEDTIME HPI Comments Details: 29y/o male comes for neurological follow up. His CTA neck from 10/04 24 did not show any areas of dissection or irregularity CTA in June 2024 showed suspicion of subtle dissection in right vertebral artery MRI Brain was normal MRI C spine was normal .He did not tolerate amitriptyline He is very concerned about suspicion of dissection in the right Vertebral artery which was cleared in Sep 2024 repeat CTA He still has pain in the right posterior neck with tingling episodically. It started after PT massaged the muscle 1 week ago.Headaches are less.He c/o pain in right TMJ area. He did not have his sleep study yet. 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 He had numbness in neck and rios UE - CT showed dissection .He was on Plavix for 3 weeks and on aspirin for 3 mths. He sees neurovascular specialist at [facility]. For his dizziness ( started 18 mths ago ) he had extensive cardiac evaluation . His first episode was palpitations and he thought it was a panic attack . He describes the dizziness as his body moving . He denies syncope has some lightheadedness.He has on and off tinnitus . he feels his ears are full , was seen by ENT but no diagnosis. The dizziness is worse when he drives, moves his head, when he bends and has headaches. He describes the headaches are band in the forehead. No nausea. He has light sensitivity . He has visual tracking issues.No recent head injury . He has headaches almost everyday - takes ibuprofen on and off tylenol .He sees flashes of light during headaches. He also reports excessive daytime fatigue. He does not sleep well. He snores and has excessive daytime sleepiness. [facility] Medical History (Updated 01/14/25 @ 12:02 by Jennifer Bartlett MD) Cervicalgia Chronic headaches Hypersomnia Snoring Family History Mother A-fib Maternal Grandmother A-fib Social History Alcohol intake: current Alcohol intake frequency: a few times a week Patient Tobacco Use Status: Never used Tobacco Physical Exam Vital Signs: Last Vital Signs Pulse 87 01/14/25 11:33 BP 112/82 01/14/25 11:33 Pulse Ox 98 01/14/25 11:33 Oxygen Delivery Method Room Air 01/14/25 11:33 BMI result Body Mass Index 26.9 Const General: cooperative, healthy appearing, comfortable, no acute distress and anxious Nutritional Appearance: average body habitus Orientation/consciousness: patient oriented x3 Eyes Pupils: Equal, round and reactive pupils present Neck Neck: Yes no meningeal signs Neuro Other: tightness and tenderness in the right upper semispinalis General: patient oriented x3, gait normal, tone normal, moves all extremities, no meningeal signs and no focal motor deficits Cranial nerves: Yes Facial sensation intact/muscles of mastication intact, Yes Equal, round and reactive pupils present, Yes Bilaterally intact EOM present, Yes Nystagmus not present, Yes Normal facial strength present, Yes Midline tongue present, Yes Symmetric palate elevation present and Yes Ability to bilaterally elevate shoulders present Cognition (Neuro): normal cognition Gait exam (Neuro): Normal gait present Motor exam (neuro): 5/5 motor strength present throughout Coordination: [id number]-[id number]-[id number] test normal Assessment & Plan Assessment & Plan (1) Cervicalgia: Comment: right semispinalis Code(s): M54.2 - Cervicalgia Category: Medical (2) Dizziness: Comment: ? vertigo BPV Vestibular migraine Code(s): R42 - Dizziness and giddiness Category: Medical (3) Snoring: Code(s): R06.83 - Snoring Category: Medical (4) Hypersomnia: Code(s): G47.10 - Hypersomnia, unspecified Category: Medical (5) Chronic headaches: Comment: cervicogenic , vestibular migraine Code(s): R51.9 - Headache, unspecified; G89.29 - Other chronic pain Category: Medical Plan MRI reviewed continue PT for neck Patient requesting a repeat CTA neck Home sleep test to r/o sleep apnea.- next week Orders: Orders CT angio neck Today R42 - Dizziness and giddiness Medications: New baclofen 5 mg PO BEDTIME 30 tabs 0RF Coding Level of Care Code Est Pt Level 4 (95607) Complex EM visit Add On G2211 Diagnoses Cervicalgia M54.2 Dizziness R42 Snoring R06.83 Hypersomnia G47.10 Chronic headaches R51.9; G89.29
--- OUTSIDE RECORDS SUMMARY | 2025-01-15 02:19 | XMS_ITS | Continuity of Care Document ---
Author Organization [place] [facility], [facility] Address [address] [place] [address] Care Team Providers Care Renewable Energy Trader Name Role Phone YOANDY ESTES Primary Care Provider [phone] Assessment Encounter Date Assessment Date Assessment LastModified [...] MRI which was unremarkable. All questions answered [email or web address] Not available 11/08/2024 12:06:15 Plan of Treatment [...] Organization Details Recorded Time Otitic barotraum a 38066189 Active 2016 Otitic barotraum a, initial encounter ; Note: Date Diagnosed : 05/19/2016 10:59 AM (T70.0XXA ) Not Available [facility] 4 02:58:03 Bilateral disorder of Eustachia n tubes 79080902362 62460 Active 2016 Other specified disorders of Eustachia n tube, bilateral ; Note: Date Diagnosed : 05/19/2016 10:59 AM (H69.83) Not Available [facility] 4 02:58:03 Bilateral temporoma ndibular joint pain 07024779919 141186 Active 2016 Arthralgi a of bilateral temporoma ndibular joint; Note: Date Diagnosed : 05/19/2016 10:59 AM (M26.623) Not Available [facility] 4 02:58:00 Bilateral earache 285866465 Active 2019 Otalgia, bilateral ; Note: Date Diagnosed : 03/26/2019 10:47 AM (H92.03) Not Available [facility] 4 02:58:02 Otalgia of right ear 4228995460 Active 2019 Otalgia, right ear; Note: Date Diagnosed : 03/26/2019 10:35 AM (H92.01) Not Available [facility] 4 02:58:00 Abnormal auditory perceptio n 45559977 Active 2019 Other abnormal auditory perceptio ns, bilateral ; Note: Date Diagnosed : 03/26/2019 10:49 AM (H93.293) Not Available [facility] 4 02:58:02 Abnormal auditory perceptio n 33742075 Active 2024 REJI TAM, [address] [place] [facility], [place], [address] , [place] - [facility] 5 10:32:12 Temporoma ndibular joint disorder 58862201 Active 2024 ROMY MADDEN MD [address] [facility],[place] [address], [place], [address] , [place] - [facility] 5 12:02:45 Migraine 98199457 Active 2024 ROMY MADDEN MD [address] [facility],[place] [address], [place], [address] , [place] - [facility] 5 12:03:00 Problem Notes None recorded. Procedures Surgical History Date Name Laterality Status Provider Name and Address Organization Details Recorded Time 11/08/2024 Air & Speech Audio with Tymps - 92574, 98669 & 29776 completed REJI TAM, Do [address] [facility],[place] [facility], [place], [address], [place] - [facility] 11/08/2024 10:30:40 Imaging Results None recorded. Procedure [...] mg capsule 11/08 completed Medicatio n ID: [id number] Du ration Value: 10 Brand Name: cephalexi n Send Method: E-Prescri bed Subs Allowed: subs OK Specia l Instructi on: TAKE 1 CAPSULE BY MOUTH 3 TIMES A DAY Medic ationGene ricName: cephalexi n Not Available Not Available Not Available polymyxin B sulfate 10,000 unit-trim ethoprim 1 mg/mL eye drops 11/08 completed Medicatio n ID: [id number] Du ration Value: 10 Brand Name: polymyxin [...] Updated DateTime 11/08/2024 182.88 cm 26.4 kg/m2 82144.51 g Tatyana Mejia [place] [facility] 11/08/2024 10:30:13 Social History Question Answer Notes LastModified by Organizat ion Details LastModified Time Tobacco Smoking Status Never Smoker ROMY MADDEN MD [address] [place] [address], [address], [place] - [facility] 11/08/2024 12:00:41 How Many Years Have You Consumed Alcohol? 10 Information not available 11/08/2024 What Type Of Rewinder Do You Use? None Information not available [...] Emphysema N Migraines N Thyroid Problems N COPD N Depression N Developmental Delay N Glaucoma N Nasal or Sinus Problems Y Anemia N Immune System Disorder N Anesthesia Complications N Heart Attack (OR) N Other Skin Condition N Diabetes N Rhinitis N Bleeding Disorder N Food Allergy N Hearing Loss N Arthritis N Hyperlipidemia N Cancer N Stroke N Dementia N Nasal polyps N Asthma N Sleep Disorder N High Cholesterol N GERD/Reflux N Liver Disease N Headaches Y Fibromyalgia N Hypertension N Speech Delay N Kidney Disease N Past Encounters Encounter ID Performer Location Encounter Start Date Encounter Closed Date Diagnosis/Indication Diagnosis SNOMED-CT Code Diagnosis ICD10 Code Diagnosis IMO Codes Diagnosis Note [id number] ROMY MADDEN MD [facility] on [address] [place] [address] 11/08/2024 10:12:39 11/08/2024 11:00:05 Abnormal auditory perception 93593569 H93.293 [id number] Audiologic al evaluation results: Right ear: Normal hearing with excellent word recognitio n. Left ear: Normal hearing with excellent word recognitio n. Tympanomet ry: Right Ear:Type A Left Ear:Type A Temporoman dibular joint disorder 96247979 M26.609 971924 Migraine 22964150 G43.90 9 43343 Health Concerns Section Related Observation LastModified by Organization Detai ls LastModified Time None Recorded Concern Status LastModified by Organization Details LastModified Time None Recorded Payers Encounter Date Sequence Insurance Name Policy Number Policy Crawford Covered Member ID Crawford Member ID Guarantor Name 11/08/2024 1 GUILLERMINA-CHRISTOPHE (PPO) [id number] 3 [employer] Pino [id number] Pino Notes Date Note Type [...] 6-7 hours per night ROMY MADDEN MD [address] [place] [address], [place], [address], [place] - [facility] 11/08/2024 12:06:47
--- OUTSIDE RECORDS SUMMARY | 2025-01-15 02:19 | XMS_ITS | Data Portability ---
Author Organization [place] - [facility], Allergy Address [address] [address] Care Team Providers Care Order Worker Name Role Phone YOANDY ESTES Primary Care Provider Assessment Encounter Date Assessment [...] Organization Details Recorded Time Otitic barotraum a 72640228 Active 2016 Otitic barotraum a, initial encounter ; Note: Date Diagnosed : 05/19/2016 10:59 AM (T70.0XXA ) Not Available [facility] 4 02:58:03 Bilateral disorder of Eustachia n tubes 82936521244 05015 Active 2016 Other specified disorders of Eustachia n tube, bilateral ; Note: Date Diagnosed : 05/19/2016 10:59 AM (H69.83) Not Available [facility] 4 02:58:03 Bilateral temporoma ndibular joint pain 95227010521 681588 Active 2016 Arthralgi a of bilateral temporoma ndibular joint; Note: Date Diagnosed : 05/19/2016 10:59 AM (M26.623) Not Available [facility] 4 02:58:00 Bilateral earache 093432922 Active 2019 Otalgia, bilateral ; Note: Date Diagnosed : 03/26/2019 10:47 AM (H92.03) Not Available [facility] 4 02:58:02 Otalgia of right ear 1414703337 Active 2019 Otalgia, right ear; Note: Date Diagnosed : 03/26/2019 10:35 AM (H92.01) Not Available [facility] 4 02:58:00 Abnormal auditory perceptio n 65297196 Active 2019 Other abnormal auditory perceptio ns, bilateral ; Note: Date Diagnosed : 03/26/2019 10:49 AM (H93.293) Not Available [facility] 4 02:58:02 Abnormal auditory perceptio n 05137107 Active 2024 [address] FRA[address]O [address],[place] [facility], [place], [address] , [place] - [facility] [place] 5 10:32:12 Temporoma ndibular joint disorder 49745322 Active 2024 ROMY MADDEN MD [address] [facility] [place] [facility], [place], [address] , [place] - [facility] [place] 12:02:45 Migraine 61889225 Active 2024 ROMY MADDEN MD [address] [place] [address], [place], [address] , [place] - [facility] [place] 12:03:00 Problem Notes None recorded. Procedures Surgical History Date Name Laterality Status Provider Name and Address Organization Details Recorded Time 11/08/2024 Air & Speech Audio with Tymps - 63401, 41592 & 79448 completed Do FRAUSTO [address], [place], [address], [facility] - [facility] [place] 11/08/2024 10:30:40 Imaging Results None recorded. Procedure [...] mg capsule 11/08 completed Medicatio n ID: [id number] Du ration Value: 10 Brand Name: cephalexi n Send Method: E-Prescri bed Subs Allowed: subs OK Specia l Instructi on: TAKE 1 CAPSULE BY MOUTH 3 TIMES A DAY Medic ationGene ricName: cephalexi n Not Available Not Available Not Available polymyxin B sulfate 10,000 unit-trim ethoprim 1 mg/mL eye drops 11/08 completed Medicatio n ID: [id number] Du ration Value: 10 Brand Name: polymyxin [...] Updated DateTime 11/08/2024 182.88 cm 26.4 kg/m2 56874.51 g Tatyana Mejia [place] - [facility] 11/08/2024 10:30:13 Social History Question Answer Notes LastModified by Organizat ion Details LastModified Time Tobacco Smoking Status Never Smoker ROMY MADDEN MD [address] [place] [address], [address], [place] - [facility] 11/08/2024 12:00:41 How Many Years Have You Consumed Alcohol? 10 Information not available 11/08/2024 What Type Of Patient Care Coordinator Do You Use? None Information not available [...] Emphysema N Migraines N Thyroid Problems N Depression N COPD N Developmental Delay N Glaucoma N Nasal or Sinus Problems Y Anemia N Immune System Disorder N Anesthesia Complications N Heart Attack (DC) N Other Skin Condition N Diabetes N [...] ICD10 Code Diagnosis IMO Codes Diagnosis Note [id number] ROMY MADDEN MD [facility] on [address] [place] [address] 11/08/2024 10:12:39 11/08/2024 11:00:05 Abnormal auditory perception 99596576 H93.293 28957936 Audiologic al evaluation results: Right ear: Normal hearing with excellent word recognitio n. Left ear: Normal hearing with excellent word recognitio n. Tympanomet ry: Right Ear:Type A Left Ear:Type A Temporoman dibular joint disorder 28340053 M26.609 116687 Migraine 03265991 G43.90 9 24580 Health Concerns Section Related Observation LastModified by Organization Detai ls LastModified Time None Recorded Concern Status LastModified by Organization Details LastModified Time None Recorded Advance Directives Directive None Recorded Payers Insurance Date Sequence Insurance Name Policy Number Policy Crawford Covered Member ID Crawford Member ID Guarantor Name 11/08/2024 1 MARLA (PPO) [id number] 3 Ry Pino [id number] Ry Pino Notes Date Note Type [...] 6-7 hours per night ROMY MADDEN MD [address] [place] [address], [place], [address], [facility] - [facility] 11/08/2024 12:06:47
== END 2025-01-14 14:41 | disposition home or self-care (01) ==
LOC: HO.HSMS 11:29
PROVIDERS: Visit Provider Psychiatry & Neurology Neurology
DX: M54.2 Cervicalgia (principal); R42 Dizziness and giddiness; R06.83 Snoring; G47.10 Hypersomnia, unspecified; R51.9 Headache, unspecified; G89.29 Other chronic pain
CPT/HCPCS: 99214

== ENCOUNTER → 2025-01-21 12:54 | Outpatient (REF) | payer BC, SELFPAY ==
--- OUTSIDE RECORDS SUMMARY | 2025-01-21 16:37 | XMS_ITS | Data Portability ---
Author Organization [place] - [facility], Allergy Address [address] [address] Care Team Providers Care Knot Picker Cloth Name Role Phone YOANDY ESTES Primary Care [...] Organization Details Recorded Time Otitic barotraum a 64480452 Active 2016 Otitic barotraum a, initial encounter ; Note: Date Diagnosed : 05/19/2016 10:59 AM (T70.0XXA ) Not Available [facility] 4 02:58:03 Bilateral disorder of Eustachia n tubes 77578295731 44432 Active 2016 Other specified disorders of Eustachia n tube, bilateral ; Note: Date Diagnosed : 05/19/2016 10:59 AM (H69.83) Not Available [facility] 4 02:58:03 Bilateral temporoma ndibular joint pain 64451031274 712903 Active 2016 Arthralgi a of bilateral temporoma ndibular joint; Note: Date Diagnosed : 05/19/2016 10:59 AM (M26.623) Not Available [facility] 4 02:58:00 Bilateral earache 128152431 Active 2019 Otalgia, bilateral ; Note: Date Diagnosed : 03/26/2019 10:47 AM (H92.03) Not Available [facility] 4 02:58:02 Otalgia of right ear 4301904732 Active 2019 Otalgia, right ear; Note: Date Diagnosed : 03/26/2019 10:35 AM (H92.01) Not Available [facility] 4 02:58:00 Abnormal auditory perceptio n 39445178 Active 2019 Other abnormal auditory perceptio ns, bilateral ; Note: Date Diagnosed : 03/26/2019 10:49 AM (H93.293) Not Available [facility] 4 02:58:02 Abnormal auditory perceptio n 64942897 Active 2024 Do FRA[address]O [address],[place] [facility], [place], [address] , [place] - [facility] [place] 5 10:32:12 Temporoma ndibular joint disorder 69200534 Active 2024 ROMY MADDEN MD [address] [facility] [place] [facility], [place], [address] , [place] - [facility] [place] 12:02:45 Migraine 16111569 Active 2024 ROMY MADDEN MD [address] [place] [address], [place], [address] , [place] - [facility] [place] 12:03:00 Problem Notes None recorded. Procedures Surgical History Date Name Laterality Status Provider Name and Address Organization Details Recorded Time 11/08/2024 Air & Speech Audio with Tymps - 84825, 92028 & 27939 completed Do FRAUSTO [address], [place], [address], [facility] - [facility] [place] 11/08/2024 10:30:40 Imaging Results None recorded. [...] mg capsule 11/08 completed Medicatio n ID: [id number] Du ration Value: 10 Brand Name: cephalexi n Send Method: E-Prescri bed Subs Allowed: subs OK Specia l Instructi on: TAKE 1 CAPSULE BY MOUTH 3 TIMES A DAY Medic ationGene ricName: cephalexi n Not Available Not Available Not Available polymyxin B sulfate 10,000 unit-trim ethoprim 1 mg/mL eye drops 11/08 completed Medicatio n ID: [id number] Du ration Value: 10 Brand Name: polymyxin [...] Updated DateTime 11/08/2024 182.88 cm 26.4 kg/m2 69973.51 g Tatyana Mejia [place] - [facility] 11/08/2024 10:30:13 Social History Question Answer Notes LastModified by Organizat ion Details LastModified Time Tobacco Smoking Status Never Smoker ROMY MADDEN MD [address] [place] [address], [address], [place] - [facility] 11/08/2024 12:00:41 How Many Years Have You Consumed Alcohol? 10 Information not available 11/08/2024 What Type Of Cotton Chopper Do You Use? None Information not available [...] Migraines N Thyroid Problems N Glaucoma N Developmental Delay N Depression N COPD N Nasal or Sinus Problems Y Anemia N Immune System Disorder N Anesthesia Complications N Heart Attack (LA) N Other Skin Condition N Diabetes N [...] ICD10 Code Diagnosis IMO Codes Diagnosis Note [id number] ROMY MADDEN MD [facility] on [address] [place] [address] 11/08/2024 10:12:39 11/08/2024 11:00:05 Abnormal auditory perception 02783831 H93.293 38851126 Audiologic al evaluation results: Right ear: Normal hearing with excellent word recognitio n. Left ear: Normal hearing with excellent word recognitio n. Tympanomet ry: Right Ear:Type A Left Ear:Type A Temporoman dibular joint disorder 52438640 M26.609 726602 Migraine 71512084 G43.90 9 12130 Health Concerns Section Related Observation LastModified by Organization Detai ls LastModified Time None Recorded Concern Status LastModified by Organization Details LastModified Time None Recorded Advance Directives Directive None Recorded Payers Insurance Date Sequence Insurance Name Policy Number Policy Crawford Covered Member ID Crawford Member ID Guarantor Name 11/08/2024 1 MARLA (PPO) [id number] 3 Ry Pino [id number] Ry Pino Notes Date Note Type [...] 6-7 hours per night ROMY MADDEN MD [address] [place] [address], [place], [address], [facility] - [facility] 11/08/2024 12:06:47
--- OUTSIDE RECORDS SUMMARY | 2025-01-21 16:37 | XMS_ITS | Encounter Summary ---
Author Organization [facility] Address [address] [facility] [address] [place] [address] Phone Care Team Providers Care Certified Credit Counselor Name Role Phone Trell Serrano MD Primary Care Provider [phone] Trell Serrano MD Primary Care Provider + [phone] Tona Barksdale CNP Unavailable [phone] Douglas Rojas MD Unavailable [phone] Encounter Details Date Type Department Care Team (Late st Contact Info) Description 02/06/2023 Procedure Pass [facility], Ct Scan - [address] [address] Social History Tobacco Use Types Packs/Day Years [...] 4:45 PM EST Chris Cannon RN * [place] Suicide Severity Rating Scale (Screener/Recent Self-Report) Question Answer Date of Assessment Author 1. Wish to be (Past 1 Month) No 02/06/2023 4:45 PM EST Chris Cannon RN 2. Non-Specific Active Suicidal Thoughts (Past 1 Month) No 02/06/2023 4:45 PM EST Chris Cannon RN 6. Suicidal Behavior (Lifetime) No 02/06/2023 4:45 PM EST Chris Cannon RN documented as of this encounter Plan of Treatment Upcoming Encounters Date Type Department Care Team (Late st Contact Info) Description 02/14/2025 7:15 AM EST Office Visit [facility] [address] [place] [address], [address] [place] [address] Yifan Forrester DO [address] [place] [address] [place] [address] 03/28/2025 1:30 PM EST Office Visit [facility] Neurology [address] [place] [address] Edmar Severino MD [address] [place] [address], 2nd [place] [address] 05/14/2025 1:00 PM EDT Office Visit NEUROBEHAVIORAL [address], 3[address] Floor, [address] [place] [address] Rony Moore MD [address] [place] [address] [email or web address] documented as of this encounter Visit Diagnoses Not on filedocumented in this encounter Additional Health Concerns Assessment Noted Time PHQ-2 Depression Total Score: 0 01/27/20 8:32 AM EST documented as of this encounter Care Teams Certified Credit Counselor Relationship Specialty Start Date End Date Trell Serrano MD 2 [facility] [address] [place] [address] [email or web address] PCP - General Family Medicine 04/19/22 03/06/23 Trell Serrano MD [address] [address] [email or web address] PCP - General Family Medicine 03/07/23 Tona Barksdale CNP [address] [address] [email or web address] Nurse Practitioner 06/08/23 Douglas Rojas MD [address] [place] [address] Cardiology 06/08/23 documented as of this encounter Additional Source Comments The information contained in this document represents components of the legal health record. It is not the complete legal health record.[facility]
--- OUTSIDE RECORDS SUMMARY | 2025-01-21 16:37 | XMS_ITS | Encounter Summary ---
Author Organization [facility] Address [address] [place] [address] Phone Care Team Providers Care Instructional Technology Specialist Name Role Phone Trell Serrano MD Primary Care Provider [phone] Trell Serrano MD Primary Care Provider [phone] Tona Barksdale CNP Unavailable [phone] Douglas Rojas MD Unavailable [phone] Encounter Details Date Type Department Care Team (Late st Contact Info) Description 08/26/2022 Ancillary Orders [facility] [address] [place] [address] Giselle Flor MD [email or web address] Social History Tobacco Use Types Packs/Day Years [...] Description 02/14/2025 7:15 AM EST Office Visit [facility] [address]rd Floor, [address] [place] [address] Yifan Forrester DO [address] [place] [address] 03/28/2025 1:30 PM EST Office Visit [facility] Neurology [address] [place] [address] Edmar Severino MD [address], 2nd [place] [address] 05/14/2025 1:00 PM EDT Office Visit [address], 3rd Floor, [address] [place] [address] Rony Moore MD [address] [place] [address] [email or web address] documented as of this encounter Visit Diagnoses Not on filedocumented in this encounter Additional Health Concerns Assessment Noted Time PHQ-2 Depression Total Score: 0 08/13/19 23 1:26 PM EDT documented as of this encounter Care Teams Instructional Technology Specialist Relationship Specialty Start Date End Date Trell Serrano MD [address] [place] [address] PCP - General Family Medicine 04/19/22 03/06/23 Trell Serrano MD [address] [phone] PCP - General Family Medicine 03/07/23 Tona Barksdale CNP [address] [place] [address] [address] [place] [address] [email or web address] Nurse Practitioner 06/08/23 Douglas Rojas MD [address] [place] [address] [address] [place] [address] [email or web address] Cardiology 06/08/23 documented as of this encounter Additional Source Comments The information contained in this document represents components of the legal health record. It is not the complete legal health record.[facility]
--- OUTSIDE RECORDS SUMMARY | 2025-01-21 16:37 | XMS_ITS | Clinical Summary ---
Author Organization [facility] Address [address] [place] [address] Phone Care Team Providers Care Armament Aircraft Mechanic Name Role Phone Trell Serrano MD Primary Care Provider [phone] Tona Barksdale MARKET DEVELOPMENT EXECUTIVE Unavailable [phone] Douglas Rojas MD Unavailable [phone] Allergies No known active allergies Medications aspirin [...] weeks . VV . [facility] in [facility] now. Restart buspar 5 mg bid. [...] Reviewed side effects- information provided Referral to [facility] to be connected with a therapist Referral [...] Reviewed side effects- information provided Referral to [facility] to be connected with a therapist Referral [...] & Plan (02/16/2023 4:38 PM EST): Positive [place] Advised to take meclizine as needed for [...] Attempt to obtain limited report from monitor #[phone] Fall precautions Hypophosphatemia 01/29/2023 04/16/2024 Assessment & [...] Description 11/28/2024 11:15 AM EDT Office Visit [facility] [address] [place] [address] Jeanette Mueller CNP Pilar cyst of scalp (Primary Dx) 11/28/2024 8:45 AM EDT - 11/28/2024 11:59 PM EDT Hospital Encounter [facility] Lab Pathology [address] [place] [address] Jeanette Mueller CNP Discharge Disposition: Home or Self Care 11/14/2024 Telephone [facility] [address] [facility] [address] [place] [address] Trell Serrano MD Appointment 11/09/2024 Refill [facility] [address] [facility] [address] [place] [address] Trell Serrano MD Medication Refill from Last 3 Months Immunizations Immunization Administration [...] Description 02/14/2025 7:15 AM EST Office Visit [facility] [address] [facility] 3rd Floor, [address] [place] [address] Yifan Forrester DO [address] [facility] [address] [place] [address] 03/28/2025 1:30 PM EST Office Visit [facility] Neurology [address] [place] [address] Edmar Severino MD [address] [facility], 2nd [place] [address] 05/14/2025 1:00 PM EDT Office Visit [address], 3[address] Floor, [address] [place] [address] Rony Moore MD [address] [place] [address] [email or web address] Health Maintenance Due Date Last Done Comments [...] PATHOLOGY Routine 11/28/2024 8: 54 AM EDT HEPATITIS C ANTIBODY, QUALITATIVE Routine 07/13/2022 10:54 AM EDT Need for hepatitis C screening test from Last 3 Months or Most Recently Relevant to Health Maintenance Results * Anatomic Pathology (Non-MGB) (11/28/2024 8:54 AM EDT) Report [address] [address] Spinning Machine Operator: Aubree Galvan MD Surgical Pathology Report FINAL [...] cut surface filled with friable brownyellow material. Stone Setter sections are submitted in A1. B. LEFT LATERAL SCALP CYST: The specimen is received in formalin labeled with the patient's name, medical record number, and left lateral scalp , and consists of a disrupted portion of quintero-white soft tissue measuring 2.4 x 1.1 x 0.7 cm. No skin is grossly identified. The intact margin is inked blue. Sectioning reveals a cystic cut surface. Stone Setter sections are submitted in B1. [facility] 11/30/2024 Grossing Staff: [facility] Some processing of this specimen was performed at [place] [address], Spinning Machine Operator Aubree Galvan MD. Due to loss of elastic tension and/or tissue shrinkage in formalin, the clinical sizes of tissue specimens may be larger than those provided in this report. Patient Name: RY MORALES : 1995 (Age: 29) Sex: M [facility] Date of Operation: 11/28/2024 Date of Reported: 12/02/2024 15:26 Ordered By: Jeanette Mueller MARKET DEVELOPMENT EXECUTIVE Copy To: [facility] Clinical History Pilar cyst of scalp [L72.11]Right anterior scalp cyst and left lateral scalp cyst [facility] Final Diagnosis A. RIGHT ANTERIOR SCALP CYST, EXCISION:Pilar cyst.B. LEFT LATERAL SCALP CYST, EXCISION: Pilar cyst. [facility] Gross Description A. RIGHT ANTERIOR SCALP [...] cut surface filled with friable brownyellow material. Stone Setter sections are submitted in A1.B. LEFT LATERAL SCALP CYST: The specimen is received in formalin labeled with the patient's name, medical record number, and left lateral scalp , and consists of a disrupted portion of quintero-white soft tissue measuring 2.4 x 1.1 x 0.7 cm. No skin is grossly identified. The intact margin is inked blue. Sectioning reveals a cystic cut surface. Stone Setter sections are submitted in B1. [facility] Conversion Type (Conversion Source) 11/28/2024 8:54 AM EDT 11/29/2024 8:54 AM EDT Conversion Type (Conversion Source) 11/28/2024 8:54 AM EDT 11/29/2024 8:54 AM EDT us Jeanette Mueller CNP LAB PATHOLOGY ORDERABL ES Edited Result - Final Performing Organization Address City/[facility]/[place] [address], [facility] [phone] * Hepatitis C antibody, qualitative (07/13/2022 10:54 AM EDT) HCV ANTIBODY Negative Negative [facility] Blood 07/13/2022 10:5 4 AM EDT 07/13/2022 1:42 PM EDT us Trell Serrano MD LAB BLOOD BKR ORDERABLES Fin al Result Performing Organization Address City/[facility]/ZIP Co de Phone Number [place], [place] [address] [phone] from Last 3 Months or Most Recently Relevant to Health Maintenance Insurance BLUE CROSS OUT OF STATE PPO BLUE CROSS OUT OF STATE PPO BLUE CROSS OUT OF STATE PPO BLUE CROSS OUT OF STATE PPO BLUE CROSS OUT OF STATE PPO BLUE CROSS OUT OF STATE PPO BLUE CROSS OUT OF STATE PPO Advance Directives For more information, please contact: [phone] (9AM - 5PM [facility], Monday-Monday) Documents on File Type Date Recorded Patient Stone Setter Expl anation Healthcare Proxy 01/31/2023 3:10 PM * Full Code (Latest Code Status on File) Date Activated Date Inactivated Comments 01/29/2023 3:44 PM Question Answer Comments Code Status Confirmed With: Patient Code Status Communicated To: Inpatient Attending Care Teams Armament Aircraft Mechanic Relationship Specialty Start Date End Date Trell Serrano MD [address] [address] PCP - General Family Medicine 03/07/23 Tona Barksdale CNP [address] [address] Nurse Practitioner 06/08/23 Douglas Rojas MD [address] [place] [address], [address] [address] Cardiology 06/08/23 Additional Source Comments The information contained in this document represents components of the legal health record. It is not the complete legal health record.[facility]
--- OUTSIDE RECORDS SUMMARY | 2025-01-21 16:37 | XMS_ITS | Clinical Summary ---
Author Organization [facility] Address [address] [place] [address] Phone Care Team Providers Care Experience Planning Strategist Name Role Phone Abraham Loredo MD Primary Care Provider [phone] Surgical History Surgery Date Site/Laterality Comments KNEE ARTHROSCOPY W/ MENISCAL REPAIR 2011 PROCEDURE: IN ARTHROSCOPY KNEE W/MENISCUS RPR MEDIAL/LATERAL; COMMENT: R [...] complete [place] [id number] [facility] ([place]) Care Teams Experience Planning Strategist Relationship Specialty Start Date End Date Abraham Loredo MD [facility] [address] [place] [address] [address] [place] [address] PCP - General Internal Medicine 05/31/24
--- OUTSIDE RECORDS SUMMARY | 2025-01-21 16:37 | XMS_ITS | Continuity of Care Document ---
Author Organization [place] [facility], E[facility] Address [address] [place] [place] [address] Care Team Providers Care Casing Grader Name Role Phone YOANDY ESTES Primary Care Provider [phone] Assessment Encounter Date Assessment Date Assessment LastModified [...] Organization Details Recorded Time Otitic barotraum a 93302451 Active 2016 Otitic barotraum a, initial encounter ; Note: Date Diagnosed : 05/19/2016 10:59 AM (T70.0XXA ) Not Available [facility] 4 02:58:03 Bilateral disorder of Eustachia n tubes 52213763855 88374 Active 2016 Other specified disorders of Eustachia n tube, bilateral ; Note: Date Diagnosed : 05/19/2016 10:59 AM (H69.83) Not Available [facility] 4 02:58:03 Bilateral temporoma ndibular joint pain 34991751059 879915 Active 2016 Arthralgi a of bilateral temporoma ndibular joint; Note: Date Diagnosed : 05/19/2016 10:59 AM (M26.623) Not Available [facility] 4 02:58:00 Bilateral earache 098842845 Active 2019 Otalgia, bilateral ; Note: Date Diagnosed : 03/26/2019 10:47 AM (H92.03) Not Available [facility] 4 02:58:02 Otalgia of right ear 8762746365 Active 2019 Otalgia, right ear; Note: Date Diagnosed : 03/26/2019 10:35 AM (H92.01) Not Available [facility] 4 02:58:00 Abnormal auditory perceptio n 29589224 Active 2019 Other abnormal auditory perceptio ns, bilateral ; Note: Date Diagnosed : 03/26/2019 10:49 AM (H93.293) Not Available [facility] 4 02:58:02 Abnormal auditory perceptio n 65982098 Active 2024 REJI TAM, AuD [address] [facility] [place] [facility], [place], [address] , [place] - [facility] 5 10:32:12 Temporoma ndibular joint disorder 62001297 Active 2024 ROMY MADDEN MD [address] [facility],[place] [address], [place], [address] , [place] - [facility] 5 12:02:45 Migraine 52868440 Active 2024 ROMY MADDEN MD [address] [facility],[place] [address], [place], [address] , [place] [facility] 5 12:03:00 Problem Notes None recorded. Procedures Surgical History Date Name Laterality Status Provider Name and Address Organization Details Recorded Time 11/08/2024 Air & Speech Audio with Tymps - 31997, 31916 & 13518 completed REJI TAM, Do [address] [facility],[place] [facility], [place], [address], [place] [facility] 11/08/2024 10:30:40 Imaging Results None recorded. Procedure [...] mg capsule 11/08 completed Medicatio n ID: [id number] Du ration Value: 10 Brand Name: cephalexi n Send Method: E-Prescri bed Subs Allowed: subs OK Specia l Instructi on: TAKE 1 CAPSULE BY MOUTH 3 TIMES A DAY Medic ationGene ricName: cephalexi n Not Available Not Available Not Available polymyxin B sulfate 10,000 unit-trim ethoprim 1 mg/mL eye drops 11/08 completed Medicatio n ID: [id number] Du ration Value: 10 Brand Name: polymyxin [...] Updated DateTime 11/08/2024 182.88 cm 26.4 kg/m2 37394.51 g Tatyana Mejia [place] - [facility] 11/08/2024 10:30:13 Social History Question Answer Notes LastModified by Organizat ion Details LastModified Time Tobacco Smoking Status Never Smoker ROMY MADDEN MD [address] [place] [address], [address], [place] [facility] 11/08/2024 12:00:41 How Many Years Have You Consumed Alcohol? 10 Information not available 11/08/2024 What Type Of Java Technical Manager Do You Use? None Information not [...] Disorder N Anesthesia Complications N Heart Attack (MS) N Other Skin Condition N Diabetes N [...] ICD10 Code Diagnosis IMO Codes Diagnosis Note [id number] ROMY MADDEN MD [facility] on [address] [place] [address] 11/08/2024 10:12:39 11/08/2024 11:00:05 Abnormal auditory perception 06520756 H93.293 78017879 Audiologic al evaluation results: Right ear: Normal hearing with excellent word recognitio n. Left ear: Normal hearing with excellent word recognitio n. Tympanomet ry: Right Ear:Type A Left Ear:Type A Temporoman dibular joint disorder 79044160 M26.609 574354 Migraine 13050121 G43.90 9 75286 Health Concerns Section Related Observation LastModified by Organization Detai ls LastModified Time None Recorded Concern Status LastModified by Organization Details LastModified Time None Recorded Payers Encounter Date Sequence Insurance Name Policy Number Policy Crawford Covered Member ID Crawford Member ID Guarantor Name 11/08/2024 1 GUILLERMINA-CHRISTOPHE (PPO) [id number] Ry Pino [id number] Ry Pino Notes Date Note Type [...] 6-7 hours per night ROMY MADDEN MD [address] [place] [address], [place], [address], [place] [facility] 11/08/2024 12:06:47
--- OUTSIDE RECORDS SUMMARY | 2025-01-21 16:37 | XMS_ITS | Encounter Summary ---
Author Organization [facility] Address [address] [place] [address] Phone Care Team Providers Care Wood Technologist Name Role Phone Trell Serrano MD Primary Care Provider [phone] Trell Serrano MD Primary Care Provider [phone] Tona Barksdale CNP Unavailable [phone] Douglas Rojas MD Unavailable [phone] Encounter Details Date Type Department Care Team (Late st Contact Info) Description 09/02/2022 Ancillary Orders [facility] [address] [place] [address] Giselle Flor MD [email or web address] Soft tissue mass Social History Tobacco Use [...] Description 02/14/2025 7:15 AM EST Office Visit [facility] [address] [facility] 3rd Floor, [address] [place] [address] Yifan Forrester DO [address] [facility] [address] [place] [address] 03/28/2025 1:30 PM EST Office Visit [facility] Neurology [address] [place] [address] Edmar Severino MD [address] [facility], 2nd [place] [address] 05/14/2025 1:00 PM EDT Office Visit [address], 3rd Floor, [address] [place] [address] Rony Moore MD [address] [place] [address] [email or web address] documented as of this encounter Results * [...] the right inguinal region. Giselle Flor MD [facility] EXTREMITY Edited Result - Final documented in this encounter Visit Diagnoses Diagnosis Soft tissue mass Disorders of soft tissue, unspecified Soft tissue mass Disorders of soft tissue, unspecified documented in this encounter Additional Health Concerns Assessment Noted Time PHQ-2 Depression Total Score: 0 08/13/19 1:26 PM EDT documented as of this encounter Care Teams Wood Technologist Relationship Specialty Start Date End Date Trell Serrano MD [address] [employer] [address] [address] PCP - General Family Medicine 04/19/22 03/06/23 Trell Serrano MD [address] [address] PCP - General Family Medicine 03/07/23 Tona Barksdale CNP 2 [employer] [address] [phone] Nurse Practitioner 06/08/23 Douglas Rojas MD [address] [place] [address], [facility] [address] [place] [address] Cardiology 06/08/23 documented as of this encounter Additional Source Comments The information contained in this document represents components of the legal health record. It is not the complete legal health record.[facility]
--- OUTSIDE RECORDS SUMMARY | 2025-01-21 16:37 | XMS_ITS | Encounter Summary ---
Author Organization [facility] Address [address] [place] [address] Phone Care Team Providers Care Family Protection Specialist Name Role Phone Trell Serrano MD Primary Care Provider [phone] Trell Serrano MD Primary Care Provider [phone] Tona Barksdale CNP Unavailable [phone] Douglas Rojas MD Unavailable [phone] Encounter Details Date Type Department Care Team (Late st Contact Info) Description 01/24/2023 Procedure Pass Non-Invasive Cardiology [address] [place] [address] Social History Tobacco Use Types Packs/Day Years [...] 01/25/2023 8:24 AM Jessica Hidalgo RN * [place] Suicide Severity Rating Scale (Screener/Recent Self-Report) Question [...] Description 02/14/2025 7:15 AM EST Office Visit [facility] [address] [place] [address] 3rd [facility], [address] [place] [address] Yifan Forrester DO [address] [place] [address] [place] [address] 03/28/2025 1:30 PM EST Office Visit [facility] Neurology [address] [place] [address] Edmar Severino MD [address] [place] [address], 2nd [place] [address] 05/14/2025 1:00 PM EDT Office Visit [facility] [address], 3rd Floor, [address] [place] [address] Rony Moore MD [address] [place] [address] [email or web address] documented as of this encounter Visit Diagnoses Not on filedocumented in this encounter Additional Health Concerns Assessment Noted Time PHQ-2 Depression Total Score: 0 08/13/19 23 1:26 PM EDT documented as of this encounter Care Teams Family Protection Specialist Relationship Specialty Start Date End Date Trell Serrano MD 2 [facility] [address] [place] [address] PCP - General Family Medicine 04/19/22 03/06/23 Trell Serrano MD [address] [address] PCP - General Family Medicine 03/07/23 Tona Barksdale CNP [address] [address] Nurse Practitioner 06/08/23 Douglas Rojas MD [address] [place] [address], [place] [address] [place] [address] Cardiology 06/08/23 documented as of this encounter Additional Source Comments The information contained in this document represents components of the legal health record. It is not the complete legal health record.[facility]
--- OUTSIDE RECORDS SUMMARY | 2025-01-21 16:37 | XMS_ITS | Encounter Summary ---
Author Organization [facility] Address [address] [facility] [address] [place] [address] Phone Care Team Providers Care Meter Shop Supervisor Name Role Phone Trell Serrano MD Primary Care Provider [phone] Tona Barksdale [facility] Unavailable [phone] Douglas Rojas MD Unavailable [phone] Reason for Visit * Reason Onset Date Comments Appointment 11/14/2024 Encounter Details Date Type Department Care Team (Late st Contact Info) Description 11/14/2024 Telephone [facility] [address] [place] [address] Trell Serrano MD [address] [place] [address] [email or web address] Appointment Social History Tobacco Use Types Packs/Day [...] Description 02/14/2025 7:15 AM EST Office Visit [facility] [address] [facility] 3rd [facility], [address] [place] [address] Yifan Forrester DO [address] [place] [address] 03/28/2025 1:30 PM EST Office Visit [facility] Neurology [address] [place] [address] Edmar Severino MD [address] [place] [address], 2nd [place] [address] 05/14/2025 1:00 PM EDT Office Visit [address], 3rd Floor, [address] [place] [address] Rony Moore MD [address] [place] [address] [email or web address] documented as of this encounter Visit Diagnoses Not on filedocumented in this encounter Additional Health Concerns Assessment Noted Time PHQ-9 Depression Total Score: 5 04/25/19 24 8:35 AM EST PHQ-2 Depression Total Score: 1 09/12/19 25 1:37 PM EDT documented as of this encounter Care Teams Meter Shop Supervisor Relationship Specialty Start Date End Date Trell Serrano MD [address] [address] [place] [address] PCP - General Family Medicine 03/07/23 Tona Barksdale CNP [address] [address] [place] [address] Nurse Practitioner 06/08/23 Douglas Rojas MD [address] [place] [address], [address] [address] Cardiology 06/08/23 documented as of this encounter Additional Source Comments The information contained in this document represents components of the legal health record. It is not the complete legal health record.[facility]
--- OUTSIDE RECORDS SUMMARY | 2025-01-21 16:37 | XMS_ITS | Encounter Summary ---
Author Organization [facility] Address [address] [place] [address] Phone Care Team Providers Care Machine Feeder Floorperson Name Role Phone Trell Serrano MD Primary Care Provider [phone] Trell Serrano MD Primary Care Provider [phone] Tona Barksdale CNP Unavailable + [phone] Douglas Rojas MD Unavailable [phone] Encounter Details Date Type Department Care Team (Late st Contact Info) Description 01/25/2023 Procedure Pass [facility] [address] [place] [address] Social History Tobacco Use Types Packs/Day Years [...] 01/25/2023 8:24 AM Jessica Hidalgo RN * [place] Suicide Severity Rating Scale (Screener/Recent Self-Report) Question [...] Description 02/14/2025 7:15 AM EST Office Visit [facility] [address] [place] [address] [address]rd [facility], [address] [place] [address] Yifan Forrester DO [address] [place] [address] [place] [address] 03/28/2025 1:30 PM EST Office Visit [facility] Neurology [address] [place] [address] Edmar Severino MD [address] [place] [address], 2nd [place] [address] 05/14/2025 1:00 PM EDT Office Visit [facility]OBEHAVIORAL [address], 3rd Floor, [address] [place] [address] Rony Moore MD [address] [place] [address] [email or web address] documented as of this encounter Visit Diagnoses Not on filedocumented in this encounter Additional Health Concerns Assessment Noted Time PHQ-2 Depression Total Score: 0 08/13/19 23 1:26 PM EDT documented as of this encounter Care Teams Machine Feeder Floorperson Relationship Specialty Start Date End Date Trell Serrano MD 2 [facility] 180 [place] [address] PCP - General Family Medicine 04/19/22 03/06/23 Trell Serrano MD [address] [address] PCP - General Family Medicine 03/07/23 Tona Barksdale CNP [address] [address] Nurse Practitioner 06/08/23 Douglas Rojas MD [address] [place] [address], [facility] [address] [place] [address] Cardiology 06/08/23 documented as of this encounter Additional Source Comments The information contained in this document represents components of the legal health record. It is not the complete legal health record.[facility]
--- OUTSIDE RECORDS SUMMARY | 2025-01-21 16:37 | XMS_ITS | Encounter Summary ---
Author Organization [facility] Address [address] [place] [address] Phone Care Team Providers Care Clinical Laboratory Technician Name Role Phone Trell Serrano MD Primary Care Provider [phone] Trell Serrano MD Primary Care Provider [phone] Tona Barksdale CNP Unavailable + [phone] Douglas Rojas MD Unavailable [phone] Encounter Details Date Type Department Care Team (Late st Contact Info) Description 01/25/2023 Procedure Pass Non-Invasive Cardiology 30 [place] [address] Social History Tobacco Use Types Packs/Day Years [...] 01/25/2023 8:24 AM Jessica Hidalgo RN * [place] Suicide Severity Rating Scale (Screener/Recent Self-Report) Question [...] Description 02/14/2025 7:15 AM EST Office Visit [facility] [address] [place] [address] [address]rd [facility], [address] [place] [address] Yifan Forrester DO [address] [place] [address] [place] [address] 03/28/2025 1:30 PM EST Office Visit [facility] Neurology [address] [place] [address] Edmar Severino MD [address] [place] [address], 2nd [place] [address] 05/14/2025 1:00 PM EDT Office Visit [facility]OBEHAVIORAL [address], 3rd Floor, [address] [place] [address] Rony Moore MD [address] [place] [address] [email or web address] documented as of this encounter Visit Diagnoses Not on filedocumented in this encounter Additional Health Concerns Assessment Noted Time PHQ-2 Depression Total Score: 0 08/13/19 23 1:26 PM EDT documented as of this encounter Care Teams Clinical Laboratory Technician Relationship Specialty Start Date End Date Trell Serrano MD [address] [facility] 180 [place] [address] PCP - General Family Medicine 04/19/22 03/06/23 Trell Serrano MD [address] [address] PCP - General Family Medicine 03/07/23 Tona Barksdale CNP [address] [address] Nurse Practitioner 06/08/23 Douglas Rojas MD [address] [place] [address], [facility] 301 [place] [address] Cardiology 06/08/23 documented as of this encounter Additional Source Comments The information contained in this document represents components of the legal health record. It is not the complete legal health record.[facility]
--- OUTSIDE RECORDS SUMMARY | 2025-01-21 16:37 | XMS_ITS | Encounter Summary ---
Author Organization [facility] Address [address] [place] [address] Phone Care Team Providers Care Stitch Welder Name Role Phone Trell Serrano MD Primary Care Provider [phone] Trell Serrano MD Primary Care Provider [phone] Tona Barksdale CNP Unavailable [phone] Douglas Rojas MD Unavailable [phone] Encounter Details Date Type Department Care Team (Late st Contact Info) Description 08/26/2022 Ancillary Orders [facility] [address] [place] [address] Giselle Flor MD [email or web address] Soft tissue mass Social History Tobacco Use [...] Description 02/14/2025 7:15 AM EST Office Visit [facility] [address] Floor, [address] [place] [address] Yifan Forrester DO [address] [facility] [address] [place] [address] 03/28/2025 1:30 PM EST Office Visit [facility] Neurology 22 [place] [address] Edmar Severino MD [address] [facility], 2nd [place] [address] 05/14/2025 1:00 PM EDT Office Visit [address], 3rd Floor, [address] [place] [address] Rony Moore MD [address] [place] [address] [email or web address] documented as of this encounter Visit Diagnoses Diagnosis Soft tissue mass Disorders of soft tissue, unspecified documented in this encounter Additional Health Concerns Assessment Noted Time PHQ-2 Depression Total Score: 0 08/13/19 23 1:26 PM EDT documented as of this encounter Care Teams Stitch Welder Relationship Specialty Start Date End Date Trell Serrano MD [address] [employer] [address] [place] [address] PCP - General Family Medicine 04/19/22 03/06/23 Trell Serrano MD 2 [employer] [facility] [address] [place] [address] PCP - General Family Medicine 03/07/23 Tona Barksdale CNP [address] [place] [address] [address] [place] [address] [email or web address] Nurse Practitioner 06/08/23 Douglas Rojas MD [address] [place] [address], [facility] [address] [place] [address] [email or web address] Cardiology 06/08/23 documented as of this encounter Additional Source Comments The information contained in this document represents components of the legal health record. It is not the complete legal health record.[facility]
== END ==
LOC: HO.SL 12:54
PROVIDERS: Visit Provider Psychiatry & Neurology Neurology
DX: G47.33 Obstructive sleep apnea (adult) (pediatric) (principal); R06.83 Snoring; G47.10 Hypersomnia, unspecified
CPT/HCPCS: 95806

== ENCOUNTER → 2025-01-21 13:03 | Outpatient (BNV) | payer BC, SELFPAY | PROVIDERS: Visit Provider Psychiatry & Neurology Neurology | DX: G47.33 Obstructive sleep apnea (adult) (pediatric) (principal) | CPT/HCPCS: 95806 ==

== ENCOUNTER 2025-02-14 08:33 | Outpatient (REF) | payer BC, SELFPAY ==
--- OUTSIDE RECORDS SUMMARY | 2025-02-09 23:59 | XMS_ITS | Continuity of Care Document ---
Author Organization [facility] Address [address] [facility], 3r d Floor, [address] [place] [address]- Support Name Relationship Address Phone AUDI MORALES mother Unknown Unavailabl e AUDI MORALES mother Unknown Unavailabl e Encounter [facility] Date(s): 01/10/25 - 02/09/25 [facility] [address] [facility] 3rd Floor, [address] [place] [address]- Encounter Type: Triage Allergies, Adverse Reactions, Alerts No Known Allergies Medications aspirin 81 mg oral delayed release tablet = 81 mg, By Mouth, Daily, # 100 tablet, 0 Refills, Maintenance, 07/09/24 8:59:00 AM EDT, EC Tablet, [facility]/pharmacy #[id number], Partial fill upon patient request if the prescription is for a schedule II opioid drug., 183, cm, 07/09/24 8:07:00 EDT, Height, 85.8, kg, 07/06/24 16:29:00 EDT, Dry Weight Start Date: 07/09/24 Stop Date: 10/07/24 Status: Ordered Medication Dispense Status: Completed Quantity: 100.0 Unit: tablet Total Allowed Fills: 1 Fills Dispensed: 0 Plavix 75 mg oral tablet 75 mg, By Mouth, Daily, # 18 tablet, Refills 0, Tot. Refills 0, Maintenance, 07/09/24 9:00:00 AM EDT, Route to Pharmacy Electronically, [facility]/pharmacy #[id number], Partial fill upon patient request if the prescription is for a schedule II opioid drug., 183, cm, 07/09/24 8:07:00 EDT, Height, 85.8, kg, 07/06/24 16:29:00 EDT, Dry Weight Start Date: 07/09/24 Stop Date: 07/27/24 Status: Ordered Medication Dispense Status: Completed Quantity: 18.0 Unit: tablet Total Allowed Fills: 1 Fills Dispensed: 0 Sertraline = 50 mg, By Mouth, Daily, 0 Refills, Maintenance, 04/17/24 1:54:00 AM EST, Partial fill upon patientrequest if the prescription is for a schedule II opioid drug. Start Date: 04/17/24 Status: Ordered Medication Dispense Status: Completed Total Allowed Fills: 1 Fills Dispensed: 0 Social History Social History Type Response Sex Sex Representation Male (finding) Patient Care team information Care Team Personnel Name: Chico Tan RN Position: S RN Member Role: Primary Care Nurse Name: Khoa Ryan RN Position: [facility] RN Member Role: Primary Care Nurse Care Team Related Persons Name: AUDI MORALES Insurance Providers Guarantor name: [facility] Plan Information #: 1 Payer: [employer] Payer Identifier: SHARON Member Number: [id number] Group Number: [id number] Subscriber Identifier: SHARON Relationship to Subscriber: self Coverage Type: NA Coverage Verification Date: NA Telecom: SHARON Address:
--- NOTE | ~2025-02-14 | CT_ITS ---
EXAMINATION: CT ANGIOGRAM NECK CLINICAL INFORMATION: Superficial vertebral artery dissection. R 42. Dizziness and giddiness. COMPARISON: None available. TECHNIQUE: Contiguous axial images from the skull base to the thoracic inlet/aortic arch using 0.6 mm collimation following the IV contrast administration during the arterial phase of 70 cc Omnipaque 350 strength without immediate complications. Sagittal and coronal reformatted images acquired. Maximum intensity projections. The degree of stenosis determined by NASCET criteria. This CT examination was performed using dose optimization techniques as appropriate, variously including the following: *Automated exposure control *Adjustment of mA and/or kV according to patient size (this includes techniques or standardized protocols for targeted exams where dose is matched to indication/reason for exam; i.e. extremities or head) *Use of iterative reconstruction technique DLP: 697 mGy-cm FINDINGS: Aortic arch: Normal IV contrast enhancement. No intimal flap. Normal diameter. No gross calcified plaque. No focal stenosis. Aberrant right subclavian artery with a retroesophageal trajectory origin in the distal to the left subclavian artery. Right CCA: Normal patency. No focal stenosis. No intimal flap. Right ICA: Normal patency. No focal stenosis. No intimal flap. Left CCA: Normal patency. No focal stenosis. No intimal flap. Left ICA: Normal patency. No focal stenosis. No intimal flap. V1/V2 segments: Normal patency. No focal stenosis. No intimal flap. Both orientating from the subclavian artery. Left vertebral artery is dominant. Ancillary findings: Normal enhancement pattern of the vessels of the port gamble of Kamara with a complete port gamble of Kamara. CT/CT angio neck IMPRESSION: No vertebral artery dissection. No high degree stenosis. Aberrant right subclavian artery. Fleischner guidelines were followed. Electronically signed by: Compa Brennan MD 02/14/2025 09:18 AM EST
--- OUTSIDE RECORDS SUMMARY | 2025-02-14 08:46 | XMS_ITS | Data Portability ---
Author Organization [place] - [facility], Allergy Address [address] [address] Care Team Providers Care Director Advertising Name Role Phone YOANDY ESTES Primary Care [...] Organization Details Recorded Time Otitic barotraum a 26520402 Active 2016 Otitic barotraum a, initial encounter ; Note: Date Diagnosed : 05/19/2016 10:59 AM (T70.0XXA ) Not Available [facility] 4 02:58:03 Bilateral disorder of Eustachia n tubes 23033181625 97464 Active 2016 Other specified disorders of Eustachia n tube, bilateral ; Note: Date Diagnosed : 05/19/2016 10:59 AM (H69.83) Not Available [facility] 4 02:58:03 Bilateral temporoma ndibular joint pain 26652002338 230619 Active 2016 Arthralgi a of bilateral temporoma ndibular joint; Note: Date Diagnosed : 05/19/2016 10:59 AM (M26.623) Not Available [facility] 4 02:58:00 Bilateral earache 564666037 Active 2019 Otalgia, bilateral ; Note: Date Diagnosed : 03/26/2019 10:47 AM (H92.03) Not Available [facility] 4 02:58:02 Otalgia of right ear 3683131129 Active 2019 Otalgia, right ear; Note: Date Diagnosed : 03/26/2019 10:35 AM (H92.01) Not Available [facility] 4 02:58:00 Abnormal auditory perceptio n 76794898 Active 2019 Other abnormal auditory perceptio ns, bilateral ; Note: Date Diagnosed : 03/26/2019 10:49 AM (H93.293) Not Available [facility] 4 02:58:02 Abnormal auditory perceptio n 15985420 Active 2024 [address]RA[address]O [address],[place] [facility], [place], [address] , [place] - [facility] 5 10:32:12 Temporoma ndibular joint disorder 08377107 Active 2024 ROMY MADDEN MD [address] [facility] [facility], [place], [address] , [place] - [facility] 12:02:45 Migraine 53873229 Active 2024 ROMY MADDEN MD [address],[place] [address], [place], [address] , [place] - [facility] 12:03:00 Problem Notes None recorded. Procedures Surgical History Date Name Laterality Status Provider Name and Address Organization Details Recorded Time 11/08/2024 Air & Speech Audio with Tymps - 89947, 92135 & 48628 completed Do FRAUSTO [address] [address], [place], [address], [facility] - [facility] 11/08/2024 10:30:40 Imaging Results None recorded. Procedure [...] mg capsule 11/08 completed Medicatio n ID: [id number] Du ration Value: 10 Brand Name: cephalexi n Send Method: E-Prescri bed Subs Allowed: subs OK Specia l Instructi on: TAKE 1 CAPSULE BY MOUTH 3 TIMES A DAY Medic ationGene ricName: cephalexi n Not Available Not Available Not Available polymyxin B sulfate 10,000 unit-trim ethoprim 1 mg/mL eye drops 11/08 completed Medicatio n ID: [id number] Du ration Value: 10 Brand Name: polymyxin [...] Updated DateTime 11/08/2024 182.88 cm 26.4 kg/m2 63157.51 g Tatyana Mejia [place] - [facility] 11/08/2024 10:30:13 Social History Question Answer Notes LastModified by Organizat ion Details LastModified Time Tobacco Smoking Status Never Smoker ROMY MADDEN MD [address] [place] [address], [phone], [place] - [facility] 11/08/2024 12:00:41 How Many Years Have You Consumed Alcohol? 10 Information not available 11/08/2024 What Type Of Digital Publishing Specialist Do You Use? None Information not available [...] Dementia N Nasal polyps N Asthma N High Cholesterol N Sleep Disorder N GERD/Reflux N Liver Disease N Headaches Y Fibromyalgia N Hypertension N Speech Delay N Kidney Disease N Past Encounters Encounter ID Performer Location Encounter Start Date Encounter Closed Date Diagnosis/Indication Diagnosis SNOMED-CT Code Diagnosis ICD10 Code Diagnosis IMO Codes Diagnosis Note [id number] ROMY MADDEN MD [facility] on [address] [place] [address] 11/08/2024 10:12:39 11/08/2024 11:00:05 Abnormal auditory perception 34451036 H93.293 [id number] Audiologic al evaluation results: Right ear: Normal hearing with excellent word recognitio n. Left ear: Normal hearing with excellent word recognitio n. Tympanomet ry: Right Ear:Type A Left Ear:Type A Temporoman dibular joint disorder 79699900 M26.609 103802 Migraine 54782346 G43.90 9 58243 Health Concerns Section Related Observation LastModified by Organization Detai ls LastModified Time None Recorded Concern Status LastModified by Organization Details LastModified Time None Recorded Advance Directives Directive None Recorded Payers Insurance Date Sequence Insurance Name Policy Number Policy Crawford Covered Member ID Crawford Member ID Guarantor Name 11/08/2024 1 MARLA (PPO) [id number] [address] [id number] Notes Date Note Type [...] 6-7 hours per night ROMY MADDEN MD [address] [place] [address], [place], [address], [facility] - [facility] 11/08/2024 12:06:47
--- OUTSIDE RECORDS SUMMARY | 2025-02-14 08:46 | XMS_ITS | Clinical Summary ---
Author Organization [facility] Address [address] [place] [phone] Phone Care Team Providers Care Facility Assistant Name Role Phone Abraham Loredo MD Primary Care Provider [phone] Surgical History Surgery Date Site/Laterality Comments KNEE ARTHROSCOPY W/ MENISCAL REPAIR 2011 PROCEDURE: AR ARTHROSCOPY KNEE W/MENISCUS RPR MEDIAL/LATERAL; COMMENT: R [...] Orientation Straight 05/31/2024 10 :32 AM EDT Plan of Treatment Health Maintenance Due Date [...] age to complete this topic Insurance DALJIT HONG, CHRISTOPHE [id number] [facility] Care Teams Facility Assistant Relationship Specialty Start Date End Date Abraham Loredo MD [facility] [address] [place] [address] PCP - General Internal Medicine 05/31/24
[2025-02-14] MEDS: iohexoL 350 MG/ML 100 ML INFUS..BTL IV (09:07)
== END 2025-02-14 08:34 | disposition home or self-care (01) ==
LOC: HO.CT 08:33
DX: R42 Dizziness and giddiness (principal); R00.1 Bradycardia, unspecified
CPT/HCPCS: 70498; 93270; Q9967

== ENCOUNTER → 2025-02-14 08:35 | Outpatient (BNV) | payer BC, SELFPAY | PROVIDERS: Visit Provider Radiology Diagnostic Radiology | DX: R42 Dizziness and giddiness (principal); Q25.48 Anomalous origin of subclavian artery | CPT/HCPCS: 70498 ==

== ENCOUNTER → 2025-02-14 09:05 | Outpatient (BNV) | payer BC, SELFPAY | PROVIDERS: Visit Provider Internal Medicine | DX: R00.1 Bradycardia, unspecified (principal) | CPT/HCPCS: 93272 ==